=== PATIENT | female | born 1970 | race Caucasian/White ===

== ENCOUNTER 2024-08-31 06:45 | Outpatient (OUT) | payer BC, SELFPAY ==
--- OUTSIDE RECORDS SUMMARY | 2024-06-20 04:40 | XMS_ITS ---
Author Organization [facility] in [place] Address [address] [place] [address] Care Team Providers Care Mixer Runner Name Role Phone None, Unknown or Primary Care Provider Unavailab Ema Barksdale Unavailable [phone] Allergies Allergen (clinical drug ingredient) Drug/Non Drug [...] Once a day for 30 days Lot: [id number] Exp: 2026dec 18 boxes 05/08/2024 Not-Taking Probiotic [...] point) Points 1 Interpretation Negative Vital Signs Height 66 in 06/20/2024 Weight 197.4 lbs 06/20/2024 BMI 31.86 kg/m2 06/20/2024 Encounters Encounter Location Date Provider Diagnosis Urology [address] [place] [address] 06/20/2024 Ema Hanson Unspecified urinary incontinence R32 [...] * Tk HAGANAneudyOB:[birth year] (54 yo F)Acc No.[id number]:06/20/2024 Patient: Lauren CONTRERAS Provider: UDAY Faust :1970 A ge:54 Y S ex:Female Date:06/20/2024 Address:[address] [place], [place] [address] Pcp:Unknown or None Check In:08:38 AM ESTCheck [...] a day , Notes to Pharmacist: Lot: [id number]: 2026 boxesMedication List reviewed and reconciled with the patientNot-Taking/PRN Gemtesa(Vibegron) 75 MG Tablet 1 tablet Orally Once a day , Notes to Pharmacist: Lot: [id number]: 2026 boxesMedication List reviewed and reconciled with [...] Procedure Codes: 5 1728 COMPLEX CYSTO WVOID [id number] COMPLEX CYSTO WVOID [id number] COMPLEX UROFLOW.WCALIB.89048 COMPLEX UROFLOW.WCALIB.74510 EMG ANAL OTHER THAN [id number] EMG ANAL OTHER THAN [id number] INFORMATION COORDINATOR STUDIES; INTRA-ABDOM.22248 INFORMATION COORDINATOR STUDIES; INTRA-ABDOM. * Follow Up: Dr Lewis/cystoscopy * * Sign off status: Completed Visit Status: C HK (Check Out) true * Provider: Neil Hanson NP-Azalea Date: 0 06/20/2024 Generated for Kelsey sadler/Sangeeta/eTransmitting on: 0 08/31/2024 06:51 AM EDT
--- OUTSIDE RECORDS SUMMARY | 2024-06-26 05:20 | XMS_ITS ---
Author Organization The [facility] in [place] Address [address] [place] [address] Care Team Providers Care Photoresist Printer Name Role Phone None, Unknown or Primary Care Provider Reillyab Rajat Contreras Unavailable [phone] Allergies Allergen (clinical drug ingredient) Drug/Non Drug Allergy documented on EMR Reaction Allergy Type Onset Date Status amoxicillin / clavulanate Augmentin causes yeast infection Drug Allergy Active REASON FOR VISIT Cysto for Incontinence, had bladder sling in 2019, PT stopped oxybutynin last week per risa. Medications Medication SIG (Take, Route, Frequency, Duration) Notes Start Date End Date Status Mirabegron ER 50 MG 1 tablet Orally Once a day for 30 days 06/26/2024 Active Probiotic Active Wellbutrin 05/08/2024 Active Zepbound Active cloNIDine HCl 0.1 MG Oral for 30 Days Active Multivitamin Active Omeprazole 05/08/2024 Active oxyBUTYnin Chloride ER 10 MG TAKE 1 TABLET (10 MG) BY MOUTH DAILY DO NOT CRUSH, CHEW, OR SPLIT. Oral for 90 Days Not-Taking CeleBREX Active Boswellia Active busPIRone HCl 10 MG TAKE 2 TABLETS BY MO UTH IN THE MORNING AND 2 TABLETS BEFORE BEDTIME. Oral for 90 Days Active Lorraine 05/08/2024 Active Social History Tobacco Use: Social History Observation Description Date Details (start date - stop date) Former Smoker NA - NA Tobacco Control (Standard) Question Answer Notes Tobacco use: Former smoker Vital Signs Height 66 in 06/26/2024 Weight 195 lbs 06/26/2024 BMI 31.47 kg/m2 06/26/2024 Encounters Encounter Location Date Provider Diagnosis Urology [address] [place] [address] 06/26/2024 Rajat Lewis Unspecified urinary incontinence R32 Assessments Encounter Date Diagnosis (ICD Code) Assessment Notes Treatment Notes Treatment Clinical Notes Section Notes 06/26/2024 Unspecified urinary incontinence (ICD-10 - R32) try myrbetriq and timed void if not better do botox first may eventually need pubovag sling Plan Of Treatment Medication Medication Name Sig Start Date Stop Date Notes Mirabegron ER 50 MG 1 tablet Orally Once a day for 30 days 06/26/2024 Treatment Notes Assessment Notes Unspecified urinary incontinence try myrbetriq and timed void if not better do botox first may eventually need pubovag sling Next Appt Details Follow Up: 2 Months, Reason: joyce Procedure Notes * Category Sub-Category Detail Notes Flexible Cystoscopy Patient Consent: Risks, bene fits, and some of the potential complications of the procedure were discussed at length with the patient including infection, bleeding, voiding discomfort, urinary retention, fever, chills, sepsis, and others. All questions were answered. Informed consent was obtained. Sterile technique and intraurethral analgesia were used Procedure Note: The lower urinary tr act was carefully examined. The procedure was well-tolerated and without complications. Instructions were given to call the office immediately for bloody urine, difficulty urinating, urinary retention, painful or frequent urination, fever, chills, nausea, vomiting or other illness. The patient stated that he understood these instructions and would comply with them Meatus: Normal size, Normal location, normal condition Urethra: No hypermobility, no leakage Ureteral Orifices: Normal location, nor mal size, normal shape, effluxed clear urine Bladder: no stones, normal mu cosa, no stones Progress Notes * LINDA, AbenaOB:[birth year] (54 yo F)Acc No.[id number]:06/26/2024 0 Patient: Lauren CONTRERAS Provider: Ming Lewis MD :1970 A ge:54 Y S ex:Female Date:06/26/2024 Address:[address] [place], [place] [address] Pcp:Unknown or None Check In:09:13 AM ESTCheck O ut:10:06 AM EST Subjective: * Chief Complaints: * C ysto for Incontinence, had bladder sling in 2019, PT stopped oxybutynin last week per risa. * HPI: U rology General: 06/26/24 Cystoscopy 06/20/24 URO/Risa pt did feel small leak [...] Weakness d enies. G enitourinary: Incontinence a dmits. F requent urination d enies. P ainful urination d enies. B lood [...] T obacco use: F ormer smoker D rugs/Alcohol: C affeine I ntake: 1 -2 cups per day Do you drink alcohol?: 2 per week. * Medications: T akingAllegra Boswellia busPIRone HCl 10 MG Tablet TAKE 2 TABLETS BY MOUTH IN THE MORNING AND 2 TABLETS BEFORE BEDTIME. Oral CeleBREX cloNIDine HCl 0.1 MG Tablet Oral Multivitamin Omeprazole Probiotic Wellbutrin(buPROPion HCl ER (XL)) Zepbound Taking Lorraine Taking Boswellia Taking busPIRone HCl 10 MG Tablet TAKE 2 TABLETS BY MOUTH IN THE MORNING AND 2 TABLETS BEFORE BEDTIME. Oral Taking CeleBREX Taking cloNIDine HCl 0.1 MG Tablet Oral Taking Multivitamin Taking Omeprazole Taking Probiotic Taking Wellbutrin(buPROPion HCl ER (XL)) Taking Zepbound Not-Taking/PRNoxyBUTYnin Chloride ER 10 MG Tablet Extended Release 24 Hour TAKE 1 TABLET (10 MG) BY MOUTH DAILY DO NOT CRUSH, CHEW, OR SPLIT. Oral Not-Taking/PRN oxyBUTYnin Chloride ER 10 MG Tablet Extended Release 24 Hour TAKE 1 TABLET (10 MG) BY MOUTH DAILY DO NOT CRUSH, CHEW, OR SPLIT. Oral DiscontinuedGemtesa(Vibegron) 75 MG Tablet 1 tablet Orally Once a day , Notes to Pharmacist: Lot: [id number]: 2026 boxesMedication List reviewed and reconciled with the patientDiscontinued Gemtesa(Vibegron) 75 MG Tablet 1 tablet Orally Once a day , Notes to Pharmacist: Lot: [id number]: 2026 boxesMedication List reviewed and reconciled with the patient * Allergies: A ugmentin: causes yeast infection - Side Effects - Criticality Lowno[Allergies Verified] Objective: * Vitals: W t:195lbs, Ht: 66 in, BMI:31.47Index, Ht-cm: 167.64 cm, Wt-k.45 kg. Assessment: * Assessment: 1. U nspecified urinary incontinence - R32 (Primary) Plan: * Treatment: * Procedures: F lexible Cystoscopy: Patient Consent: R isks, benefits, and some of the potential complications of the procedure were discussed at length with the patient including infection, bleeding, voiding discomfort, urinary retention, fever, chills, sepsis, and others. All questions were answered. Informed consent was obtained. Sterile technique and intraurethral analgesia were used.? Procedure Note: T he lower urinary tract was carefully examined. The procedure was well-tolerated and without complications. Instructions were given to call the office immediately for bloody urine, difficulty urinating, urinary retention, painful or frequent urination, fever, chills, nausea, vomiting or other illness. The patient stated that he understood these instructions and would comply with them. Meatus: N ormal size, Normal location, normal condition.? Urethra: N o hypermobility, no leakage. Ureteral Orifices: N ormal location, normal size, normal shape, effluxed clear urine. Bladder: n o stones, normal mucosa, no stones. ? * Procedure Codes: 1999 CYSTOURETHROSCOPY * Follow Up: 2 Months (Reason: joyce) * * Sign off status: Completed Visit Status: C HK (Check Out) true * Provider: Ming Lewis MD Date: 0 06/26/2024 Generated for Pauli doroteo/Sangeeta/Steffanyitting on: 0 08/31/2024 06:51 AM EDT
--- OUTSIDE RECORDS SUMMARY | 2024-08-28 06:30 | XMS_ITS ---
Author Organization [facility] [place] Address [address] [place] [address] Care Team Providers Care Servicing Manager Name Role Phone None, Unknown or Primary Care Provider Unavailab Kelvin Elder Unavailable [phone] REASON FOR VISIT 2 mos Encounters Encounter Location Date Provider Diagnosis Urology [address] [place] [address] 08/28/2024 Kelvin Rogers Plan Of Treatment No Information Progress Notes * LINDA AbenaOB:[birth year] (54 yo F)Acc No.[id number]:08/28/2024 UNLOCKED PROGRESS NOTE Patient: Lauren CONTRERAS Provider: Neil Rogers NP :1970 A ge:54 Y S ex:Female Date:08/28/2024 Address:[address] [place], [place] [id number] Pcp:Unknown or None Subjective: * Chief Complaints: * 1 . 2 mos. * Medical History: Objective: * Vitals: Assessment: Plan: * Treatment: * * Electronic signature of Kelvin Rogers NP on 08/31/2024 at 06:51 AM EDT Sign off status: Pending Visit Status: C ANCSMS (CANCSMS) * Provider: Neil Rogers NP Date: 0 08/28/2024 Generated for Kelsey sadler/Sangeeta/eTransmitting on: 08/31/2024 06:51 AM EDT
--- OUTSIDE RECORDS SUMMARY | 2024-08-28 18:30 | XMS_ITS | Encounter Summary ---
Author Organization [facility] Address [address] [place] [address] Care Team Providers Care Project Inspector Name Role Phone Jolie Mohamud MD Primary Care Provider [phone] Rachele Mccallum PREPARATION SUPERVISOR FREEZING Unavailable [phone] Anna Pino DO Unavailable [phone] Rachele Mccallum PREPARATION SUPERVISOR FREEZING Unavailable Reason for Visit * Reason Comments Annual Exam Encounter Details Date Type Department Care Team (Late st Contact Info) Description 08/28/2024 6:30 PM EDT Office Visit [facility] [address] [place] [address] Rachele Mccallum PREPARATION SUPERVISOR FREEZING [address] [place] [address] Generalized anxiety disorder (Primary Dx); Obesity (BMI 30-39.9); Encounter for antibody response examination; Hair loss Social History Tobacco Use Types Packs/Day Years Used Date Smoking Tobacco: Former Cigarettes 0.5 26.5 0 09/13/1987 - 03/29/2014 Smokeless Tobacco: Never Comments:Last smoked: 5-10 y ears. Moderate cigarette smoker (10-19 cigs/day) Alcohol Use Standard Drinks/Week Comments Yes 4 (1 standard drink = 0.6 oz pur e alcohol) Caffeine intake: 140 mg daily Social Connection and Isolat ion Panel [NHANES] Answer Date Recorded In a typical week, how many times do you talk on the phone with family, friends, or neighbors? Once a week 05/23/2023 How often do you get togethe r with friends or relatives? Once a week 05/23/2023 How often do you attend chur ch or yarsanism services? More than 4 times per year 05/23/2023 Do you belong to any clubs o r organizations such as roman catholic groups, unions, fraternal or athletic groups, or school groups? Yes 05/23/2023 How often do you attend meet ings of the clubs or organizations you belong to? More than 4 times per year 05/23/2023 Are you , , di vorced, , never , or living with a partner? 05/23/2023 AUDIT-C Answer Date Recorded Q1: How often do you have a drink containing alc ohol? 2-3 times a week 05/23/2023 Q2: How many drinks containi ng alcohol do you have on a typical day when you are drinking? 1 or 2 05/23/2023 Q3: How often do you have si x or more drinks on one occasion? Never 05/23/2023 Overall Financial Resource Strain (CARDIA) Answe r Date Recorded How hard is it for you to pa y for the very basics like food, housing, medical care, and heating? Not hard at all 05/23/2023 PHQ-2 Answer Date Recorded Patient Health Questionnaire-2 Score 0 07/24/2024 [facility] - Occupational Stress Questionnaire Answer Date Recorded Do you feel stress - tense, restless, nervous, or anxious, or unable to sleep at night because your mind is troubled all the time - these days? To some extent 05/23/2023 Exercise Vital Sign Answer Date Recorde d On average, how many days pe r week do you engage in moderate to strenuous exercise (like a brisk walk)? 4 days 05/23/2023 On average, how many minutes do you engage in exercise at this level? 40 min 05/23/2023 Hunger Vital Sign Answer Date Recorded Within the past 12 months, y ou worried that your food would run out before you got the money to buy more. Never true 05/23/19 24 Within the past 12 months, t he food you bought just didn't last and you didn't have money to get more. Never true 05/23/2023 PRAPARE - Transportation Answer Date Re corded In the past 12 months, has l ack of transportation kept you from medical appointments or from getting medications? No 05/13 In the past 12 months, has l ack of transportation kept you from meetings, work, or from getting things needed for daily living? No 05/23/2023 Housing Stability Vital Sign Answer Abdirizak e Recorded In the last 12 months, was t here a time when you were not able to pay the mortgage or rent on time? No 05/23/2023 In the last 12 months, how many places have you lived? 1 05/23/2023 In the last 12 months, was t here a time when you did not have a steady place to sleep or slept in a retirement (including now)? No 05/23/2023 Comments Unknown Sex and Gender Information Value Date Recorded Sex Assigned at Not on file Legal Sex Female 6:47 PM EDT Gender Identity Not on file Sexual Orientation Not on file documented as of this encounter Last Filed Vital Signs Vital Sign Reading Time Taken Comments Blood Pressure 118/70 08/28/2024 4:39 PM EDT Pulse 76 08/28/2024 4:39 PM EDT Temperature - - Respiratory Rate 18 08/28/2024 4:39 PM EDT Oxygen Saturation 98% 08/28/2024 4:39 PM EDT Inhaled Oxygen Concentration - - Weight 84.4 kg (186 lb) 08/28/2024 4:39 PM EDT Height 165.1 cm (5' 5 ) 08/28/2024 4:39 PM EDT Body Mass Index 30.95 08/28/2024 4:39 PM EDT documented in this encounter Progress Notes * Rachele Mccallum NP - 08/28/2024 6:30 PM EDT Images from the original note were not included. Lauren Hagan is a 54 y.o. female presents with chief complaint of Annual Exam HPI: HPI History of Present Illness The patient presents for a physical examination, weight management, and hair loss. She has been accepted into a nursing program and requires a physical examination to be completed before 09/12/2024. Additionally, she needs titers for hepatitis B, chickenpox, measles, rubella, and mumps. Her last tetanus vaccine was administered in 2016. She received her COVID-19 vaccine in 12/2023. She is currently on Zepbound 15 mg for weight management, which has resulted in a significant weight loss of approximately 85 pounds. However, she has been informed that her insurance will no longer cover this medication. She has not previously tried Wegovy. She reports that Zepbound has been effective in managing her cravings. She is also taking Zoloft, which has helped reduce her emotional outbursts, although she still experiences occasional crying episodes. She attributes these mood swings to menopause. She has renewed her Ativan prescription. She is experiencing significant hair loss, which she suspects may be due to menopause or medicationside effects. She has started taking vitamins and Moerie Ultimate Hair Boost to address this issue. She has also incorporated protein shakes into her diet. SOCIAL HISTORY She does not smoke marijuana. SUBJECTIVE: MEDICATIONS: Current Outpatient Medications Medication Instructions Wvywabyml-Gufwwcbtsvu-Mou D (Glucosamine Complex -Boswellia) tablet Daily busPIRone (BUSPAR) 20 mg, Oral, 2 times daily busPIRone (BUSPAR) 20 mg, Oral, 2 times daily celecoxib (CELEBREX) 200 mg, Oral, Every morning levocetirizine (Xyzal) 5 MG tablet TAKE 1 TABLET BY MOUTH EVERY DAY IN THE EVENING FOR 90 DAYS LORazepam (ATIVAN) 0.5 mg, Oral, Daily PRN mirabegron ER (MYRBETRIQ) 50 mg, Daily Multiple Vitamin (MULTIVITAMIN ADULT PO) Multivitamin omeprazole (PRILOSEC) 40 mg, Oral, Every 12 hours saccharomyces boulardii (FLORASTOR) 250 mg, 2 times daily sertraline (ZOLOFT) 50 mg, Oral, Daily Vitamin E (E-400) 268 MG (400 UNIT) capsule 268 capsules, Daily Zepbound 15 mg, Subcutaneous, Weekly I have reviewed and reconciled the history and medication list with the patient today. REVIEW OF SYMPTOMS: Review of Systems Constitutional: Negative. HENT: Negative. Respiratory: Negative for cough, shortness of breath and wheezing. Cardiovascular: Negative for chest pain. Gastrointestinal: Negative for abdominal pain. Genitourinary: Negative. Musculoskeletal: Negative. Skin: Negative. Neurological: Negative. OBJECTIVE: Visit Vitals BP 118/70 Pulse 76 Resp 18 Ht 5' 5 Wt 186 lb SpO2 98% BMI 30.95 kg/m?? Smoking Status Former BSA 1.97 m?? Physical Exam Vitals and nursing note reviewed. Constitutional: Appearance: Normal appearance. HENT: Head: Normocephalic and atraumatic. Right Ear: Tympanic membrane normal. Left Ear: Tympanic membrane normal. Nose: Nose normal. Eyes: Extraocular Movements: Extraocular movements intact. Conjunctiva/sclera: Conjunctivae normal. Pupils: Pupils are equal, round, and reactive to light. Cardiovascular: Rate and Rhythm: Normal rate and regular rhythm. Heart sounds: Normal heart sounds. Pulmonary: Effort: Pulmonary effort is normal. Breath sounds: Normal breath sounds. Musculoskeletal: Cervical back: Normal range of motion and neck supple. Skin: General: Skin is warm and dry. Capillary Refill: Capillary refill takes less than 2 seconds. Neurological: Mental Status: She is alert and oriented to person, place, and time. ASSESSMENT AND PLAN: Assessment/Plan Diagnoses and all orders for this visit: Generalized anxiety disorder Obesity (BMI 30-39.9) - Tirzepatide-Weight Management (Zepbound) 15 MG/0.5ML solution auto-injector; Inject 15 mg under the skin 1 (one) time per week Encounter for antibody response examination - Hepatitis B surface antibody; Future - Varicella zoster antibody, IgG; Future - MEASLES, MUMPS AND REBELLA-(MMR)AB(IGG)PANEL,IMMUNE STATUS; Future Hair loss Assessment & Plan 1. Physical examination. - A comprehensive physical examination will be conducted today. - Titers for hepatitis B, chickenpox, measles, rubella, and mumps will be ordered. - The patient will bring the necessary paperwork for the nursing program to be filled out. - Last tetanus vaccination was in 2016, no titer required. 2. Weight management. - A 3-month renewal of Zepbound 15 mg will be provided. - If the insurance does not cover it, a transition to Wegovy will be considered. - Wegovy is a semaglutide, similar in effect to tirzepatide. - The patient has lost approximately 85 pounds with current medication. 3. Hair loss. - Hair loss could be attributed to stress, weight loss, or inadequate protein intake. - The patient is currently taking vitamins and Moerie Ultimate Hair Boost supplements. - Advised to continue these supplements and monitor for any changes. - Considering the possibility of menopause contributing to hair loss. 4. Medication management. - The patient reports improvement in symptoms with Zoloft. - Zoloft has reduced crying episodes and improved emotional stability. - The patient has renewed her Ativan prescription. - Continues to experience some crankiness, possibly related to menopause. documented in this encounter Plan of Treatment Scheduled Orders Name Type Priority Associated Diagnoses Orde r Schedule Hepatitis B surface antibody Lab Routine Encounter for antibody response examination Expected: 08/29/2024 (Approximate), Expires: 08/29/2025 Varicella zoster antibody, IgG Lab Routine Encounter for antibody response examination Expected: 08/29/2024 (Approximate), Expires: 08/29/2025 MEASLES, MUMPS AND REBELLA-(MMR)AB(IGG)PANE L,IMMUNE STATUS Lab Routine Encounter for antibody response examination Expected: 08/29/2024 (Approximate), Expires: 08/29/2025 documented as of this encounter Goals Goal Patient Goal Type Associated Problems Recent Progress Patient-Stated? Author Help patient manage antidepressant medication Care Plan Patient on antidepressant monitoring plan No Rachele Mccallum NP documented as of this encounter Visit Diagnoses Diagnosis Generalized anxiety disorder- Primary Generalized anxiety disorder Obesity (BMI 30-39.9) Encounter for antibody response examination Hair loss Unspecified alopecia documented in this encounter Additional Health Concerns Active Problems Noted Date Diagnosed Date Patient on antidepressant monitoring plan 2024 Assessment Noted Time PHQ-9 Depression Total Score: 0 07/25/19 6:00 PM EDT documented as of this encounter Care Teams Project Inspector Relationship Specialty Start Date End Date Jolie Mohamud MD [address] [place] [address] PCP - General Family Medicine 08/11/22 Rachele Mccallum NP [address] [place] [address] PCP - [employer] 06/13/24 Rachele Mccallum NP [address] [place] [address] Nurse Practitioner Family Medicine 08/11/22 Anna Pino DO [address] [place] [address] Referring Physician Neurology 05/31/23 documented as of this encounter
--- OUTSIDE RECORDS SUMMARY | 2024-08-31 06:51 | XMS_ITS | Encounter Summary ---
Author Organization [facility] Address [address] [place] [address] Care Team Providers Care Nuclear Powerplant Mechanic Name Role Phone Jolie Mohamud MD Primary Care Provider [phone] Rachele Mccallum PAPER CONE MACHINE OPERATOR Unavailable [phone] Anna Pino DO Unavailable [phone] Rachele Mccallum PAPER CONE MACHINE OPERATOR Unavailable [phone] Reason for Visit * Reason Onset Date Comments Med Refill 08/23/2023 Encounter Details Date Type Department Care Team (Late st Contact Info) Description 08/23/2023 Refill [facility] [address] [place] [address] [facility] PAPER CONE MACHINE OPERATOR [address] [place] [address] Recurrent major depressive disorder, in partial remission ; Chronic bilateral low back pain without sciatica Social History Tobacco Use Types Packs/Day Years Used Date Smoking Tobacco: Former Cigarettes 0.5 26.5 0 09/13/1987 - 03/29/2014 Smokeless Tobacco: Never Comments:Last smoked: 5-10 y ears. Moderate cigarette smoker (10-19 cigs/day) Alcohol Use Standard Drinks/Week Comments Yes 4 (1 standard drink = 0.6 oz pure alcohol) Caffeine intake: 3-4 cups per day coffee Social Connection and Isolat ion Panel [NHANES] Answer Date Recorded In a typical week, how many times do you talk on the phone with family, friends, or neighbors? Once a week 05/23/2023 How often do you get togethe r with friends or relatives? Once a week 05/23/2023 How often do you attend chur or restorationist services? More than 4 times per year 05/23/2023 Do you belong to any clubs o r organizations such as hinduism groups, unions, fraternal or athletic groups, or [...] Date Recorded Patient Health Questionnaire-2 Score 0 06/24/2023 [facility] Occupat ional Health - Occupational Stress [...] place to sleep or slept in a assisted (including now)? No 05/23/2023 Comments Unknown Sex and Gender Information Value Date Recorded Sex Assigned at Not on file Legal Sex Female 6:47 PM EDT Gender Identity Not on file Sexual Orientation Not on file documented as of this encounter Miscellaneous Notes * Telephone Encounter - Allison Garcia MA - 08/23/2023 8:22 AM EDT Approving, but needs appt for additional refills. documented in this encounter Plan of Treatment Not on file documented as of this encounter Visit Diagnoses Diagnosis Recurrent major depressive disorder, in partial remission Chronic bilateral low back pain without sciatica documented in this encounter Additional Health Concerns Assessment Noted Time PHQ-9 Depression Total Score: 6 06/24/19 24 9:13 AM EDT documented as of this encounter Care Teams Nuclear Powerplant Mechanic Relationship Specialty Start Date End Date Jolie Mohamud MD [address] [place] [address] PCP - General Family Medicine 08/11/22 Rachele Mccallum NP [address] [place] [address] [facility] Rachele Mccallum NP [address] [place] [address] Nurse Practitioner Family Medicine 08/11/22 Anna Pino DO [address] [place] [address] Referring Physician Neurology 05/31/23 documented as of this encounter
--- OUTSIDE RECORDS SUMMARY | 2024-08-31 06:52 | XMS_ITS | Encounter Summary ---
Author Organization [facility] Address [address] [place] [address] Care Team Providers Care Dye Winch Operator Name Role Phone Jolie Mohamud MD Primary Care Provider [phone] Rachele Mccallum LAUNDRY CLERK Unavailable Anna Pino DO Unavailable [phone] Rachele Mccallum LAUNDRY CLERK Unavailable [phone] Reason for Visit * Reason Comments Med Change Request Encounter Details Date Type Department Care Team (Late st Contact Info) Description 06/19/2024 Refill [facility] [address] [place] [address] Bambi Contreras NP [address] [place], [place] [id number] Hot flashes Social History Tobacco Use Types Packs/Day Years [...] often do you attend chur ch or alevism services? More than 4 times per year 05/23/2023 Do you belong to any clubs o r organizations such as cheondoism groups, unions, fraternal or athletic groups, or [...] Answer Date Recorded Patient Health Questionnaire-2 Score 1 03/27/2024 [facility] Occupat ional Health - Occupational Stress [...] place to sleep or slept in a fci (including now)? No 05/23/2023 Comments Unknown Sex and Gender Information Value Date Recorded Sex Assigned at Not on file Legal Sex Female 6:47 PM EDT Gender Identity Not on file Sexual Orientation Not on file documented as of this encounter Miscellaneous Notes * Telephone Encounter - Monica Sandhu MA - 06/19/2024 1:41 PM EDT duplicate documented in this encounter Plan of Treatment Not on file documented as of this encounter Visit Diagnoses Diagnosis Hot flashes documented in this encounter Additional Health Concerns Assessment Noted Time PHQ-9 Depression Total Score: 3 03/27/19 25 11:00 AM EST documented as of this encounter Care Teams Dye Winch Operator Relationship Specialty Start Date End Date Jolie Mohamud MD [address] [place] [address] PCP - General Family Medicine 08/11/22 Rachele Mccallum NP [address] [facility] [place] [address] [facility] 06/13/24 Rachele Mccallum NP [address] [facility] [place] [address] Nurse Practitioner Family Medicine 08/11/22 Anna Pino DO [address] [place] [address] Referring Physician Neurology 05/31/23 documented as of this encounter
--- OUTSIDE RECORDS SUMMARY | 2024-08-31 06:52 | XMS_ITS | Encounter Summary ---
Author Organization [employer] tem Address [id number] [address] [place] [address] Care Team Providers Care Hand Zipper Trimmer Name Role Phone Jolie Mohamud MD Primary Care Provider [phone] Encounter Details Date Type Department Care Team (Late st Contact Info) Description 10/23/2022 [facility] - Medical Oncology [address] [place] [phone] Mamie Banks Social History Tobacco Use Types Packs/Day Years Used Date Smoking Tobacco: Former Smokeless Tobacco: Never Comments:quit 3 years ago Alcohol Use Standard Drinks/Week Comments Yes 0 (1 standard drink = 0.6 oz pur e alcohol) social Childcare Answer Date Recorded Childcare Unknown 08/18/2018 Employment Answer Date Recorded Employment Unknown 08/18/2018 Purpose - Life Answer Date Recorded Purpose and direction in life Unknown Comments No Sex and Gender Information Value Date Recorded Sex Assigned at Not on file Legal Sex Female 11:43 AM EDT Gender Identity Not on file Sexual Orientation Not on file documented as of this encounter Plan of Treatment Not on file documented as of this encounter Visit Diagnoses Not on filedocumented in this encounter Care Teams Hand Zipper Trimmer Relationship Specialty Start Date End Date Jolie Mohamud MD [address] [place] [address] PCP - General Family Medicine 06/06/18 documented as of this encounter
--- OUTSIDE RECORDS SUMMARY | 2024-08-31 06:52 | XMS_ITS | Encounter Summary ---
Author Organization [facility] Address [address] [place] [address] Care Team Providers Care Chucking And Sawing Machine Operator Name Role Phone Jolie Mohamud MD Primary Care Provider [phone] Rachele Mccallum DENTAL INSTRUCTOR Unavailable [phone] Anna Pino DO Unavailable [phone] Rachele Mccallum DENTAL INSTRUCTOR Unavailable [phone] Reason for Visit * Reason Onset Date Comments Med Refill 08/16/2024 Encounter Details Date Type Department Care Team (Late st Contact Info) Description 08/16/2024 Refill [facility] [address] [place] [address] Sabina Krueger, DENTAL INSTRUCTOR [address] [place] [address] Generalized anxiety disorder ; Recurrent major depressive disorder, in partial remission Social History Tobacco Use Types Packs/Day Years [...] often do you attend chur ch or roman catholic services? More than 4 times per year 05/23/2023 Do you belong to any clubs o r organizations such as baptist groups, unions, fraternal or athletic groups, or [...] Recorded Patient Health Questionnaire-2 Score 0 07/24/2024 [facility] - Occupational [...] place to sleep or slept in a care home (including now)? No 05/23/2023 Comments Unknown Sex and Gender Information Value Date Recorded Sex Assigned at Not on file Legal Sex Female 6:47 PM EDT Gender Identity Not on file Sexual Orientation Not on file documented as of this encounter Plan of Treatment Not on file documented as of this encounter Goals Goal Patient Goal Type Associated Problems Recent Progress Patient-Stated? Author Help patient manage antidepressant medication Care Plan Patient on antidepressant monitoring plan No Rachele Mccallum NP documented as of this encounter Visit Diagnoses Diagnosis Generalized anxiety disorder Generalized anxiety disorder Recurrent major depressive disorder, in partial remission documented in this encounter Additional Health Concerns Active Problems Noted Date Diagnosed Date Patient on antidepressant monitoring plan 2024 Assessment Noted Time PHQ-9 Depression Total Score: 0 07/25/19 25 6:00 PM EDT documented as of this encounter Care Teams Chucking And Sawing Machine Operator Relationship Specialty Start Date End Date Jolie Mohamud MD [address] [place] [address] PCP - General Family Medicine 08/11/22 Rachele Mccallum NP [address] [place] [address] PCP - [place] [employer] 06/13/24 Rachele Mccallum NP [address] [place] [address] Nurse Practitioner Family Medicine 08/11/22 Anna Pino DO [address] [place] [address] Referring Physician Neurology 05/31/23 documented as of this encounter
--- OUTSIDE RECORDS SUMMARY | 2024-08-31 06:52 | XMS_ITS | Encounter Summary ---
Author Organization [facility] Address [address] [place] [address] Care Team Providers Care Retail Sales Manager Name Role Phone Jolie Mohamud MD Primary Care Provider [phone] Rachele Mccallum SANDER SETTER Unavailable [phone] Anna Pino DO Unavailable [phone] Rachele Mccallum SANDER SETTER Unavailable Encounter Details Date Type Department Care Team (Late st Contact Info) Description 11/26/2022 Abstract [facility] [address] [place] [address] Jolie Mohamud MD [address] [place] [address] Social History Tobacco Use Types Packs/Day Years Used Date Smoking Tobacco: Former Cigarettes 2013 Smokeless Tobacco: Never Comments:Last smoked: 5-10 y ears. Moderate cigarette smoker (10-19 cigs/day) Alcohol Use Standard Drinks/Week Comments Yes 4 (1 standard drink = 0.6 oz pure alcohol) Caffeine intake: 3-4 cups per day coffee PHQ-2 Answer Date Recorded Patient Health Questionnaire-2 Score 0 10/20/2022 Comments Unknown Sex and Gender Information Value Date Recorded Sex Assigned at Not on file Legal Sex Female 6:47 PM EDT Gender Identity Not on file Sexual Orientation Not on file documented as of this encounter Plan of Treatment Not on file documented as of this encounter Visit Diagnoses Not on filedocumented in this encounter Care Teams Retail Sales Manager Relationship Specialty Start Date End Date Jolie Mohamud MD [address] [place], [place] [phone] PCP - General Family Medicine 08/11/22 Rachele Mccallum NP [address] [facility] [place] [id number] P[facility] - [facility] 06/13/24 Rachele Mccallum NP [address] [place], [place] [phone] Nurse Practitioner Family Medicine 08/11/22 Anna Pino DO [address] [place] [address] Referring Physician Neurology 05/31/23 documented as of this encounter
--- OUTSIDE RECORDS SUMMARY | 2024-08-31 06:52 | XMS_ITS | Encounter Summary ---
Author Organization [facility] Address [address] [place] [address] Care Team Providers Care Leather Goods I Assembler Name Role Phone Jolie Mohamud MD Primary Care Provider [phone] Rachele Mccallum METAL TECHNICIAN Unavailable [phone] Anna Pino DO Unavailable [phone] Rachele Mccallum METAL TECHNICIAN Unavailable [phone] Encounter Details Date Type Department Care Team (Late st Contact Info) Description 01/01/2023 Orders Only [facility] [address] [place] [address] Rachele Mccallum METAL TECHNICIAN [address] [place], [place] [id number] Social History Tobacco Use Types Packs/Day Years [...] on filedocumented in this encounter Care Teams Leather Goods I Assembler Relationship Specialty Start Date End Date Jolie Mohamud MD [address] [place], [place] [phone] PCP - General Family Medicine 08/11/22 Rachele Mccallum NP [address] [facility] [place] [address] 06/13/24 Rachele [facility]ccallum NP [address] [facility] [place] [address] Nurse Practitioner Family Medicine 08/11/22 Anna Pino DO [address] [place] [address] Referring Physician Neurology 05/31/23 documented as of this encounter
--- OUTSIDE RECORDS SUMMARY | 2024-08-31 06:52 | XMS_ITS | Encounter Summary ---
Author Organization [facility] Address [address] [place] [address] Care Team Providers Care Tipple Engineer Name Role Phone Jolie Mohamud MD Primary Care Provider [phone] Rachele Mccallum TRACK WELDER Unavailable [phone] Anna Pino DO Unavailable [phone] Rachele Mccallum TRACK WELDER Unavailable Reason for Visit * Reason Comments Med Refill Encounter Details Date Type Department Care Team (Late st Contact Info) Description 04/19/2024 Refill [facility] [address] [place] [address] Bambi Contreras NP [address] [place], [place] [id number] Spondylosis without myelopathy or radiculopathy, lumbar region Social History Tobacco Use Types Packs/Day Years [...] often do you attend chur ch or anabaptism services? More than 4 times per year 05/23/2023 Do you belong to any clubs o r organizations such as spiritism groups, unions, fraternal or athletic groups, or [...] Recorded Patient Health Questionnaire-2 Score 1 03/27/2024 [facility] of Occupat ional [facility] - Occupational Stress Questionnaire Answer Date Recorded [...] place to sleep or slept in a halfway (including now)? No 05/23/2023 Comments Unknown Sex and Gender Information Value Date Recorded Sex Assigned at Not on file Legal Sex Female 6:47 PM EDT Gender Identity Not on file Sexual Orientation Not on file documented as of this encounter Miscellaneous Notes * Telephone Encounter - Allison Garcia MA - 04/19/2024 7:08 AM EST Approving, but needs appt for additional refills. documented in this encounter Plan of Treatment Not on file documented as of this encounter Visit Diagnoses Diagnosis Spondylosis without myelopathy or radiculopathy, lumbar region documented in this encounter Additional Health Concerns Assessment Noted Time PHQ-9 Depression Total Score: 3 03/27/19 25 11:00 AM EST documented as of this encounter Care Teams Tipple Engineer Relationship Specialty Start Date End Date Jolie Mohamud MD [address] [place] [address] PCP - General Family Medicine 08/11/22 Rachele Mccallum NP [address] [place] [address] PCP - [place] [employer] 06/13/24 Rachele Mccallum NP [address] [facility] [place] [address] Nurse Practitioner Family Medicine 08/11/22 Anna Pino DO [address] [place] [address] Referring Physician Neurology 05/31/23 documented as of this encounter
--- OUTSIDE RECORDS SUMMARY | 2024-08-31 06:52 | XMS_ITS | Encounter Summary ---
Author Organization [facility] Address [id number] [address] [place] [address] Care Team Providers Care Cob Sawyer Name Role Phone Jolie Mohamud MD Primary Care Provider [phone] Reason for Visit * Reason Onset Date Comments GENETICS 11/09/2022 CLERICAL Encounter Details Date Type Department Care Team (Late st Contact Info) Description 11/09/2022 Telephone [facility] - Medical Oncology [address] [place] [address] [facility] [address] [id number] GENETICS (CLERICAL) Social History Tobacco Use Types Packs/Day Years Used Date Smoking Tobacco: Former Smokeless Tobacco: Never Comments:quit 3 years ago Alcohol Use Standard Drinks/Week Comments Yes 0 (1 standard drink = 0.6 oz pur e alcohol) social Overall Financial Resource Strain (CARDIA) Answe r Date Recorded How hard is it for you to pa y for the very basics like food, housing, medical care, and heating? Not hard at all 11/04/2022 PRAPARE - Transportation Answer Date Re corded In the past 12 months, has l ack of transportation kept you from medical appointments or from getting medications? No 10/14 In the past 12 months, has l ack of transportation kept you from meetings, work, or from getting things needed for daily living? No 11/04/2022 Housing Instability Answer Date Recorde d Are you worried or concerned that in the next two months you may not have stable housing that you own, rent or stay in as a part of a household? No 11/04/2022 Childcare Answer Date Recorded Childcare Unknown 08/18/2018 Employment Answer Date Recorded Employment Unknown 08/18/2018 Hunger Screening Answer Date Recorded Within the past 12 months we worried whether our food would run out before we got money to buy more. Never True 11/04/2022 Within the past 12 months th e food we bought just didn't last and we didn't have money to get more. Never True 11/04/2022 Purpose - Life Answer Date Recorded Purpose and direction in life Unknown Comments No Sex and Gender Information Value Date Recorded Sex Assigned at Not on file Legal Sex Female 11:43 AM EDT Gender Identity Not on file Sexual Orientation Not on file documented as of this encounter Miscellaneous Notes * Telephone Encounter - María Jamil - 11/09/2022 2:14 PM EDT Mailed 11/05/22 Genetics Consult to patient and faxed/routed to all providers ON 11/09/22 CM * Telephone Encounter - María Jamil - 11/09/2022 2:14 PM EDT Mailed 11/25/22 Genetics Follow-up to patient and faxed/routed to all providers - 11/26/2022 at 9:52 AM CM * Telephone Encounter - María Jamil - 11/09/2022 2:14 PM EDT Mailed 03/24/23 Genetics Follow-up WITH UPDATED RESULTS to patient and faxed/routed to all providers- 03/24/2023 at 1:46 PM CM documented in this encounter Plan of Treatment Not on file documented as of this encounter Visit Diagnoses Not on filedocumented in this encounter Care Teams Cob Sawyer Relationship Specialty Start Date End Date Jolie Mohamud MD [address] [place] [address] PCP - General Family Medicine 06/06/18 documented as of this encounter
--- OUTSIDE RECORDS SUMMARY | 2024-08-31 06:52 | XMS_ITS | Encounter Summary ---
Author Organization [facility] Address [address] [place] [address] Care Team Providers Care Council On Aging Director Name Role Phone Jolie Mohamud MD Primary Care Provider [phone] Rachele Mccallum AIRCRAFT TIME CLERK Unavailable [phone] Anna Pino DO Unavailable [phone] Rachele Mccallum AIRCRAFT TIME CLERK Unavailable [phone] Reason for Visit * Reason Comments Med Change Request Encounter Details Date Type Department Care Team (Late st Contact Info) Description 09/30/2022 Refill [facility] [address] [place] [address] Bambi Contreras NP [address] [place], [place] [phone] Seasonal allergies Social History Tobacco Use Types Packs/Day Years Used Date Smoking Tobacco: Former Cigarettes 2013 Smokeless Tobacco: Never Comments:Last smoked: 5-10 y ears. Moderate cigarette smoker (10-19 cigs/day) Alcohol Use Standard Drinks/Week Comments Yes 4 (1 standard drink = 0.6 oz pure alcohol) Caffeine intake: 3-4 cups per day coffee PHQ-2 Answer Date Recorded Patient Health Questionnaire-2 Score 0 08/25/2022 Comments Unknown Sex and Gender Information Value Date Recorded Sex Assigned at Not on file Legal Sex Female 6:47 PM EDT Gender Identity Not on file Sexual Orientation Not on file documented as of this encounter Plan of Treatment Not on file documented as of this encounter Visit Diagnoses Diagnosis Seasonal allergies Allergic rhinitis, cause unspecified documented in this encounter Care Teams Council On Aging Director Relationship Specialty Start Date End Date Jolie Mohamud MD [address] [place], [place] [phone] PCP - General Family Medicine 08/11/22 Rachele Mccallum NP [address] [place], [place] [address] PCP - [facility] 06/13/24 Rachele Mccallum NP [address] [place] [address] Nurse Practitioner Family Medicine 08/11/22 Anna Pino DO [address] [place] [address] Referring Physician Neurology 05/31/23 documented as of this encounter
--- OUTSIDE RECORDS SUMMARY | 2024-08-31 06:52 | XMS_ITS | Encounter Summary ---
Author Organization [facility] Address [address] [place] [address] Care Team Providers Care Cafeteria Server Name Role Phone Jolie Mohamud MD Primary Care Provider [phone] Rachele Mccallum CERTIFIED MASTER SAFE TECHNICIAN Unavailable [phone] Anna Pino DO Unavailable [phone] Rachele Mccallum CERTIFIED MASTER SAFE TECHNICIAN Unavailable Encounter Details Date Type Department Care Team (Late st Contact Info) Description 01/21/2023 Abstract [facility] [address] [place] [address] Bambi Contreras NP [address] [place] [address] Social History Tobacco Use Types [...] on filedocumented in this encounter Care Teams Cafeteria Server Relationship Specialty Start Date End Date Jolie Mohamud MD [address] [place], [place] [phone] PCP - General Family Medicine 08/11/22 Rachele Mccallum NP [address] [place], [place] [address] PCP - [facility] 06/13/24 Rachele Mccallum NP [address] [place], [place] [address] Nurse Practitioner Family Medicine 08/11/22 Anna Pino DO [address] [place] [address] Referring Physician Neurology 05/31/23 documented as of this encounter
--- OUTSIDE RECORDS SUMMARY | 2024-08-31 06:52 | XMS_ITS | Encounter Summary ---
Author Organization [facility] Address [address] [place] [address] Care Team Providers Care Coffee Roaster Helper Name Role Phone Jolie Mohamud MD Primary Care Provider [phone] Rachele Mccallum FORECLOSURE FIELD INSPECTOR Unavailable [phone] Anna Pino DO Unavailable [phone] Rachele Mccallum FORECLOSURE FIELD INSPECTOR Unavailable [phone] Reason for Visit * Reason Onset Date Comments Med Refill 08/16/2024 Encounter Details Date Type Department Care Team (Late st Contact Info) Description 08/16/2024 Refill [facility] [address] [place] [address] Jolie Mohamud MD [address] [place] [address] Generalized anxiety disorder Social History Tobacco Use Types Packs/Day Years [...] often do you attend chur ch or rastafari services? More than 4 times per year 05/23/2023 Do you belong to any clubs o r organizations such as temple groups, unions, fraternal or athletic groups, or [...] Recorded Patient Health Questionnaire-2 Score 0 07/24/2024 [facility] Occupat ional Health - Occupational Stress [...] Diagnosis Generalized anxiety disorder Generalized anxiety disorder documented in this encounter Additional Health Concerns Active Problems Noted Date Diagnosed Date Patient on antidepressant monitoring plan 2024 Assessment Noted Time PHQ-9 Depression Total Score: 0 07/25/19 25 6:00 PM EDT documented as of this encounter Care Teams Coffee Roaster Helper Relationship Specialty Start Date End Date Jolie Mohamud MD [address] [place] [address] PCP - General Family Medicine 08/11/22 Rachele Mccallum NP [address] [place] [address] PCP - [place] [employer] 06/13/24 Rachele Mccallum NP [address] [facility] [place] [address] Nurse Practitioner Family Medicine 08/11/22 Anna Pino DO [address] [place] [address] Referring Physician Neurology 05/31/23 documented as of this encounter
--- OUTSIDE RECORDS SUMMARY | 2024-08-31 06:52 | XMS_ITS | Encounter Summary ---
Author Organization [employer] [facility] Address [id number] [address] [place] [address] Care Team Providers Care Webmethods Architect Name Role Phone Jolie Mohamud MD Primary Care Provider [phone] Reason for Visit * Reason Comments Med Refill Encounter Details Date Type Department Care Team (Late st Contact Info) Description 10/03/2018 Refill [facility] [address] [place] [phone] Jose E Baldwin DO [address] [place], [place] [address] Social History Tobacco Use Types Packs/Day Years Used Date Smoking Tobacco: Former Smokeless Tobacco: Never Comments:quit 3 years ago Alcohol Use Standard Drinks/Week Comments Yes 0 (1 standard drink = 0.6 oz pur e alcohol) social Childcare Answer Date Recorded Childcare Unknown 08/18/2018 Employment Answer Date Recorded Employment Unknown 08/18/2018 Comments No Sex and Gender Information Value Date Recorded Sex Assigned at Not on file Legal Sex Female 11:43 AM EDT Gender Identity Not on file Sexual Orientation Not on file documented as of this encounter Plan of Treatment Not on file documented as of this encounter Visit Diagnoses Not on filedocumented in this encounter Care Teams Webmethods Architect Relationship Specialty Start Date End Date Jolie Mohamud MD [address] [facility] [place] [address] PCP - General Family Medicine 06/06/18 documented as of this encounter
--- OUTSIDE RECORDS SUMMARY | 2024-08-31 06:52 | XMS_ITS | Encounter Summary ---
Author Organization [facility] Address [address] [place] [address] Care Team Providers Care Society Reporter Name Role Phone Jolie Mohamud MD Primary Care Provider [phone] Rachele Mccallum HOT PLATE PLYWOOD PRESS OPERATOR Unavailable [phone] Anna Pino DO Unavailable [phone] Rachele Mccallum HOT PLATE PLYWOOD PRESS OPERATOR Unavailable [phone] Reason for Visit * Reason Comments Med Change Request Encounter Details Date Type Department Care Team (Late st Contact Info) Description 10/12/2023 Refill [facility] [address] [place] [address] Rachele Mccallum HOT PLATE PLYWOOD PRESS OPERATOR [address] [place] [address] Recurrent major depressive disorder, in partial remission Social History Tobacco Use Types Packs/Day Years Used Date Smoking Tobacco: Former Cigarettes 0.5 26.5 0 09/13/1987 - 03/29/2014 Smokeless Tobacco: Never Comments:Last smoked: 5-10 y ears. Moderate cigarette smoker (10-19 cigs/day) Alcohol Use Standard Drinks/Week Comments Not Currently 4 (1 standard drink = 0.6 oz [...] often do you attend chur ch or mosque services? More than 4 times per year 05/23/2023 Do you belong to any clubs o r organizations such as congregation groups, unions, fraternal or athletic groups, or [...] Answer Date Recorded Patient Health Questionnaire-2 Score 2 10/04/2023 [facility] of Occupat ional [facility] - Occupational Stress Questionnaire Answer Date Recorded [...] place to sleep or slept in a fpc (including now)? No 05/23/2023 Comments Unknown Sex and Gender Information Value Date Recorded Sex Assigned at Not on file Legal Sex Female 6:47 PM EDT Gender Identity Not on file Sexual Orientation Not on file documented as of this encounter Miscellaneous Notes * Telephone Encounter - Mary Huertas MA - 10/27/2023 9:43 AM EDT Pharmacy said everything looked good on there side. documented in this encounter Plan of Treatment Not on file documented as of this encounter Visit Diagnoses Diagnosis Recurrent major depressive disorder, in partial remission documented in this encounter Additional Health Concerns Assessment Noted Time PHQ-9 Depression Total Score: 11 10/03/ 024 1:17 PM EDT documented as of this encounter Care Teams Society Reporter Relationship Specialty Start Date End Date Jolie Mohamud MD [address] [place] [address] PCP - General Family Medicine 08/11/22 Rachele Mccallum NP [address] [place] [address] PCP - [place] [employer] 06/13/24 Rachele Mccallum NP [address] [facility] [place] [address] Nurse Practitioner Family Medicine 08/11/22 Anna Pino DO [address] [place] [address] Referring Physician Neurology 05/31/23 documented as of this encounter
--- OUTSIDE RECORDS SUMMARY | 2024-08-31 06:52 | XMS_ITS | Encounter Summary ---
Author Organization [facility] Address [address] [place] [address] Care Team Providers Care Measurer Machine Name Role Phone Jolie Mohamud MD Primary Care Provider Rachele Mccallum SPORTS COMMENTATOR Unavailable [phone] Anna Pino DO Unavailable [phone] Rachele Mccallum SPORTS COMMENTATOR Unavailable [phone] Encounter Details Date Type Department Care Team (Late st Contact Info) Description 08/28/2024 Bamboo flowsheet [facility] [address] [place] [address] Rachele Mccallum SPORTS COMMENTATOR [address] [place] [address] Social History Tobacco Use Types [...] How often do you attend chur or yarsanism services? More than 4 times per year 05/23/2023 Do you belong to any clubs o r organizations such as lutheran groups, unions, fraternal or athletic groups, or [...] Recorded Patient Health Questionnaire-2 Score 0 07/24/2024 [facility] of Occupat ional [facility] - Occupational Stress Questionnaire Answer Date Recorded [...] place to sleep or slept in a penitentiary (including now)? No 05/23/2023 Comments Unknown Sex [...] Diagnoses Not on filedocumented in this encounter Additional Health Concerns Active Problems Noted Date Diagnosed Date Patient on antidepressant monitoring plan 2024 Assessment Noted Time PHQ-9 Depression Total Score: 0 07/25/19 25 6:00 PM EDT documented as of this encounter Care Teams Measurer Machine Relationship Specialty Start Date End Date Jolie Mohamud MD [address] [place] [address] PCP - General Family Medicine 08/11/22 Rachele Mccallum NP [address] [place] [address] PCP - [place] [employer] 06/13/24 Rachele Mccallum NP [address] [place] [address] Nurse Practitioner Family Medicine 08/11/22 Anna Pino DO [address] [place] [address] Referring Physician Neurology 05/31/23 documented as of this encounter
--- OUTSIDE RECORDS SUMMARY | 2024-08-31 06:52 | XMS_ITS | Encounter Summary ---
Author Organization [facility] Address [address] [place] [address] Care Team Providers Care Boarder Hand Name Role Phone Jolie Mohamud MD Primary Care Provider [phone] Rachele Mccallum EXECUTIVE ASSISTANT TO PRESIDENT Unavailable [phone] Anna Pino DO Unavailable [phone] Rachele Mccallum EXECUTIVE ASSISTANT TO PRESIDENT Unavailable [phone] Encounter Details Date Type Department Care Team (Latest Contact Info) Description 08/28/2024 Travel Social History Tobacco Use Types Packs/Day Years [...] often do you attend chur ch or congregation services? More than 4 times per year 05/23/2023 Do you belong to any clubs o r organizations such as presybeterian groups, unions, fraternal or athletic groups, or [...] Recorded Patient Health Questionnaire-2 Score 0 07/24/2024 [facility] - Occupational [...] place to sleep or slept in a longterm (including now)? No 05/23/2023 Comments Unknown Sex [...] documented as of this encounter Care Teams Boarder Hand Relationship Specialty Start Date End Date Jolie Mohamud MD [address] [place] [address] PCP - General Family Medicine 08/11/22 Rachele Mccallum NP [address] [place] [address] PCP - [facility] 06/13/24 Rachele Mccallum NP [address] [place] [address] Nurse Practitioner Family Medicine 08/11/22 Anna Pino DO [address] [place] [address] Referring Physician Neurology 05/31/23 documented as of this encounter
--- OUTSIDE RECORDS SUMMARY | 2024-08-31 06:52 | XMS_ITS | Encounter Summary ---
Author Organization [facility] Address [address] [place] [address] Care Team Providers Care Systems Administrator Name Role Phone Jolie Mohamud MD Primary Care Provider [phone] Rachele Mccallum MINT MACHINE OPERATOR Unavailable [phone] Anna Pino DO Unavailable [phone] Rachele Mccallum MINT MACHINE OPERATOR Unavailable Encounter Details Date Type Department Care Team (Late st Contact Info) Description 05/12/2023 Abstract [facility] [address] [place] [address] Bambi Contreras NP [address] [place] [address] Social History Tobacco Use Types [...] on filedocumented in this encounter Care Teams Systems Administrator Relationship Specialty Start Date End Date Jolie Mohamud MD [address] [place], [place] [phone] PCP - General Family Medicine 08/11/22 Rachele Mccallum NP [address] [place], [place] [id number] PCP - [facility] 06/13/24 Rachele Mccallum NP [address] [place], [place] [id number] Nurse Practitioner Family Medicine 08/11/22 Anna Pino DO [address] [place] [address] Referring Physician Neurology 05/31/23 documented as of this encounter
--- OUTSIDE RECORDS SUMMARY | 2024-08-31 06:52 | XMS_ITS | Clinical Summary ---
Author Organization [facility] Address [address] [place] [address] Care Team Providers Care Chief Sales Officer Name Role Phone Jolie Mohamud MD Primary Care Provider [phone] Rachele Mccallum MUSIC HISTORIAN Unavailable [phone] Anna Pino DO Unavailable [phone] Rachele Mccallum MUSIC HISTORIAN Unavailable [phone] Allergies Active Allergy Reactions Criticality Noted Date Comments Amoxicillin-Pot Clavulanate Unknown 10/29/19 22 Other Reaction(s): yeast infection Latex Rash Low 10/28/2021 Medications Multiple Vitamin (MULTIVITAMIN ADULT PO) Multivitamin Active levocetirizin e (Xyzal) 5 MG tabletIndicat ions:Postnasa l drip TAKE 1 TABLET BY MOUTH EVERY DAY IN THE EVENING FOR 90 DAYS 90 tablet 1 04/09/19 24 Active Boswellia-Glu cosamine-Vit D (Glucosamine Complex -Boswellia) tablet Take by mouth Daily 2 pills Active saccharomyces boulardii (Florastor) 250 MG capsule Take 250 mg by mouth in the morning and 250 mg before bedtime. Active omeprazole (PriLOSEC) [address] capsuleIndica tions:Rod 's esophagus without dysplasia TAKE 1 CAPSULE (40 MG) BY MOUTH EVERY 12 (TWELVE) HOURS 180 capsule 1 03/03/20 24 Active celecoxib (CeleBREX) 200 MG capsuleIndica tions:Spondyl osis without myelopathy or radiculopathy , lumbar region TAKE 1 CAPSULE BY MOUTH EVERY MORNING 30 capsule 1 07/25/19 25 Active mirabegron ER (Myrbetriq) 50 MG 24 hr tablet Take 50 mg by mouth Daily 06/27/19 25 Active Vitamin E (E-400) 268 MG (400 UNIT) capsule Take 268 capsules by mouth Daily Active sertraline (Zoloft) 50 MG tabletIndicat ions:Generali zed anxiety disorder Take 1 tablet (50 mg) by mouth Daily 30 tablet 07/25/19 25 Active busPIRone (Buspar) 10 MG tabletIndicat ions:Generali zed anxiety disorder,Recu rrent major depressive disorder, in partial remission Take 2 tablets (20 mg) by mouth in the morning and 2 tablets (20 mg) before bedtime. 360 tablet 3 08/18/19 25 Active LORazepam (Ativan) 0.5 MG tabletIndicat ions:Generali zed anxiety disorder Take 1 tablet (0.5 mg) by mouth Daily as needed for anxiety for up to 6 days 6 tablet 08/22/19 25 Active Tirzepatide-W eight Management (Zepbound) 15 MG/0.5ML solution auto-injector Indications:O besity (BMI 30-39.9) Inject 15 mg under the skin 1 (one) time per week 6 mL 08/30/19 25 Active busPIRone (Buspar) 10 MG tabletIndicat ions:Generali zed anxiety disorder,Recu rrent major depressive disorder, in partial remission Take 2 tablets (20 mg) by mouth in the morning and 2 tablets (20 mg) before bedtime. 360 tablet 3 11/12/19 24 025 Discontinued(R eorder) LORazepam (Ativan) 0.5 MG tabletIndicat ions:Generali zed anxiety disorder Take 1 tablet (0.5 mg) by mouth Daily as needed for anxiety for up to 6 days 6 tablet 12/09/19 24 025 Discontinued(R eorder) Tirzepatide-W eight Management (Zepbound) 15 MG/0.5ML solution auto-injector Indications:O besity (BMI 30-39.9) Inject 15 mg under the skin 1 (one) time per week 6 mL 06/06/19 25 025 Discontinued(R eorder) busPIRone (Buspar) 10 MG tabletIndicat ions:Generali zed anxiety disorder,Recu rrent major depressive disorder, in partial remission TAKE 2 TABLETS BY MOUTH IN THE MORNING AND 2 TABLETS BEFORE BEDTIME. 360 tablet 3 08/18/19 25 025 Discontinued Active Problems Problem Noted Date Diagnosed Date Arthritis of both knees 07/31/2022 Arthritis of lumbar spine 07/31/2022 Rod's esophagus 07/31/2022 Fatigue 07/31/2022 Gastroesophageal reflux disease without esophagi tis 07/31/2022 Generalized anxiety disorder 07/31/2022 Morbid (severe) obesity due to excess calories 0 07/31/2022 Obstructive sleep apnea 07/31/2022 Recurrent major depressive disorder, in partial remission 07/31/2022 Urge incontinence of urine 07/31/2022 Body mass index (BMI) 37.0-37.9, adult Mixed anxiety depressive disorder 02/14/2021 Simple obesity 02/14/2021 Recurrent major depressive disorder, in remissio n 05/16/2020 S/P laparoscopic cholecystectomy 04/06/2019 Ex-smoker 04/05/2019 Hyperbilirubinemia 04/05/2019 Adjustment disorder 10/31/2018 Stress incontinence (female) (male) 09/12/2018 Chronic pain 06/14/2018 Anxiety 05/05/2018 Stress incontinence of urine 01/28/2017 H/O: hysterectomy 03/09/2016 Resolved Problems Problem Noted Date Diagnosed Date Resolved Date Atopic dermatitis 07/31/2022 12/27/2023 Discharge from nipple 07/31/20222023 History of hysterectomy 07/31/202212/13 Increased prolactin level 07/31/2022 Other chronic pain 07/31/2022 4 Rectal bleeding 07/31/2022 12/27/2023 Situational stress 07/31/2022 4 Pain in limb 02/22/2020 12/27/2023 Transaminitis 04/05/2019 12/27/2023 Cholelithiasis, common bile duct 04/03/2019 12/27/2023 Class 2 obesity 09/12/2018 12/27/2023 Maxillary sinusitis 03/17/2018 10/14/20 24 Gastroesophageal reflux dise ase with esophagitis 08/16/2017 12/27/2023 Encounters Date Type Department Care Team Description 08/28/2024 6:30 PM EDT Office Visit [facility] [address] [facility] [place] [address] Rachele Mccallum NP Generalized anxiety disorder (Primary Dx); Obesity (BMI 30-39.9); Encounter for antibody response examination; Hair loss 08/28/2024 Bamboo flowsheet [facility] [address] [facility] [place] [address] Rachele Mccallum NP 08/28/2024 Travel 08/16/2024 Refill [facility] [address] [facility] [place] [address] Jolie Mohamud MD Generalized anxiety disorder 08/16/2024 Refill [facility] [address] [facility] [place] [address] Sabina Krueger NP Generalized anxiety disorder ; Recurrent major depressive disorder, in partial remission 08/16/2024 Refill [facility] [address] [facility] [place] [address] Sabina Krueger NP Generalized anxiety disorder ; Recurrent major depressive disorder, in partial remission 07/25/2024 Telephone [facility] [address] [facility] [place] [address] Rachele Mccallum NP 07/24/2024 5:30 PM EDT Office Visit [facility] [address] [facility] [place] [address] Rachele Mccallum NP Generalized anxiety disorder (Primary Dx); Obstructive sleep apnea; Obesity (BMI 30-39.9); Ear popping, left 07/24/2024 Travel 07/24/2024 Refill [facility] [address] [facility] [place] [address] Jolie Mohamud MD Spondylosis without myelopathy or radiculopathy, lumbar region 07/14/2024 Refill [facility] [address] [place] [address] DianeBambi, MUSIC HISTORIAN Hot flashes 06/19/2024 Refill [facility] [address] [place] [address] DeejayjeniferBambi burch, MUSIC HISTORIAN Hot flashes 06/19/2024 Refill [facility] [address] [place] [address] DianeBambi, MUSIC HISTORIAN Hot flashes 06/19/2024 Refill [facility] [address] [place] [address] Diane, Bambi, MUSIC HISTORIAN Hot flashes 06/15/2024 Refill [facility] [address] [place] [address] DianeBambi, MUSIC HISTORIAN Hot flashes from Last 3 Months Immunizations Immunization Administration Dates Next Due Influenza, High Dose Seasona l, Preservative Free 04/05/2019,04/04/2019 Influenza, injectable, MDCK, preservative free, quadrivalent 12/18/2020 Influenza, injectable, quadrivalent 01/27/2018 Influenza, injectable, quadr ivalent, preservative free 12/10/2022,12/29/2021,12/18/2020,2019,04/05/2019,01/27/2018 Influenza, seasonal, injecta ble, preservative free 12/23/2023 Influenza, seasonal, intrade rmal, preservative free 12/21/2014 Tdap 03/03/2016 Zoster, Recombinant 12/23/2023 Family History Medical History Relation Name Comments Arthritis Father Bo COPD Father Bo Diabetes Father Bo Early natural Father Bo Heart failure Father Bo Hypertension Father Bo Pulmonary embolism Father Bo Parkinsonism Maternal Grandfather Anxiety disorder Mother Nena Arthritis Mother Nena COPD Mother Nena Cancer Mother Nena Depression Mother Nena Diabetes Mother Nena Parkinsonism Mother Nena Stroke Mother Nena triple negative breast cancer Mother Nena Early natural Paternal Grandfather Ray Relation Name Status Comments Daughter Alive 2 daughters Father Bo Maternal Grandfather Mother Nena Paternal Grandfather Ray Son Social History Tobacco Use Types Packs/Day Years Used Date Smoking Tobacco: Former Cigarettes 0.5 26.5 0 09/13/1987 - 03/29/2014 Smokeless Tobacco: Never Tobacco Cessation:Counseling Given: Not Answered Comments:Last smoked: 5-10 years. Moderate cigarette smoker (10-19 cigs/day) Alcohol Use [...] How often do you attend chur or yarsani services? More than 4 times per year 05/23/2023 Do you belong to any clubs o r organizations such as yarsani groups, unions, fraternal or athletic groups, or [...] Patient Health Questionnaire-2 Score 0 07/24/2024 [facility] - Occupational [...] place to sleep or slept in a intermediate (including now)? No 05/23/2023 Comments Unknown Sex and Gender Information Value Date Recorded Sex Assigned at Not on file Legal Sex Female 6:47 PM EDT Gender Identity Not on file Sexual Orientation Not on file Last Filed Vital Signs Vital Sign Reading Time Taken Comments Blood Pressure 118/70 08/28/2024 4:39 PM EDT Pulse 76 08/28/2024 4:39 PM EDT Temperature 37.5 C (99.5 F) 05/24/2024 9:30 AM EDT Respiratory Rate 18 08/28/2024 4:39 PM EDT Oxygen Saturation 98% 08/28/2024 4:39 PM EDT Inhaled Oxygen Concentration - - Weight 84.4 kg (186 lb) 08/28/2024 4:39 PM EDT Height 165.1 cm (5' 5 ) 08/28/2024 4:39 PM EDT Body Mass Index 30.95 08/28/2024 4:39 PM EDT Plan of Treatment Health Maintenance Due Date Last Done Comments CT Colonography 1972 Colonoscopy 1972 FIT 1972 FOBT 1972 Sigmoidoscopy 1972 Mammogram 12/28/2024 12/29/2023, 12/13, 10/23/2022, Additional history exists Colorectal Cancer Screening 10/24/2025 FIT-DNA 10/24/2025 10/24/2022 Influenza Vaccine Completed 12/23/2023, , 12/29/2021, Additional history exists Goals Goal Patient Goal Type Associated Problems Recent Progress Patient-Stated? Author Help patient manage antidepressant medication Care Plan Patient on antidepressant monitoring plan Rachele Lovelace NP Procedures Procedure Name Priority Date/Time Associated Diagnosis Comments BI MAMMOGRAM DIAGNOSTIC TOMOSYNTHESIS RIGHT Routine 12/29/2023 2:22 PM EDT Abnormal mammogram of right breast LAB COLOGUARD COLON CANCER SCREEN Routine 10/24/2022 1:23 PM EDT Screening for colon cancer from Last 3 Months or Most Recently Relevant to Health Maintenance Results * Right diagnostic mammogram with tomosynthesis (12/29/2023 2:22 PM EDT) Anatomical Region Laterality Modality Breast Right Mammography 12/29/2023 5:06 PM EDT Impressions 12/29/2023 5:16 PM EDT Impression: No convincing evidence of neoplasm. Previously noted fairly round 7 mm density in the right breast is again identified, likely representing a cyst when correlated with the ultrasound exam. BI-RADS 2 ELECTRONICALLY SIGNED BY: Jarek Treadwell M.D. Narrative 12/29/2023 5:16 PM EDT Examination: BI MAMMOGRAM DIAGNOSTIC TOMOSYNTHESIS RIGHT Clinical History: abnormal mammogram of right breast Comparison: Screening mammogram study of the breasts dated 12/27/2023, ultrasound study of the right breast dated 12/29/2023. TECHNIQUE: Diagnostic digital mammogram study of the right breast was performed. Coned-down compression views at the mid/upper/outer level of the right breast were obtained to include area of interest, true lateral view of the right breast was also obtained. Findings: Previously noted approximately 7 mm fairly round density in the mid/upper/outer portion of the right breast is again identified though not as discretely seen as the previous study. Ultrasound study performed today does demonstrate what appears to be a cyst at the 10 o'clock position, felt to correlate the mammographic density. No convincing evidence of neoplasm when correlating the studies. Axillary lymph nodes are noted. Breast tissue is heterogeneously dense bilaterally. Procedure Note Jarek Treadwell MD - 12/29/2023 Examination: BI MAMMOGRAM DIAGNOSTIC TOMOSYNTHESIS RIGHT Clinical History: abnormal mammogram of right breast Comparison: Screening mammogram study of the breasts dated 12/27/2023,ultrasound study of the right breast dated 12/29/2023. TECHNIQUE: Diagnostic digital mammogram study of the right breast wasperformed. Coned-down compression views at the mid/upper/outer level ofthe right breast were obtained to include area of interest, true lateralview of the right breast was also obtained. Findings: Previously noted approximately 7 mm fairly round density in themid/upper/outer portion of the right breast is again identified though notas discretely seen as the previous study. Ultrasound study performed todaydoes demonstrate what appears to be a cyst at the 10 o'clock position,felt to correlate the mammographic density. No convincing evidence ofneoplasm when correlating the studies. Axillary lymph nodes are noted. Breast tissue is heterogeneously dense bilaterally. IMPRESSION: Impression: No convincing evidence of neoplasm. Previously noted fairly round 7 mm density in the right breast is againidentified, likely representing a cyst when correlated with the ultrasoundexam. BI-RADS 2 ELECTRONICALLY SIGNED BY: Jarek Treadwell M.D. us Sabina Krueger NP IMG BI PROCEDURES Final Result * Cologuard?? colon cancer screening (10/24/2022 1:23 PM EDT) NONINV COLON CA DNA+OCC BLD SCRN STL-IMP Negative Negative 11/04/2022 1:34 PM EDT [employer] (CLIA #:[id number]) Comment: NEGATIVE TEST RESULT. A negative Cologuard result indicates a low likelihood that a colorectal cancer (CRC) or advanced adenoma (adenomatous polyps with more advanced pre-malignant features) is present. The chance that a person with a negative Cologuard test has a colorectal cancer is less than 1 in 1500 (negative predictive value >99.9%) or has an advanced adenoma is less than 5.3% (negative predictive value 94.7%). These data are based on a prospective cross-sectional study of 10,000 individuals at average risk for colorectal cancer who were screened with both Cologuard and colonoscopy. (Boyd Garcia et al, N Engl J Med 2014;370(14):7160-9032) The normal value (reference range) for this assay is negative. COLOGUARD RE-SCREENING RECOMMENDATION: Periodic colorectal cancer screening is an important part of preventive healthcare for asymptomatic individuals at average risk for colorectal cancer. Following a negative Cologuard result, the [place] [employer] Society and U.S. Multi-Society Task Force screening guidelines recommend a Cologuard re-screening interval of 3 years. References: [place] [employer] Guideline for Colorectal Cancer Screening: https://www.cancer.org/cancer/qwrsp-vgthaz-wesmtu/ukeksmixt-lumlwewjg-uqsttba/ac s-rec ommendations.html.; Jamari ANDERSON, Felicita MCINTOSH, Arun BoschK, Colorectal Cancer Screening: Recommendations for Physicians and Patients from the U.S. Multi-Society Task Force on Colorectal Cancer Screening , Am J Gastroenterology 2017; 112:4080-0122. TEST DESCRIPTION: Composite algorithmic analysis of stool DNA-biomarkers with hemoglobin immunoassay. Quantitative values of individual biomarkers are not reportable and are not associated with individual biomarker result reference ranges. Cologuard is intended for colorectal cancer screening of adults of either sex, 45 years or older, who are at average-risk for colorectal cancer (CRC). Cologuard has been approved for use by the U.S. FDA. The performance of Cologuard was established in a cross sectional study of average-risk adults aged 50-84. Cologuard performance in patients ages 45 to 49 years was estimated by sub-group analysis of near-age groups. Colonoscopies performed for a positive result may find as the most clinically significant lesion: colorectal cancer [4.0%], advanced adenoma (including sessile serrated polyps greater than or equal to 1cm diameter) [20%] or non- advanced adenoma [31%]; or no colorectal neoplasia [45%]. These estimates are derived from a prospective cross-sectional screening study of 10,000 individuals at average risk for colorectal cancer who were screened with both Cologuard and colonoscopy. (Boyd Garcia et al, N Engl J Med 2014;370(14):6778-1696.) Cologuard may produce a false negative or false positive result (no colorectal cancer or precancerous polyp present at colonoscopy follow up). A negative Cologuard test result does not guarantee the absence of CRC or advanced adenoma (pre-cancer). The current Cologuard screening interval is every 3 years. ([place] [employer] and U.S. Multi-Society Task Force). Cologuard performance data in a 10,000 patient pivotal study using colonoscopy as the reference method can be accessed at the following location: www.[employer]in[employer]ives.com/results. Additional description of the Cologuard test process, warnings and precautions can be found at www.[employer].com. Stool specimen (specimen) 10/24/2022 1:23 PM EDT 10/27/2022 10:39 PM EDT Rachele Mccallum MUSIC HISTORIAN LAB MOLECULAR DIAGNOSTI CS ORDERABLES Final Result .[employer] (CLIA #:[id number]) [address] [address], [employer] (CLIA #:[id number]) [address] [id number] from Last 3 Months or Most Recently Relevant to Health Maintenance Additional Health Concerns Active Problems Noted Date Diagnosed Date Patient on antidepressant monitoring plan 2024 Insurance [employer] Care Teams Chief Sales Officer Relationship Specialty Start Date End Date Jolie Mohamud MD [address] [place], [place] [id number] PCP - General Family Medicine 08/11/22 Rachele Mccallum NP [address] [place], [place] [id number] [facility] Rachele Mccallum NP [address] [place], [place] [phone] Nurse Practitioner Family Medicine 08/11/22 Anna Pino DO [address] [place] [address] Referring Physician Neurology 05/31/23
--- OUTSIDE RECORDS SUMMARY | 2024-08-31 06:52 | XMS_ITS | Clinical Summary ---
Author Organization [employer] Address [id number] [address] [place] [address] Care Team Providers Care [address] Vendor Name Role Phone Jolie Mohamud MD Primary Care Provider Allergies Active Allergy Reactions Criticality Noted Date Comments Amoxicillin-Pot Clavulanate Other (See Comments) 07/27/2023 Causes yeast infection Latex Rash Low 04/06/2019 Medications oxybutynin XL (DITROPAN-XL) 10 mg 24 hr tablet Take 1 tablet (10 mg total) by mouth in the morning. 1 06/02/2018 Active GREEN TEA EXTRACT ORAL Take by mouth. Active omeprazole (PriLOSEC) 40 mg capsule Take 1 capsule (40 mg total) by mouth 2 (two) times a day. 40 capsule 2 07/04/2018 Active DULoxetine (CYMBALTA) 60 mg capsule Take 1 capsule (60 mg total) by mouth in the morning. Active busPIRone (BUSPAR) 10 mg tablet Take 1 tablet (10 mg total) by mouth in the morning and 1 tablet (10 mg total) before bedtime. Active levocetirizine (XYZAL) 5 mg tablet Take 1 tablet (5 mg total) by mouth every evening. Active celecoxib (CeleBREX) 100 mg capsule Take 1 capsule (100 mg total) by mouth in the morning and 1 capsule (100 mg total) before bedtime. Active Active Problems Problem Noted Date Diagnosed Date GERD (gastroesophageal reflux disease) 9 Family History Medical History Relation Name Comments Esophageal cancer Maternal Uncle Breast cancer Mother triple negativ e Parkinsonism Mother Cervical cancer Paternal Grandmother Pancreatic cancer Paternal Uncle 1 Stomach cancer Paternal Uncle 2 Breast cancer Paternal great-grandmother Relation Name Status Comments Father Maternal Uncle Mother Alive Paternal Grandmother Paternal Uncle 1 Paternal Uncle 2 Alive Paternal great-grandmother Social History Tobacco Use Types Packs/Day Years Used Date Smoking Tobacco: Former Smokeless Tobacco: Never Tobacco Cessation:Counseling Given: Not Answered Comments:quit 9 years ago Alcohol Use Standard Drinks/Week Comments [...] Sign Reading Time Taken Comments Blood Pressure 125/77 01/06/2020 4:28 AM EDT Pulse 75 01/06/2020 4:28 AM EDT Temperature 36.6 C (97.8 F) 01/06/2020 4:28 AM EDT Respiratory Rate 18 01/06/2020 4:28 AM EDT Oxygen Saturation 98% 01/06/2020 4:28 AM EDT Inhaled Oxygen Concentration - - Weight 113.4 kg (250 lb) 07/27/2023 9:36 AM EDT Height 167.6 cm (5' 6 ) 07/27/2023 9:36 AM EDT Body Mass Index 40.35 07/27/2023 9:36 AM EDT Plan of Treatment Health Maintenance Due Date Last Done Comments Depression Screening 1984 COVID-19 Vaccine ( - 2023-2 5 season) 2023 10/09/2020, 09/11/2020 Zoster (Shingles) Vaccine (2 of 2) 02/17/2024 12/23/2023 Adult BMI Screening 07/26/2024 07/27/2023 Tobacco Screening 08/10/2024 08/11/2023 Influenza Vaccine 11/13/2024 12/23/2023, , 12/29/2021, Additional history exists DTaP,Tdap and Td Vaccines (2 - Td or Tdap) 03/03/2026 03/03/2016 Medical Devices Not on file Insurance [facility] Care Teams [address] Vendor Relationship Specialty Start Date End Date Jolie Mohamud MD [address] [place] [address] PCP - General Family Medicine 06/06/18
--- OUTSIDE RECORDS SUMMARY | 2024-08-31 06:52 | XMS_ITS | Encounter Summary ---
Author Organization [facility] Address [address] [place] [address] Care Team Providers Care Public Health Officer Name Role Phone Jolie Mohamud MD Primary Care Provider [phone] Rachele Mccallum MACHINE OPERATOR REPLANTER Unavailable [phone] Anna Pino DO Unavailable [phone] Rachele Mccallum MACHINE OPERATOR REPLANTER Unavailable Encounter Details Date Type Department Care Team (Late st Contact Info) Description 04/30/2023 Abstract [facility] [address] [place] [address] Jolie Mohamud MD [address] [place] [address] Social History Tobacco Use Types [...] on filedocumented in this encounter Care Teams Public Health Officer Relationship Specialty Start Date End Date Jolie Mohamud MD [address] [place], [place] [id number] PCP - General Family Medicine 08/11/22 Rachele Mccallum NP [address] [facility] [place] [id number] PCP - [facility] 06/13/24 Rachele Mccallum NP [address] [place], [place] [id number] Nurse Practitioner Family Medicine 08/11/22 Anna Pino DO [address] [place] [address] Referring Physician Neurology 05/31/23 documented as of this encounter
--- OUTSIDE RECORDS SUMMARY | 2024-08-31 06:52 | XMS_ITS | Encounter Summary ---
Author Organization [facility] Address [address] [place] [address] Care Team Providers Care Ortho/Prosthetic Aide Name Role Phone Jolie Mohamud MD Primary Care Provider Rachele Mccallum COMPLIANCE MONITOR Unavailable [phone] Anna Pino DO Unavailable [phone] Rachele Mccallum COMPLIANCE MONITOR Unavailable Encounter Details Date Type Department Care Team (Late st Contact Info) Description 11/30/2022 Abstract [facility] [address] [place] [address] Jolie Mohamud MD [address] [place] [address] Social History Tobacco Use Types [...] on filedocumented in this encounter Care Teams Ortho/Prosthetic Aide Relationship Specialty Start Date End Date Jolie Mohamud MD [address] [place], [place] [id number] PCP - General Family Medicine 08/11/22 Rachele Mccallum NP [address] [facility] [place], [place] [id number] PCP - [facility] 06/13/24 Rachele Mccallum NP [address] [place], [place] [address] Nurse Practitioner Family Medicine 08/11/22 Anna Pino DO [address] [place] [address] Referring Physician Neurology 05/31/23 documented as of this encounter
--- OUTSIDE RECORDS SUMMARY | 2024-08-31 06:52 | XMS_ITS | Encounter Summary ---
Author Organization [facility] Address [address] [place] [address] Care Team Providers Care Property Clerk Name Role Phone Jolie Mohamud MD Primary Care Provider [phone] Rachele Mccallum OFFICE ASSOCIATE Unavailable [phone] Anna Pino DO Unavailable [phone] Rachele garcia OFFICE ASSOCIATE Unavailable Reason for Visit * Reason Comments Med Refill Encounter Details Date Type Department Care Team (Late st Contact Info) Description 08/16/2024 Refill [facility] [address] [place] [address] Sabina Krueger OFFICE ASSOCIATE [address] [place], [place] [id number] Generalized anxiety disorder ; Recurrent major depressive [...] any clubs o r organizations such as voodoo groups, unions, fraternal or athletic groups, or [...] Patient Health Questionnaire-2 Score 0 07/24/2024 [facility] - Occupational Stress Questionnaire Answer [...] place to sleep or slept in a custodial (including now)? No 05/23/2023 Comments Unknown Sex [...] documented as of this encounter Care Teams Property Clerk Relationship Specialty Start Date End Date Jolie Mohamud MD [address] [place] [address] PCP - General Family Medicine 08/11/22 Rachele Mccallum NP [address] [facility] [place] [address] PCP - [place] [employer] 06/13/24 Rachele Mccallum NP [address] [facility] [place] [address] Nurse Practitioner Family Medicine 08/11/22 Anna Pino DO [address] [place] [id number] Referring Physician Neurology 05/31/23 documented as of this encounter
--- OUTSIDE RECORDS SUMMARY | 2024-08-31 06:52 | XMS_ITS | Encounter Summary ---
Author Organization [facility] Address [address] [place] [address] Care Team Providers Care Carbon Coater Machine Operator Name Role Phone Jolie Mohamud MD Primary Care Provider [phone] Rachele Mccallum PLANNING LEAD Unavailable [phone] Anna Pino DO Unavailable [phone] Rachele cMcallum PLANNING LEAD Unavailable [phone] Encounter Details Date Type Department Care Team (Late st Contact Info) Description 12/05/2023 Abstract [facility] [address] [place] [address] Bambi Contreras NP [address] [place] [address] Social History Tobacco Use Types [...] often do you attend chur ch or yazdanism services? More than 4 times per year 05/23/2023 Do you belong to any clubs o r organizations such as evangelical groups, unions, fraternal or athletic groups, or [...] Date Recorded Patient Health Questionnaire-2 Score 0 12/09/2023 [facility] - Occupational Stress Questionnaire Answer Date [...] filedocumented in this encounter Additional Health Concerns Assessment Noted Time PHQ-9 Depression Total Score: 6 11/16/19 24 8:00 AM EDT documented as of this encounter Care Teams Carbon Coater Machine Operator Relationship Specialty Start Date End Date Jolie Mohamud MD [address] [place], [place] [id number] PCP - General Family Medicine 08/11/22 Rachele Mccallum NP [address] [place] [address] PCP - [place] [facility] 06/13/24 Rachele Mccallum NP [address] [place] [address] Nurse Practitioner Family Medicine 08/11/22 Anna Pino DO [address] [place] [address] Referring Physician Neurology 05/31/23 documented as of this encounter
--- OUTSIDE RECORDS SUMMARY | 2024-08-31 06:52 | XMS_ITS | Encounter Summary ---
Author Organization [facility] Address [address] [place] [address] Care Team Providers Care Research Environmental Engineer Name Role Phone Jolie Mohamud MD Primary Care Provider [phone] Rachele Mccallum CADMIUM BURNER Unavailable [phone] Anna Pino DO Unavailable [phone] Rachele Mccallum CADMIUM BURNER Unavailable [phone] Encounter Details Date Type Department Care Team (Late st Contact Info) Description 05/13/2023 Orders Only [facility] [address] [place] [address] Rachele Mccallum CADMIUM BURNER [address] [place], [place] [address] Social History Tobacco Use Types Packs/Day Years [...] on filedocumented in this encounter Care Teams Research Environmental Engineer Relationship Specialty Start Date End Date Jolie Mohamud MD [address] [place], [place] [id number] PCP - General Family Medicine 08/11/22 Rachele Mccallum NP [address] [facility], [place] [address] PCP - [facility] 06/13/24 Rachele Mccallum NP [address] [facility], [place] [address] Nurse Practitioner Family Medicine 08/11/22 Anna Pino DO [address] [place] [address] Referring Physician Neurology 05/31/23 documented as of this encounter
--- OUTSIDE RECORDS SUMMARY | 2024-08-31 06:52 | XMS_ITS | Encounter Summary ---
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) Social History Tobacco Use Types Packs/Day Years Used Date Smoking Tobacco: Former Cigarettes 1 2013 Smokeless Tobacco: Never Comments:Last smoked: 5-10 [...] as of this encounter Visit Diagnoses Diagnosis 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
--- OUTSIDE RECORDS SUMMARY | 2024-08-31 06:52 | XMS_ITS | Patient Health Record ---
Author Organization [facility] Address [address] [place] [address] Care Team Providers Care Product Lead Name Role Phone None, Unknown or Primary Care Provider Unavailab leora BrasherRajat dougherty Unavailable [phone] Ema Hanson Unavailable [phone] [place] CityKelvin varner Unavailable [phone] Allergies Allergen (clinical drug ingredient) Drug/Non Drug Allergy documented on EMR Reaction Allergy Type Onset Date Status amoxicillin / clavulanate Augmentin causes yeast infection Drug Allergy Active Reason For Referral No Information Medications Medication SIG (Take, Route, Frequency, Duration) Notes Start Date End Date Status Mirabegron ER 50 MG 1 tablet Orally Once a day for 30 days 06/26/2024 Active cloNIDine HCl 0.1 MG Oral for 30 Days Active Multivitamin Active Omeprazole 05/08/2024 Active oxyBUTYnin Chloride ER 10 MG TAKE 1 TABLET (10 MG) BY MOUTH DAILY DO NOT CRUSH, CHEW, OR SPLIT. Oral for 90 Days Not-Taking Boswellia Active busPIRone HCl 10 MG TAKE 2 TABLETS BY MO UTH IN THE MORNING AND 2 TABLETS BEFORE BEDTIME. Oral for 90 Days Active CeleBREX Active Probiotic Active Wellbutrin 05/08/2024 Active Zepbound Active Lorraine 05/08/2024 Active Social History Tobacco [...] monthly (1 point) Points 1 Interpretation Negative Problems Problem Type SNOMED Code ICD Code Onset Dates Problem Status W/U Status Risk Notes Problem Unspecified urinary incontinence (R32) Active confirmed Vital Signs Height 66 in 06/26/2024 Weight 195 lbs 06/26/2024 BMI 31.47 kg/m2 06/26/2024 Procedures Procedure Date Ordered Date Performed Result Body Sit e Urodynamics 05/08/2024 05/08/2024 N/A Cystoscopy in Office 05/08/2024 05/08/2024 N/A Encounters Encounter Location Date Provider Diagnosis [facility]rology [facility] [address] [place] [address] 06/26/2024 Rajat Lewis Unspecified urinary incontinence R32 [address] [place] [address] 05/08/2024 Rajat Lewis Unspecified urinary incontinence R32 [address] [place] [address] 06/20/2024 Ema Hanson Unspecified urinary incontinence R32 Assessments Encounter Date Diagnosis (ICD Code) Assessment Notes Treatment Notes Treatment Clinical Notes Section Notes 05/08/2024 Unspecified urinary incontinence (ICD-10 - R32) timed and double void pelvic floor therapy urodynamics cysto gemtesa trial if not better, refer to [facility] for pubovag sling vs urethral bulking agent 06/20/2024 Unspecified urinary incontinence (ICD-10 - R32) [...] be botox to increase her bladder capacity. 06/26/2024 Unspecified urinary incontinence (ICD-10 - R32) try myrbetriq and timed void if not better do botox first may eventually need pubovag sling Plan Of Treatment No Information Insurance Providers Payer Name Payer Address Payer Phone Subscriber Number Group Number Insured Name Patient Relationship to Insured Coverage Start Date Coverage End Date [address] [place] [address] [id number] Lauren Hagan Self - patient is the insured Medical (General) History Medical History History ICD Code arthritis depression Unspecified urinary incontinence R32 Surgical History Surgery Date(Month/Year) hysterectomy cholecystectomy ERCP bladder sling 2019 appendectomy tubal ligation
--- OUTSIDE RECORDS SUMMARY | 2024-08-31 06:52 | XMS_ITS | Encounter Summary ---
Author Organization [facility] Address [address] [place] [address] Care Team Providers Care Protective Clothing Issuer Name Role Phone Jolie Mohamud MD Primary Care Provider [phone] Rachele Mccallum CUSTODIAL LABORER Unavailable [phone] Anna Pino DO Unavailable [phone] Rachele Mccallum CUSTODIAL LABORER Unavailable [phone] Reason for Visit * Reason Onset Date Comments Med Refill 05/06/2023 Encounter Details Date Type Department Care Team (Late st Contact Info) Description 05/06/2023 Telephone [facility] [address] [place] [address] Jolie Mohamud MD [address] [place] [address] Med Refill Social History Tobacco Use Types Packs/Day Years [...] encounter Miscellaneous Notes * Telephone Encounter - Rachele Mccallum NP - 05/13/2023 10:10 AM EST sent * Telephone Encounter - Rachele Mccallum NP - 05/10/2023 7:10 PM EST I don't have oxybutynin in her med list. * Telephone Encounter - Rachele Mccallum NP - 05/10/2023 7:09 PM ESTFrom: Lauren Hagan To: Office of Dr. Jolie Mohamud Sent: 05/06/2023 2:00 PM EST Subject: Medication Renewal Request Refills have been requested for the following medications: Other - Oxybutnin Preferred pharmacy: [id number] - [place], [place] - [address] Delivery method: Pickup documented in this encounter Plan of Treatment Not on file documented as of this encounter Visit Diagnoses Diagnosis Stress incontinence of urine- Primary documented in this encounter Care Teams Protective Clothing Issuer Relationship Specialty Start Date End Date Jolie Mohamud MD [address] [place] [address] PCP - General Family Medicine 08/11/22 Rachele Mccallum NP [address] [place] [address] PCP - [place] [facility] 06/13/24 Rachele Mccallum NP [address] [facility] [place] [address] Nurse Practitioner Family Medicine 08/11/22 Anna Pino DO [address] [place] [address] Referring Physician Neurology 05/31/23 documented as of this encounter
[2024-09-01 05:07] LABS: Hep B Surface Ab Non Reactive (.); Measles Antibodies, IgG 48.5 AU/mL (Immune >16.4); Mumps Abs, IgG <9.0 AU/mL (Immune >10.9); Rubella Antibodies, IgG 1.55 index (Immune >0.99); Varicella-Zoster V Ab, IgG Reactive (Non Reactive)
== END 2024-08-31 06:46 | disposition home or self-care (01) ==
LOC: LAB 06:50
PROVIDERS: PCP Nurse Practitioner Family; Visit Provider Nurse Practitioner Family
DX: Z01.84 Encounter for antibody response examination (principal)
CPT/HCPCS: 36415; 86706; 86735; 86762; 86765; 86787

== ENCOUNTER 2024-10-16 06:32 | Outpatient (OUT) | payer BC, SELFPAY ==
[2024-10-17 08:08] LABS: Measles Antibodies, IgG 186.0 AU/mL (Immune >16.4); Mumps Abs, IgG 111.0 AU/mL (Immune >10.9); Rubella Antibodies, IgG 4.22 index (Immune >0.99)
== END 2024-10-16 06:33 | disposition home or self-care (01) ==
LOC: LAB 06:34
PROVIDERS: PCP Family Medicine; Visit Provider Nurse Practitioner Family
DX: Z01.84 Encounter for antibody response examination (principal)
CPT/HCPCS: 36415; 86317; 86706; 86735; 86762; 86765

== ENCOUNTER 2024-11-18 06:55 | Outpatient (OUT) | payer BC, SELFPAY ==
--- OUTSIDE RECORDS SUMMARY | 2024-05-29 06:00 | XMS_ITS ---
Author Organization The [facility] in [place] Address [address] [place] [address] Care Team Providers Care Belt Glass Sander Name Role Phone None, Unknown or Primary Care Provider Unavailab Rajat Contreras [phone] Encounters Encounter Location Date Provider Diagnosis Urology [address] [place] [address] 05/29/2024 Rajat Lewis Plan Of Treatment No Information Progress Notes * BENTLEYTkAneudyOB:[birth year] (54 yo F)Acc No.[id number]:05/29/2024 UNLOCKED PROGRESS NOTE 0 Patient: Lauren CONTRERAS Provider: Ming Lewis MD :1970 A ge:54 Y S ex:Female Date:05/29/2024 Address:[address] [place], [place] [address] Pcp:Unknown or None Subjective: * Chief Complaints: * * Medical History: Objective: * Vitals: Assessment: Plan: * Treatment: * * Electronic signature of Wojciech Lewis MD, [id number] on 11/18/2024 at 07:00 AM EDT Sign off status: Pending Visit Status: R /S (Rescheduled) * Provider: Ming Lewis MD Date: 0 05/29/2024 Generated for Printi ng/Faxing/eTransmitting on: 0 11/18/2024 07:00 AM EDT
--- OUTSIDE RECORDS SUMMARY | 2024-06-20 04:40 | XMS_ITS ---
Author Organization The [facility] in [place] Address [address] [place] [address] Care Team Providers Care Safety Equipment Tester Name Role Phone None, Unknown or Primary Care Provider Unavailab Ema Barksdale Unavailable [phone] Allergies Allergen (clinical drug ingredient) Drug/Non Drug Allergy documented on EMR Reaction Allergy Type Onset Date Status amoxicillin / clavulanate Augmentin causes yeast infection Drug Allergy Active REASON FOR VISIT gave patient urod packet kp Medications Medication SIG (Take, Route, Frequency, Duration) Notes Start Date End Date Status cloNIDine HCl 0.1 MG Oral for 30 Days Active Boswellia Active Lorraine 05/08/2024 Active CeleBREX Active busPIRone HCl 10 MG TAKE 2 TABLETS BY MOUTH IN THE MORNING AND 2 TABLETS BEFORE BEDTIME. Oral for 90 Days Active Gemtesa 75 MG 1 tablet Orally Once a day for 30 days Lot: [id number] Exp: 2026dec 18 boxes 05/08/2024 Not-Taking Probiotic Active oxyBUTYnin Chloride ER 10 MG TAKE 1 TABLET (10 MG) BY MOUTH DAILY DO NOT CRUSH, CHEW, OR SPLIT. Oral for 90 Days Active Zepbound Active Wellbutrin 05/08/2024 Active Omeprazole 05/08/2024 Active Multivitamin Active Social History Tobacco Use: Social History Observation Description Date Details (start date - stop date) Former Smoker NA - NA Tobacco Control (Standard) Question Answer Notes Tobacco use: Former smoker AUDIT-C (Standard) Question Answer Notes Did you have a drink contain ing alcohol in the past year? Yes How often did you have a dri nk containing alcohol in the past year? Never (0 point) How many drinks did you have on a typical day when you were drinking in the past year? 1 or 2 drinks (0 point) How often did you have six o r more drinks on one occasion in the past year? Less than monthly (1 point) Points 1 Interpretation Negative Vital Signs Weight 197.4 lbs 06/20/2024 Height 66 in 06/20/2024 BMI 31.86 kg/m2 06/20/2024 Encounters Encounter Location Date Provider Diagnosis Urology [address] [place] [address] 06/20/2024 Ema Hanson Unspecified urinary incontinence R32 Assessments Encounter Date Diagnosis (ICD Code) Assessment Notes Treatment Notes Treatment Clinical Notes Section Notes 06/20/2024 Unspecified urinary incontinence (ICD-10 - R32) Urodynamics Study: Uroflow: Pt voided: ~ 90 ml Max flow: Not caught on sensor due to low volume PVR: 15 ml Cystometerogram: First sensation: 31 ml First desire: 72 ml Strong desire: 255 ml Capacity: 288 ml Leaks?: Stress or Urge? no, pt did feel small drip, but not detected on sensor Uninhibited contractions? No Pt voided: 276 ml Max flow: 30 ml/sec Max Pdet: 107 cm H2O PVR: 13 ml Obstruction?: unobstructed to equivocal Interpretation: small bladder capacity, pt indicated drip with cough she took 6 wks gemtesa samples without improvement. Now back on oxybutynin. she did not notice any worsening when she stopped oxybutyin and started Gemtesa. She will stop Oxybutynin now and report to Dr Lewis next week if her frequency or urgency got worse. discussed that another option may be botox to increase her bladder capacity. Plan Of Treatment Treatment Notes Assessment Notes Unspecified urinary incontinence Urodynamics Study: Uroflow: Pt voided: ~ 90 ml Max flow: Not caught on sensor due to low volume PVR: 15 ml Cystometerogram: First sensation: 31 ml First desire: 72 ml Strong desire: 255 ml Capacity: 288 ml Leaks?: Stress or Urge? no, pt did feel small drip, but not detected on sensor Uninhibited contractions? No Pt voided: 276 ml Max flow: 30 ml/sec Max Pdet: 107 cm H2O PVR: 13 ml Obstruction?: unobstructed to equivocal Interpretation: small bladder capacity, pt indicated drip with cough she took 6 wks gemtesa samples without improvement. Now back on oxybutynin. she did not notice any worsening when she stopped oxybutyin and started Gemtesa. She will stop Oxybutynin now and report to Dr Lweis next week if her frequency or urgency got worse. discussed that another option may be botox to increase her bladder capacity. Next Appt Details Follow Up: 06/26/24 Dr Lewis/azalea ystoscopy, Reason: Progress Notes * Tk HAGANAneudyOB:[birth year] (54 yo F)Acc No.[id number]:06/20/2024 Patient: Lauren CONTRERAS Provider: UDAY Faust :1970 A ge:54 Y S ex:Female Date:06/20/2024 Address:[address] [place], [place] [address] Pcp:Unknown or None Check In:08:38 AM ESTCheck O ut:09:58 AM EST Subjective: * Chief Complaints: * G ave patient urod packet kp * HPI: U rology General: 06/20/24 URO/Risa pt did feel small leak with cough and valsalva, but it was so small not detected by sensor. she has low bladder capacity she has been on Oxybutynin since before sling placement in 2019 failed on gemtesa for 6 wks will stop oxybutynin now and see Dr. Lewis next week to report how she did. discussed possible 3 line options: botox/interstim f/u with cystoscopy 05/08/24 Dr. Lewis New patient OV Note: here for urinary incontinence. had sling in 2019 by another urologist. now has intermittent leaking. no dysuria, no hematuria. no pain good stream, feels that she empties has been on oxybutinin and that helped with some of the urgency. * ROS: G eneral/Constitutional: Fever d enies. W eight loss d enies. F atigue or Weakness d enies. G enitourinary: Incontinence a dmits, must wear protective pads. F requent urination a dmits. P ainful urination d enies. B lood in Urine d enies. * Active Problem List R32 Unspecified urinary incontinence Modified On:05/08/2024W/U Status:confirmed * Medical History: * Surgical History: a ppendectomy tubal ligation hysterectomy cholecystectomy ERCP bladder sling 2018 * Hospitalization/Major Diagno stic Procedure: * Family History: M other: breast cancer- triple negative breast. * Social History: T obacco Use: T obacco Control (Standard) T obacco use: F ormer smoker D rug/Alcohol: A ISI-C (Standard) D id you have a drink containing alcohol in the past year? Y es H ow often did you have a drink containing alcohol in the past year? N ever (0 point) H ow many drinks did you have on a typical day when you were drinking in the past year? 1 or 2 drinks (0 point) H ow often did you have six or more drinks on one occasion in the past year? L ess than monthly (1 point) P oints 1 I nterpretation N egative D rugs/Alcohol: C affeine I ntake: 1 -2 cups per day Do you drink alcohol?: 2 per week. * Medications: T akingAllegra Boswellia busPIRone HCl 10 MG Tablet TAKE 2 TABLETS BY MOUTH IN THE MORNING AND 2 TABLETS BEFORE BEDTIME. Oral CeleBREX cloNIDine HCl 0.1 MG Tablet Oral Multivitamin Omeprazole oxyBUTYnin Chloride ER 10 MG Tablet Extended Release 24 Hour TAKE 1 TABLET (10 MG) BY MOUTH DAILY DO NOT CRUSH, CHEW, OR SPLIT. Oral Probiotic Wellbutrin(buPROPion HCl ER (XL)) Zepbound Taking Lorraine Taking Boswellia Taking busPIRone HCl 10 MG Tablet TAKE 2 TABLETS BY MOUTH IN THE MORNING AND 2 TABLETS BEFORE BEDTIME. Oral Taking CeleBREX Taking cloNIDine HCl 0.1 MG Tablet Oral Taking Multivitamin Taking Omeprazole Taking oxyBUTYnin Chloride ER 10 MG Tablet Extended Release 24 Hour TAKE 1 TABLET (10 MG) BY MOUTH DAILY DO NOT CRUSH, CHEW, OR SPLIT. Oral Taking Probiotic Taking Wellbutrin(buPROPion HCl ER (XL)) Taking Zepbound Not-Taking/PRNGemtesa(Vibegron) 75 MG Tablet 1 tablet Orally Once a day , Notes to Pharmacist: Lot: [id number]: 2026 boxesMedication List reviewed and reconciled with the patientNot-Taking/PRN Gemtesa(Vibegron) 75 MG Tablet 1 tablet Orally Once a day , Notes to Pharmacist: Lot: [id number]: 2026 boxesMedication List reviewed and reconciled with the patient * Allergies: A ugmentin: causes yeast infection - Side Effects - Criticality Lowno[Allergies Verified] Objective: * Vitals: W t:197.4lbs, Ht: 66 in, BMI:31.86Index, Ht-cm: 167.64 cm, Wt-k.54 kg. Assessment: * Assessment: 1. U nspecified urinary incontinence - R32 (Primary) Plan: * Treatment: * Procedures: U rodynamics reviewed and completed. See Scanned document. Urodynamics reviewed. See scanned document. * Procedure Codes: 5 1728 COMPLEX CYSTO WVOID [id number] COMPLEX CYSTO WVOID [id number] COMPLEX UROFLOW.WCALIB.49380 COMPLEX UROFLOW.WCALIB.25605 EMG ANAL OTHER THAN [id number] EMG ANAL OTHER THAN [id number] SLUBBER RUNNER STUDIES; INTRA-ABDOM.64860 SLUBBER RUNNER STUDIES; INTRA-ABDOM. * Follow Up: Dr Lewis/cystoscopy * * Sign off status: Completed Visit Status: C HK (Check Out) true * Provider: Neil Hanson NP-Azalea Date: 0 06/20/2024 Generated for Kelsey sadler/Sangeeta/eTransmitting on: 0 11/18/2024 07:00 AM EDT
--- OUTSIDE RECORDS SUMMARY | 2024-06-26 05:20 | XMS_ITS ---
Author Organization The [facility] in [place] Address [address] [place] [address] Care Team Providers Care Equipment Operator/Laborer Name Role Phone None, Unknown or Primary Care Provider Reillyab Rajat Contreras Unavailable [phone] Allergies Allergen (clinical drug ingredient) Drug/Non Drug [...] Notes Tobacco use: Former smoker Vital Signs Weight 195 lbs 06/26/2024 Height 66 in 06/26/2024 BMI 31.47 kg/m2 06/26/2024 Encounters Encounter Location Date Provider Diagnosis Urology [address] [place] [address] 06/26/2024 Rajat Lewis Unspecified urinary incontinence R32 [...] * LINDA, AbenaOB:[birth year] (54 yo F)Acc No.[id number]:06/26/2024 0 Patient: Lauren CONTRERAS Provider: Ming Lewis MD :1970 A ge:54 Y S ex:Female Date:06/26/2024 Address:[address] [place], [place] [id number] Pcp:Unknown or None Check In:09:13 AM ESTCheck [...] a day , Notes to Pharmacist: Lot: [id number]: 2026 boxesMedication List reviewed and reconciled with the patientDiscontinued Gemtesa(Vibegron) 75 MG Tablet 1 tablet Orally Once a day , Notes to Pharmacist: Lot: [id number]: 2026 boxesMedication List reviewed and reconciled with [...] Lewis MD Date: 0 06/26/2024 Generated for Kelsey sadler/Sangeeta/Steffanyitting on: 0 11/18/2024 07:00 AM EDT
--- OUTSIDE RECORDS SUMMARY | 2024-08-28 06:30 | XMS_ITS ---
Author Organization [facility] [place] Address [address] [place] [address] Care Team Providers Care Video Game Programmer Name Role Phone None, Unknown or Primary Care Provider Unavailab Kelvin Elder Unavailable [phone] REASON FOR VISIT 2 mos Encounters Encounter Location Date Provider Diagnosis Urology [address] [place] [address] 08/28/2024 Kelvin Rogers Plan Of Treatment No Information Progress Notes * LINDATkAneudyOB:[birth year] (54 yo F)Acc No.[id number]:08/28/2024 UNLOCKED PROGRESS NOTE Patient: Lauren CONTRERAS Provider: Neil Rogers NP :1970 A ge:54 Y S ex:Female Date:08/28/2024 Address:[address] [place], [place] [id number] Pcp:Unknown or None Subjective: * Chief Complaints: * 1 . 2 mos. * Medical History: Objective: * Vitals: Assessment: Plan: * Treatment: * * Electronic signature of Kelvin Rogers NP on 11/18/2024 at 06:59 AM EDT Sign off status: Pending Visit Status: C ANCSMS (CANCSMS) * Provider: Neil Rogers NP Date: 0 08/28/2024 Generated for Kelsey sadler/Sangeeta/eTransmitting on: 0 11/18/2024 06:59 AM EDT
--- OUTSIDE RECORDS SUMMARY | 2024-11-18 07:00 | XMS_ITS | Clinical Summary ---
Author Organization [facility] Healthcare Address [address] [place] [address] Care Team Providers Care Landscape Specialist Name Role Phone Jolie Mohamud MD Primary Care Provider [phone] Rachele Mccallum CLERICAL INVESTIGATOR Unavailable [phone] Anna Pino DO Unavailable Rachele Mccallum CLERICAL INVESTIGATOR Unavailable Allergies Active Allergy Reactions Criticality Noted Date [...] morning and 250 mg before bedtime. 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 TAKE 1 CAPSULE (40 MG) BY MOUTH EVERY 12 (TWELVE) HOURS 180 capsule 1 09/13/19 25 Active celecoxib (CeleBREX) 200 MG capsuleIndica tions:Spondyl osis without myelopathy or radiculopathy , lumbar region TAKE 1 CAPSULE BY MOUTH EVERY MORNING 30 capsule 1 09/14/19 25 Active Vit-DSS-Fe Cbn-FA ( AD PO) Take by mouth Active Multiple Vitamins-Mine rals (HAIR VITAMINS PO) Take by mouth Act pantera sertraline (Zoloft) 50 MG tabletIndicat ions:Generali zed anxiety disorder TAKE 1 TABLET BY MOUTH EVERY DAY 90 tablet 1 11/07/19 25 Active busPIRone (Buspar) 10 MG tabletIndicat ions:Generali zed anxiety disorder,Recu rrent major depressive disorder, in partial remission Take 2 tablets (20 mg) by mouth in the morning and 2 tablets (20 mg) before bedtime. 360 tablet 1 11/07/19 25 Active busPIRone (Buspar) 10 MG tabletIndicat ions:Generali zed anxiety disorder,Recu rrent major depressive disorder, in partial remission Take 2 tablets (20 mg) by mouth in the morning and 2 tablets (20 mg) before bedtime. 360 tablet 3 08/18/19 25 025 Discontinued(R eorder) sertraline (Zoloft) 50 MG tabletIndicat ions:Generali zed anxiety disorder Take 1 tablet (50 mg) by mouth Daily 30 tablet 10/11/19 25 025 Discontinued nitrofurantoi n, macrocrystal- monohydrate, (Macrobid) 100 MG capsuleIndica tions:Acute cystitis without hematuria Take 1 capsule (100 mg) by mouth in the morning and 1 capsule (100 mg) before bedtime. Do all this for 5 days. 10 capsule 11/07/19 25 025 Active Problems Problem Noted Date Diagnosed Date [...] 2 obesity 09/12/2018 12/27/2023 Maxillary sinusitis 03/17/2018 12/27/19 Gastroesophageal reflux dise ase with esophagitis 08/16/2017 12/27/2023 Encounters Date Type Department Care Team Description 11/17/2024 Telephone [facility] [address] [place] [phone] Jolie Mohamud MD 11/06/2024 Orders Only [facility] [address] [facility] [place] [phone] Bambi Contreras NP Acute cystitis without hematuria (Primary Dx) 11/06/2024 Refill [facility] [address] [place] [phone] Sabina Krueger NP Generalized anxiety disorder ; Recurrent major depressive disorder, in partial remission 11/06/2024 [address] [place] [address] [place] [address] Jolie Mohamud MD Generalized anxiety disorder 10/16/2024 Clinisync Result Encounter [facility] External Department Unsolicited Provider, Generic External Data 10/13/2024 Orders Only [place] [address] [place] [phone] Bambi Contreras NP Immunity status testing (Primary Dx); Encounter for school history and physical examination 10/10/2024 Refill [address] [place] [address] [place] [phone] Jolie Mohamud MD Generalized anxiety disorder 09/22/2024 Results Follow-Up [place] [address] [place] [address] Bambi Contreras NP Vascular US lower extremity venous duplex right 09/21/2024 2:30 PM EDT Ancillary Procedure [facility] [address] [facility] [address] [place] [phone] Right leg pain 09/21/2024 Travel 09/20/2024 Telephone [place] [address] [facility] [address] Jolie Mohamud MD 09/19/2024 6:30 PM EDT Office Visit [place] [address] [place] [address] Bambi Contreras, GAYE Right leg pain (Primary Dx) 09/19/2024 Bamboo flowsheet [place] [address] [facility] [place] [address] Bambi Contreras NP 09/19/2024 Travel 09/13/2024 Refill [place] [address] [place] [address] Jolie Mohamud MD Spondylosis without myelopathy or radiculopathy, lumbar region 09/12/2024 Refill [address] [place] [address] [place] [address] Bambi Contreras NP 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 09/04/2024 Results Follow-Up [address] [place] [address] Rachele Mccallum NP MEASLES/MUMPS/RUBEL LA IMMUNITY, ALL HEPATITIS B SURFACE AB, VARICELLA-ZOSTER V AB, IGG 09/01/2024 Abstract [place] [address] [facility] [address] Rachele Mccallum NP 08/31/2024 Clinisync Result Encounter [facility] External Department Unsolicited Rachele Mccallum NP 08/28/2024 6:30 PM EDT Office Visit [place] [address] [facility] [place] [address] Rachlee Mccallum NP Generalized anxiety disorder (Primary Dx); Obesity (BMI 30-39.9); Encounter for antibody response examination; Hair loss 08/28/2024 Bamboo flowsheet [place] [address] [place] [address] Rachele Mccallum NP 08/28/2024 Travel from Last 3 Months Immunizations Immunization Administration Dates Next Due HepB-CpG 09/05/2024 Influenza, High Dose Seasona l, Preservative Free 04/05/2019,04/04/2019 Influenza, injectable, MDCK, preservative free, quadrivalent 12/18/2020 Influenza, injectable, quadrivalent 01/27/2018 Influenza, injectable, quadr ivalent, preservative free 12/10/2022,12/29/2021,12/18/2020,2019,04/05/2019,01/27/2018 Influenza, seasonal, injecta ble, preservative free 12/23/2023 Influenza, seasonal, intrade rmal, preservative free 12/21/2014 MMR 09/05/2024 Tdap 03/03/2016 Zoster, Recombinant 03/24/2024,12/23/2023 Family History Medical History Relation Name Comments [...] 0.6 oz pur e alcohol) Caffeine intake: 340mg daily Social Connection and Isolat ion Panel [NHANES] Answer Date Recorded In a typical week, how many times do you talk on the phone with family, friends, or neighbors? Once a week 05/23/2023 How often do you get togethe r with friends or relatives? Once a week 05/23/2023 How often do you attend chur or muslim services? More than 4 times per year [...] Recorded Patient Health Questionnaire-2 Score 0 07/24/2024 [facility] - Occupational Stress Questionnaire Answer Date Recorded [...] place to sleep or slept in a nursing home (including now)? No 05/23/2023 Comments Unknown Sex and Gender Information Value Date Recorded Sex Assigned at Not on file Legal Sex Female 6:47 PM EDT Gender Identity Not on file Sexual Orientation Not on file Last Filed Vital Signs Vital Sign Reading Time Taken Comments Blood Pressure 116/72 09/19/2024 6:23 PM EDT Pulse 93 09/19/2024 6:23 PM EDT Temperature 36.3 C (97.3 F) 09/19/2024 6:23 PM EDT Respiratory Rate 18 08/28/2024 4:39 PM EDT Oxygen Saturation 97% 09/19/2024 6:23 PM EDT Inhaled Oxygen Concentration - - Weight 83.9 kg (185 lb) 09/19/2024 6:23 PM EDT Height 165.1 cm (5' 5 ) 08/28/2024 4:39 PM EDT Body Mass Index 30.79 08/28/2024 4:39 PM EDT Plan of Treatment Health Maintenance Due Date Last Done Comments CT Colonography 1972 Colonoscopy 1972 FIT 1972 FOBT 1972 Sigmoidoscopy 1972 Influenza Vaccine (#1) 2024 , 12/10/2022, 12/29/2021, Additional history exists Mammogram 12/28/2024 12/29/2023, 12/13, 10/23/2022, Additional history exists Colorectal Cancer Screening 10/24/2025 FIT-DNA 10/24/2025 10/24/2022 Goals Goal Patient Goal Type Associated Problems Recent Progress Patient-Stated? Author Help patient manage antidepressant medication Care Plan Patient on antidepressant monitoring plan Rachele Lovelace NP Procedures Procedure Name Priority Date/Time Associated Diagnosis Comments MEASLES/MUMPS/RUBELLA IMMUNITY Routine 10/16/2024 7:03 AM EDT ALL HEPATITIS B SURFACE AB Routine 10/16/2024 7:03 AM EDT VASC US LOWER EXTREMITY VENOUS DUPLEX RIGHT Routine 09/21/2024 3:01 PM EDT Right leg pain VARICELLA-ZOSTER V AB, IGG Routine 08/31/2024 9:26 AM EDT ALL HEPATITIS B SURFACE AB Routine 08/31/2024 9:26 AM EDT MEASLES/MUMPS/RUBELLA IMMUNITY Routine 08/31/2024 9:26 AM EDT BI MAMMOGRAM DIAGNOSTIC TOMOSYNTHESIS RIGHT Routine 12/29/2023 2:22 PM EDT Abnormal mammogram of right breast LAB COLOGUARD COLON CANCER SCREEN Routine 10/24/2022 1:23 PM EDT Screening for colon cancer from Last 3 Months or Most Recently Relevant to Health Maintenance Results * MEASLES/MUMPS/RUBELLA IMMUNITY (10/16/2024 7:03 AM EDT) Only the most recent of2 resultswithin the time period is included. RUBELLA ANTIBODIES, IGG 4.22 Immune >0.99 index [facility] Comment: Non-immune <0.90 Equivocal 0.90 - 0.99 Immune >0.99 MEASLES ANTIBODIES, IGG 186.0 Immune >16.4 AU/mL [facility] Comment: Negative <13.5 Equivocal 13.5 - 16.4 Positive >16.4 Presence of antibodies to Rubeola is presumptive evidence of immunity except when acute infection is suspected. MUMPS ABS, IGG 111.0 Immune >10.9 AU/mL TB Comment: Negative <9.0 Equivocal 9.0 - 10.9 Positive >10.9 A positive result generally indicates past exposure to Mumps virus or previous vaccination. Performed at: [address] [id number] Service Station Attendant: Abdullahi Phelps PhD, Phone: [phone] 10/16/2024 7:03 AM EDT 10/16/2024 7:05 AM EDT Narrative TRISH - 10/17/2024 8:08 AM EDT Generic External Data Provider LAB BLOOD ORDERAB LES Final Result Performing Organization Address [facility] [address]/[facility] Co de Phone Number [place] * ALL HEPATITIS B SURFACE AB (10/16/2024 7:03 AM EDT) Only the most recent of2 resultswithin the time period is included. Pathologist [facility] HEP B SURFACE AB Reactive . [facility] Comment: Non Reactive: Not immune to HBV infection. Equivocal: Unable to determine if anti-HBs is present at levels consistent with immunity. Reactive: Anti-HBs concentration detected at greater than 10 mIU/mL. Individual is considered to be immune to infection with HBV. Performed at: [address] [id number] Service Station Attendant: Abdullahi Phelps PhD, Phone: [phone] 10/16/2024 7:03 AM EDT 10/16/2024 7:05 AM EDT Narrative TRISH - 10/17/2024 5:08 AM EDT Generic External Data Provider CLIN[facility]YNC F inal Result Performing Organization Address [facility] [address]/[facility] Co de Phone Number [place] * Vascular US lower extremity venous duplex right (09/21/2024 3:01 PM EDT) Anatomical Region Laterality Modality Lower Extremities Ultrasound 09/21/2024 3:32 PM EDT Impressions 09/21/2024 3:33 PM EDT No acute DVT of the right leg. ELECTRONICALLY SIGNED BY: Nathen Mejia MD Narrative 09/21/2024 3:33 PM EDT HISTORY: Right leg pain. COMPARISON: None. TECHNIQUE: The right lower extremity veins were evaluated with color Doppler, grayscale imaging, and spectral analysis while using compression and augmentation when possible. RESULT: Evaluation of the right lower extremity veins from the thigh to the calf shows normal phasic flow, and normal augmentation of the Doppler signal, and normal compression of the deep veins. There is no sonographic evidence for acute deep venous thrombosis from the right groin to the popliteal region. There is no sonographic evidence for acute deep vein thrombosis in the right calf veins. No evidence for SVT. Limited sonographic evaluation of the area of pain is grossly unremarkable. Procedure Note Nathen Mejia MD - 09/21/2024 HISTORY: Right leg pain. COMPARISON: None. TECHNIQUE: The right lower extremity veins were evaluated with colorDoppler, grayscale imaging, and spectral analysis while using compressionand augmentation when possible. RESULT: Evaluation of the right lower extremity veins from the thigh to the calfshows normal phasic flow, and normal augmentation of the Doppler signal,and normal compression of the deep veins. There is no sonographic evidencefor acute deep venous thrombosis from the right groin to the poplitealregion. There is no sonographic evidence for acute deep vein thrombosis inthe right calf veins. No evidence for SVT. Limited sonographic evaluation of the area of pain is grosslyunremarkable. IMPRESSION: No acute DVT of the right leg. ELECTRONICALLY SIGNED BY: Nathen Mejia MD Bambi Contreras NP IMG US PROCEDURES Final Result * VARICELLA-ZOSTER V AB, IGG (08/31/2024 9:26 AM EDT) [facility] Reactive Non Reactive [facility] Comment: Please note reference interval change A Reactive result is considered evidence of immunity to VZV. Reactive indicates that VZV IgG was detected consistent with previous infection and/or vaccination. A Non Reactive result indicates that VZV IgG was not detected suggesting that immunity has not been acquired. Performed at: - [address] [id number] Service Station Attendant: Abdullahi Phelps PhD, Phone: [phone] 08/31/2024 9:26 AM EDT 08/31/2024 9:27 AM EDT Narrative CLINISYNC - 09/01/2024 5:07 AM EDT us Rachele Mccallum NP LAB BLOOD ORDERABLES Fi nal Result [facility] * Right diagnostic mammogram with tomosynthesis (12/29/2023 [...] 2 ELECTRONICALLY SIGNED BY: Jarek Treadwell M.D. Sabina Krueger CLERICAL INVESTIGATOR IMG BI PROCEDURES Final Result * Cologuard?? colon cancer screening (10/24/2022 1:23 PM EDT) NONINV COLON CA DNA+OCC BLD SCRN STL-IMP Negative Negative 11/04/2022 1:34 PM EDT [facility] (CLIA #:[id number]) Comment: NEGATIVE TEST RESULT. A negative Cologuard [...] screened with both Cologuard and colonoscopy. (Boyd Thorne al, N Engl J Med 2014;370(14):2352-8071) The normal value (reference range) for this assay is negative. COLOGUARD RE-SCREENING RECOMMENDATION: Periodic colorectal cancer screening is an important part of preventive healthcare for asymptomatic individuals at average risk for colorectal cancer. Following a negative Cologuard result, the [place] [employer] Society and U.S. Multi-Society Task Force screening guidelines recommend a Cologuard re-screening interval of 3 years. References: [place] [employer] Guideline for Colorectal Cancer Screening: https://www.cancer.org/cancer/olovy-mgmzqc-vqrwxa/oeirdnves-khzqfqani-ikosqcr/ac s-rec ommendations.html.; Jamari DK, Felicita CR, Arun BoschK, Colorectal Cancer Screening: Recommendations for Physicians and Patients from the U.S. Multi-Society Task Force on Colorectal Cancer Screening , Am J Gastroenterology 2017; 112:8041-5972. TEST DESCRIPTION: Composite algorithmic analysis of stool [...] screened with both Cologuard and colonoscopy. (Boyd Thorne al, N Engl J Med 2014;370(14):7703-8201.) Cologuard may produce a false negative or false positive result (no colorectal cancer or precancerous polyp present at colonoscopy follow up). A negative Cologuard test result does not guarantee the absence of CRC or advanced adenoma (pre-cancer). The current Cologuard screening interval is every 3 years. ([place] [employer] Society and U.S. Multi-Society Task Force). Cologuard performance data in a 10,000 patient pivotal study using colonoscopy as the reference method can be accessed at the following location: www.[employer]/results. Additional description of the Cologuard test process, warnings and precautions can be found at www.W[employer]. Stool specimen (specimen) 10/24/2022 1:23 PM EDT 10/27/2022 10:39 PM EDT Rachele Mccallum CLERICAL INVESTIGATOR LAB MOLECULAR DIAGNOSTI CS ORDERABLES Final Result .[facility] (CLIA #:[id number]) [address] [place] [id number], [facility] (CLIA #:[id number]) [address] [place] [address] from Last 3 Months or Most Recently Relevant to Health Maintenance Additional Health Concerns Active Problems Noted Date Diagnosed Date Patient on antidepressant monitoring plan [address] [facility] Care Teams Landscape Specialist Relationship Specialty Start Date End Date Jolie Mohamud MD [address] [facility] [place], [place] [id number] PCP - General Family Medicine 08/11/22 Rachele Mccallum NP [address] [facility] [address] [place] [address] PCP - [place] 06/13/24 Rachele Mccallum NP [address] [place] [address] Nurse Practitioner Family Medicine 08/11/22 Anna Pino DO [address] [place] [address] Referring Physician Neurology 05/31/23
--- OUTSIDE RECORDS SUMMARY | 2024-11-18 07:00 | XMS_ITS | Encounter Summary ---
Author Organization [facility] Address [address] [place] [address] Care Team Providers Care Sap Business Objects Consultant Name Role Phone Jolie Mohamud MD Primary Care Provider [phone] Rachele Mccallum [employer]ER [employer] Unavailable [phone] Anna Pino DO Unavailable [phone] Rachele Mccallum [employer]IL[employer] Unavailable [phone] Encounter Details Date Type Department Care Team (Late st Contact Info) Description 04/30/2023 Abstract [facility] Family Medicine [address] [place] [address] Jolie Mohamud MD [address] [place] [address] Social History Tobacco Use Types [...] on filedocumented in this encounter Care Teams Sap Business Objects Consultant Relationship Specialty Start Date End Date Jolie Mohamud MD [address] [place] [address] PCP - General Family Medicine 08/11/22 Rachele Mccallum NP [address] [address] PCP - [facility] 06/13/24 Rachele Mccallum NP [address] [facility] [place] [address] Nurse Practitioner Family Medicine 08/11/22 Anna Pino DO [address] [place] [address] Referring Physician Neurology 05/31/23 documented as of this encounter
--- OUTSIDE RECORDS SUMMARY | 2024-11-18 07:00 | XMS_ITS | Encounter Summary ---
Author Organization [facility] Healthcare Address [address] [place] [address] Care Team Providers Care Hearing Aid Mechanic Name Role Phone Jolie Mohamud MD Primary Care Provider [phone] Rachele Mccallum KENNEL ATTENDANT Unavailable Anna Pino DO Unavailable [phone] Racehle Mccallum KENNEL ATTENDANT Unavailable Reason for Visit * Reason Comments Med Change Request Encounter Details Date Type Department Care Team (Late st Contact Info) Description 06/19/2024 Refill [facility] Family Medicine [address] [place] [address] Bambi Contreras NP [address] [place] [address] Hot flashes Social History Tobacco Use Types [...] often do you attend chur ch or muslim services? More than 4 times [...] Recorded Patient Health Questionnaire-2 Score 1 03/27/2024 [facility] - Occupational Stress [...] place to sleep or slept in a half-way (including now)? No 05/23/2023 Comments Unknown Sex [...] documented as of this encounter Care Teams Hearing Aid Mechanic Relationship Specialty Start Date End Date Jolie Mohamud MD [address] [place] [address] PCP - General Family Medicine 08/11/22 Rachele Mccallum NP [address] [facility] [place] [address] [facility] 06/13/24 Rachele Mccallum NP [address] [facility] [place] [address] Nurse Practitioner Family Medicine 08/11/22 Anna Pino DO [address] [place] [address] Referring Physician Neurology 05/31/23 documented as of this encounter
--- OUTSIDE RECORDS SUMMARY | 2024-11-18 07:00 | XMS_ITS | Encounter Summary ---
Author Organization [facility] Address [address] [place] [address] Care Team Providers Care Survey Research Associate Name Role Phone Jolie Mohamud MD Primary Care Provider [phone] Rachele Mccallum MARKER MACHINE Unavailable [phone] Anna Pino DO Unavailable [phone] Rachele Mccallum MARKER MACHINE Unavailable Encounter Details Date Type Department Care Team (Late st Contact Info) Description 11/26/2022 Abstract [facility] Family Medicine [address] [place] [address] Jolie Mohamud MD [address] [place] [address] Social History Tobacco Use Types [...] on filedocumented in this encounter Care Teams Survey Research Associate Relationship Specialty Start Date End Date Jolie Mohamud MD [address] [place] [address] PCP - General Family Medicine 08/11/22 Rachele Mccallum NP [address] [address] PCP - [facility] 06/13/24 Rachele Mccallum NP [address] [facility] [place] [address] Nurse Practitioner Family Medicine 08/11/22 Anna Pino DO [address] [place] [address] Referring Physician Neurology 05/31/23 documented as of this encounter
--- OUTSIDE RECORDS SUMMARY | 2024-11-18 07:00 | XMS_ITS | Encounter Summary ---
Author Organization [facility] Healthcare Address [address] [place] [address] Care Team Providers Care Clinical Laboratory Medical Director Name Role Phone Jolie Mohamud MD Primary Care Provider [phone] Rachele Mccallum SALES LEDGER ADMINISTRATOR Unavailable Anna Pino DO Unavailable [phone] Rachele Mccallum SALES LEDGER ADMINISTRATOR Unavailable Reason for Visit * Reason Comments Med Change Request Encounter Details Date Type Department Care Team (Late st Contact Info) Description 09/30/2022 Refill [facility] Family Medicine [address] [place] [address] Bambi Contreras NP [address] [place] [address] Seasonal allergies Social History Tobacco Use Types [...] unspecified documented in this encounter Care Teams Clinical Laboratory Medical Director Relationship Specialty Start Date End Date Jolie Mohamud MD [address] [place] [address] PCP - General Family Medicine 08/11/22 Rachele Mccallum NP [address] [address] PCP - [facility] 06/13/24 Rachele Mccallum NP [address] [facility] [place] [address] Nurse Practitioner Family Medicine 08/11/22 Anna Pino DO [address] [place] [address] Referring Physician Neurology 05/31/23 documented as of this encounter
--- OUTSIDE RECORDS SUMMARY | 2024-11-18 07:00 | XMS_ITS | Encounter Summary ---
Author Organization [facility] Address [address] [place] [address] Care Team Providers Care Marine Service Operator Name Role Phone Jolie Mohamud MD Primary Care Provider [phone] Rachele Mccallum LABOR CREW SUPERVISOR Unavailable [phone] Anna Pino DO Unavailable [phone] Rachele Mccallum LABOR CREW SUPERVISOR Unavailable [phone] Encounter Details Date Type Department Care Team (Late st Contact Info) Description 09/01/2024 Abstract [facility] [address] [place] [address] Rachele Mccallum LABOR CREW SUPERVISOR [address] [place] [phone] Social History Tobacco Use Types Packs/Day Years [...] often do you attend chur ch or methodist services? More than 4 times per year 05/23/2023 Do you belong to any clubs o r organizations such as quaker groups, unions, fraternal or athletic groups, or [...] Recorded Patient Health Questionnaire-2 Score 0 07/24/2024 [facility] of Occupat ional [facility] - Occupational Stress Questionnaire Answer Date [...] place to sleep or slept in a chcf (including now)? No 05/23/2023 Comments Unknown Sex [...] documented as of this encounter Care Teams Marine Service Operator Relationship Specialty Start Date End Date Jolie Mohamud MD [address] [place] [address] PCP - General Family Medicine 08/11/22 Rachele Mccallum NP [address] [address] [place] [phone] [facility]/13[facility]24 Rachele Mccallum NP [address] [place] [address] Nurse Practitioner Family Medicine 08/11/22 Anna Pino DO [address] [place] [address] Referring Physician Neurology 05/31/23 documented as of this encounter
--- OUTSIDE RECORDS SUMMARY | 2024-11-18 07:00 | XMS_ITS | Encounter Summary ---
Author Organization [facility] Healthcare Address [address] [place] [address] Care Team Providers Care Electric Sign Wirer Name Role Phone Jolie Mohamud MD Primary Care Provider [phone] Rachele Mccallum ENGLISH LANGUAGE LEARNER TUTOR Unavailable Anna Pino DO Unavailable [phone] Rachele Mccallum ENGLISH LANGUAGE LEARNER TUTOR Unavailable [phone] Reason for Visit * Reason Onset Date Comments Med Refill 01/16/2023 Encounter Details Date Type Department Care Team (Late st Contact Info) Description 01/16/2023 Refill [facility] Family Medicine [address] [place] [address] Jolie Mohamud MD [address] [place] [address] 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) Social History Tobacco Use Types Packs/Day Years Used Date Smoking Tobacco: Former Cigarettes 1 - 2013 Smokeless Tobacco: Never Comments:Last smoked: 5-10 [...] Primary documented in this encounter Care Teams Electric Sign Wirer Relationship Specialty Start Date End Date Jolie Mohamud MD [address] [place] [address] PCP - General Family Medicine 08/11/22 Rachele Mccallum NP [facility] 1 [place] [address] PCP - [facility] 06/13/24 Rachele Mccallum NP [address] [place] [address] Nurse Practitioner Family Medicine 08/11/22 Anna Pino DO [address] [place] [address] Referring Physician Neurology 05/31/23 documented as of this encounter
--- OUTSIDE RECORDS SUMMARY | 2024-11-18 07:00 | XMS_ITS | Clinical Summary ---
Author Organization [employer] Address [id number] [address] [place] [address] Care Team Providers Care Director Shopper Marketing Name Role Phone Jolie Mohamud MD Primary [...] 03/03/2016 Medical Devices Not on file Insurance [facility] Care Teams Director Shopper Marketing Relationship Specialty Start Date End Date Jolie Mohamud MD [address] [place] [address] PCP - General Family Medicine 06/06/18
--- OUTSIDE RECORDS SUMMARY | 2024-11-18 07:00 | XMS_ITS | Encounter Summary ---
Author Organization [facility] Healthcare Address [address] [place] [address] Care Team Providers Care Police Stenographer Name Role Phone Jolie Mohamud MD Primary Care Provider [phone] PATCHER Unavailable [phone] Anna Pino DO Unavailable [phone] PATCHER Unavailable Reason for Visit * Reason Onset Date Comments Med Refill 11/06/2024 Encounter Details Date Type Department Care Team (Late st Contact Info) Description 11/06/2024 Refill [facility] Family Medicine [address] [place] [address] PATCHER [address] [place] [address] Generalized anxiety disorder ; Recurrent [...] How often do you attend chur or baptism services? More than 4 times per year 05/23/2023 Do you belong to any clubs o r organizations such as hindu groups, unions, fraternal or athletic groups, or [...] Recorded Patient Health Questionnaire-2 Score 0 07/24/2024 [facility] of Occupat ional Health - Occupational [...] documented as of this encounter Care Teams Police Stenographer Relationship Specialty Start Date End Date Jloie Mohamud MD [address] [place] [address] PCP - General Family Medicine 08/11/22 Rachele Mccallum NP [address] [facility] [place] [address] PCP - [place] [employer] 06/13/24 Rachele Mccallum NP [address] [place] [address] Nurse Practitioner Family Medicine 08/11/22 Anna Pino DO [address] [place] [address] Referring Physician Neurology 05/31/23 documented as of this encounter
--- OUTSIDE RECORDS SUMMARY | 2024-11-18 07:00 | XMS_ITS | Encounter Summary ---
Author Organization [facility] Healthcare Address [address] [place] [address] Care Team Providers Care Media Associate Name Role Phone Jolie Mohamud MD Primary Care Provider [phone] Rachele Mccallum HIGH SCHOOL DRAFTING TEACHER Unavailable Anna Pino DO Unavailable [phone] Rachele Mccallum HIGH SCHOOL DRAFTING TEACHER Unavailable [phone] Reason for Visit * Reason Comments Med Refill Encounter Details Date Type Department Care Team (Late st Contact Info) Description 04/19/2024 Refill [facility] Family Medicine [address] [place] [address] Bambi Contreras NP [address] [place] [address] Spondylosis without myelopathy or radiculopathy, lumbar region [...] often do you attend chur ch or rastafarian services? More than 4 times per year 05/23/2023 Do you belong to any clubs o r organizations such as bahai groups, unions, fraternal or athletic groups, or [...] Recorded Patient Health Questionnaire-2 Score 1 03/27/2024 [facility] of Occupat ional Health - [...] documented as of this encounter Care Teams Media Associate Relationship Specialty Start Date End Date Jolie Mohamud MD [address] [place] [address] PCP - General Family Medicine 08/11/22 Rachele Mccallum NP [address] [phone] PCP - [place] [employer] 06/13/24 Rachele Mccallum NP [address] [place] [address] Nurse Practitioner Family Medicine 08/11/22 Anna Pino DO [address] [place] [address] Referring Physician Neurology 05/31/23 documented as of this encounter
--- OUTSIDE RECORDS SUMMARY | 2024-11-18 07:00 | XMS_ITS | Encounter Summary ---
Author Organization [facility] Address [address] [place] [address] Care Team Providers Care Blueprinting Machine Operator Name Role Phone Jolie Mohamud MD Primary Care Provider [phone] Rachele Mccallum TAKE UP OPERATOR Unavailable Anna Pino DO Unavailable [phone] Rachele Mccallum TAKE UP OPERATOR Unavailable Reason for Visit * Reason Onset Date Comments Med Refill 05/06/2023 Encounter Details Date Type Department Care Team (Late st Contact Info) Description 05/06/2023 Telephone [facility] Family Medicine [address] [place] [address] Jolie Mohamud MD [address] [place] [address] Med Refill Social History Tobacco [...] following medications: Other - Oxybutnin Preferred pharmacy: [id number] [place], [place] - [address] [place] [address] Delivery method: Pickup documented in this encounter Plan of Treatment Not on file documented as of this encounter Visit Diagnoses Diagnosis Stress incontinence of urine- Primary documented in this encounter Care Teams Blueprinting Machine Operator Relationship Specialty Start Date End Date Jolie Mohamud MD [address] [facility] [place] [address] PCP - General Family Medicine 08/11/22 Rachele Mccallum NP [facility] [address] [phone] PCP - [place] [employer] 06/13/24 Rachele Mccallum NP [address] [facility] [place] [address] Nurse Practitioner Family Medicine 08/11/22 Anna Pino DO [address] [place] [address] Referring Physician Neurology 05/31/23 documented as of this encounter
--- OUTSIDE RECORDS SUMMARY | 2024-11-18 07:00 | XMS_ITS | Encounter Summary ---
Author Organization [facility] Address [address] [place] [address] Care Team Providers Care Spa Attendant Name Role Phone Jolie Mohamud MD Primary Care Provider [phone] Rachele Mccallum PARALEGAL ASSISTANT Unavailable [phone] Anna Pino DO Unavailable [phone] Rachele Mccallum PARALEGAL ASSISTANT Unavailable Encounter Details Date Type Department Care Team (Late st Contact Info) Description 01/21/2023 Abstract [facility] Family Medicine [address] [place] [address] Bambi Contreras NP [address] [place], [place] [phone] Social History Tobacco Use Types Packs/Day Years [...] on filedocumented in this encounter Care Teams Spa Attendant Relationship Specialty Start Date End Date Jolie Mohamud MD [address] [place] [address] PCP - General Family Medicine 08/11/22 Rachele Mccallum NP [address] [facility] 1 [place] [address] PCP - [facility] 06/13/24 Rachele Mccallum NP 14[address] [facility] [place] [address] Nurse Practitioner Family Medicine 08/11/22 Anna Pino DO [address] [place] [address] Referring Physician Neurology 05/31/23 documented as of this encounter
--- OUTSIDE RECORDS SUMMARY | 2024-11-18 07:00 | XMS_ITS | Encounter Summary ---
Author Organization [facility] Healthcare Address [address] [place] [address] Care Team Providers Care Lead Business Analyst Name Role Phone Jolie Mohamud MD Primary Care Provider [phone] Rachele Mccallum LEASE ATTENDANT Unavailable [phone] Anna Pino DO Unavailable [phone] Rachele Mccallum LEASE ATTENDANT Unavailable [phone] Reason for Visit * Reason Comments Med Change Request Encounter Details Date Type Department Care Team (Late st Contact Info) Description 10/12/2023 Refill [facility] Family Medicine [address] [place] [address] Rachele Mccallum LEASE ATTENDANT [address] [place] [address] Recurrent major depressive disorder, in partial remission [...] often do you attend chur ch or anabaptist services? More than 4 times per year [...] Recorded Patient Health Questionnaire-2 Score 2 10/04/2023 [facility] of Occupat ional [facility] - Occupational Stress Questionnaire Answer [...] place to sleep or slept in a senior care (including now)? No 05/23/2023 Comments Unknown Sex [...] documented as of this encounter Care Teams Lead Business Analyst Relationship Specialty Start Date End Date Jolie Mohamud MD [address] [place] [address] PCP - General Family Medicine 08/11/22 Rachele Mccallum NP [address] [facility] [place] [address] PCP - [place] [employer] 06/13/24 Rachele Mccallum NP [address] [place] [address] Nurse Practitioner Family Medicine 08/11/22 Anna Pino DO [address] [place] [address] Referring Physician Neurology 05/31/23 documented as of this encounter
--- OUTSIDE RECORDS SUMMARY | 2024-11-18 07:00 | XMS_ITS | Encounter Summary ---
Author Organization [employer] Address [id number] [address] [place] [address] Care Team Providers Care Display Department Manager Name Role Phone Jolie Mohamud MD Primary Care Provider [phone] Encounter Details Date Type Department Care Team (Late st Contact Info) Description 10/23/2022 Abstract [facility] - Medical Oncology [address] [place] [phone] Mamie Banks Social History Tobacco Use Types [...] on filedocumented in this encounter Care Teams Display Department Manager Relationship Specialty Start Date End Date Jolie Mohamud MD [address] [place] [address] PCP - General Family Medicine 06/06/18 documented as of this encounter
--- OUTSIDE RECORDS SUMMARY | 2024-11-18 07:00 | XMS_ITS | Encounter Summary ---
Author Organization [facility] Address [address] [place] [address] Care Team Providers Care Assistant Golf Course Superintendent Name Role Phone Jolie Mohamud MD Primary Care Provider [phone] Rachele Mccallum RESIDENCE COUNSELOR Unavailable [phone] Anna Pino DO Unavailable [phone] Rachele Mccallum RESIDENCE COUNSELOR Unavailable Encounter Details Date Type Department Care Team (Late st Contact Info) Description 12/05/2023 Abstract [facility] Family Medicine [address] [place] [address] Bambi Contreras NP [address] [place] [address] Social History Tobacco Use Types [...] How often do you attend chur or uatsdin services? More than 4 times per year 05/23/2023 Do you belong to any clubs o r organizations such as anglican groups, unions, fraternal or athletic groups, or [...] Recorded Patient Health Questionnaire-2 Score 0 12/09/2023 [facility] of Occupat ional [facility] - Occupational Stress Questionnaire Answer Date [...] place to sleep or slept in a long term (including now)? No 05/23/2023 Comments Unknown Sex [...] documented as of this encounter Care Teams Assistant Golf Course Superintendent Relationship Specialty Start Date End Date Jolie Mohamud MD [address] [facility] [place] [address] PCP - General Family Medicine 08/11/22 Rachele Mccallum NP [address] [address] [place] [address] PCP - [facility] 06/13/24 Rachele Mccallum NP [address] [facility] [place] [address] Nurse Practitioner Family Medicine 08/11/22 Anna Pino DO [address] [place] [address] Referring Physician Neurology 05/31/23 documented as of this encounter
--- OUTSIDE RECORDS SUMMARY | 2024-11-18 07:00 | XMS_ITS | Encounter Summary ---
Author Organization [facility] Healthcare Address [address] [place] [address] Care Team Providers Care Rocket Scientist Name Role Phone Jolie Mohamud MD Primary Care Provider [phone] Rachele Mccallum AREA DIRECTOR OF HOME HEALTH SALES Unavailable [phone] Anna Pino DO Unavailable [phone] Rachele Mccallum AREA DIRECTOR OF HOME HEALTH SALES Unavailable [phone] Reason for Visit * Reason Onset Date Comments Med Refill 08/23/2023 Encounter Details Date Type Department Care Team (Late st Contact Info) Description 08/23/2023 Refill [facility] Family Medicine [address] [place] [address] Rachele Mccallum, AREA DIRECTOR OF HOME HEALTH SALES [address] [facility] 1 [place] [address] Recurrent major depressive disorder, in partial remission [...] How often do you attend chur or rastafarian services? More than 4 times per year 05/23/2023 Do you belong to any clubs o r organizations such as confucianism groups, unions, fraternal or athletic groups, or [...] Recorded Patient Health Questionnaire-2 Score 0 06/24/2023 [facility] - Occupational Stress Questionnaire Answer [...] place to sleep or slept in a mcc (including now)? No 05/23/2023 Comments Unknown Sex [...] documented as of this encounter Care Teams Rocket Scientist Relationship Specialty Start Date End Date Jolie Mohamud MD [address] [place] [address] PCP - General Family Medicine 08/11/22 Rachele Mccallum NP [address] [phone] PCP - [facility] 06/13/24 Rachele Mccallum NP [address] [place] [address] Nurse Practitioner Family Medicine 08/11/22 Anna Pino DO [address] [place] [address] Referring Physician Neurology 05/31/23 documented as of this encounter
--- OUTSIDE RECORDS SUMMARY | 2024-11-18 07:00 | XMS_ITS | Encounter Summary ---
Author Organization [facility] Address [address] [place] [address] Care Team Providers Care Still Operator Gin Name Role Phone Jolie Mohamud MD Primary Care Provider [phone] Rachele Mccallum SHOEMAKER APPRENTICE Unavailable Anna Pino DO Unavailable [phone] Rachele Mccallum SHOEMAKER APPRENTICE Unavailable Encounter Details Date Type Department Care Team (Late st Contact Info) Description 01/01/2023 Orders Only [facility] Family Medicine [address] [place] [address] Rachele Mccallum SHOEMAKER APPRENTICE [address] [place] [address] Social History Tobacco Use Types Packs/Day Years [...] on filedocumented in this encounter Care Teams Still Operator Gin Relationship Specialty Start Date End Date Jolie Mohamud MD [address] [facility] [place] [address] PCP - General Family Medicine 08/11/22 Rachele Mccallum NP [address] [address] PCP - [facility] 06/13/24 Rachele Mccallum NP [address] [facility] [place] [address] Nurse Practitioner Family Medicine 08/11/22 Anna Pino DO [address] [place] [address] Referring Physician Neurology 05/31/23 documented as of this encounter
--- OUTSIDE RECORDS SUMMARY | 2024-11-18 07:00 | XMS_ITS | Encounter Summary ---
Author Organization [employer] Address [id number] [address] [place] [address] Care Team Providers Care Rehabilitation Nurse Name Role Phone Jolie Mohamud MD Primary Care Provider [phone] Reason for Visit * Reason Comments Med Refill Encounter Details Date Type Department Care Team (Late st Contact Info) Description 10/03/2018 Refill [facility] General Surgery [address] [place] [phone] Jose E Baldwin DO [address] [place], [place] [phone] Social History Tobacco Use Types Packs/Day Years [...] on filedocumented in this encounter Care Teams Rehabilitation Nurse Relationship Specialty Start Date End Date Jolie Mohamud MD [address] [facility] [place] [address] PCP - General Family Medicine 06/06/18 documented as of this encounter
--- OUTSIDE RECORDS SUMMARY | 2024-11-18 07:00 | XMS_ITS | Encounter Summary ---
Author Organization [facility] Address [address] [place] [address] Care Team Providers Care Certified Travel Counselor Name Role Phone Jolie Mohamud MD Primary Care Provider [phone] Rachele Mccallum TEST DIRECTOR Unavailable [phone] Anna Pino DO Unavailable [phone] Rachele Mccallum TEST DIRECTOR Unavailable Encounter Details Date Type Department Care Team (Late st Contact Info) Description 11/17/2024 Telephone [facility] [address] [place] [address] Jolie Mohamud MD [address] [place] [address] Social History Tobacco Use Types [...] any clubs o r organizations such as buddhism groups, unions, fraternal or athletic groups, or [...] Recorded Patient Health Questionnaire-2 Score 0 07/24/2024 [facility] of Occupat ional [facility] - Occupational Stress Questionnaire Answer Date [...] encounter Miscellaneous Notes * Telephone Encounter - Jolie Luna MA - 11/17/2024 10:25 AM EDT faxed * Addendum Note - Bambi Contreras NP - 11/17/2024 10:22 AM EDTAddended by: BAMBI CONTRERAS on: 11/17/2024 10:22 AM Modules accepted: Orders * Telephone Encounter - Merritt Garsia - 11/17/2024 10:09 AM EDT Lauren needs an order for a drug screen for work - please send order to [facility] , ty she said a 10 or 12 panel , either was kathy Aguilar [address] [facility] fax# [phone] documented in this encounter Plan of Treatment Scheduled Orders Name Type Priority Associated Diagnoses Orde r Schedule URINE DRUG SCREEN W/CONFIRM ([facility]) Lab Routine Encounter for drug screening Expected: 11/17/2024 (Approximate), Expires: 11/17/2025 documented as of this encounter Goals Goal Patient Goal Type Associated Problems Recent Progress Patient-Stated? Author Help patient manage antidepressant medication Care Plan Patient on antidepressant monitoring plan No Rachele Mccallum NP documented as of this encounter Visit Diagnoses Diagnosis Encounter for drug screening- Primary documented in this encounter Additional Health Concerns Active Problems Noted Date Diagnosed Date Patient on antidepressant monitoring plan 2024 Assessment Noted Time PHQ-9 Depression Total Score: 0 07/25/19 25 6:00 PM EDT documented as of this encounter Care Teams Certified Travel Counselor Relationship Specialty Start Date End Date Jolie Mohamud MD [address] [place] [address] PCP - General Family Medicine 08/11/22 Rachele Mccallum NP [address] [facility] 1 [place] [address] PCP - [facility] 06/13/24 Rachele Mccallum NP [address] [facility] [place] [address] Nurse Practitioner Family Medicine 08/11/22 Anna Pino DO [address] [place] [address] Referring Physician Neurology 05/31/23 documented as of this encounter
--- OUTSIDE RECORDS SUMMARY | 2024-11-18 07:00 | XMS_ITS | Encounter Summary ---
Author Organization [facility] Address [address] [place] [address] Care Team Providers Care Stringing Machine Tender Name Role Phone Jolie Mohamud MD Primary Care Provider [phone] Rachele Mccallum AIRCRAFT INSTRUMENT REPAIRER Unavailable [phone] Anna Pino DO Unavailable [phone] Rachele Mccallum AIRCRAFT INSTRUMENT REPAIRER Unavailable Encounter Details Date Type Department Care Team (Late st Contact Info) Description 11/06/2024 Orders Only [facility] Family Medicine [address] [place] [address] Bambi Contreras NP [address] [place] [address] Acute cystitis without hematuria (Primary Dx) Social History Tobacco Use Types [...] often do you attend chur ch or adventist services? More than 4 times per year 05/23/2023 Do you belong to any clubs o r organizations such as mormon groups, unions, fraternal or athletic groups, or [...] Recorded Patient Health Questionnaire-2 Score 0 07/24/2024 [facility] of Occupat ional Health - Occupational [...] place to sleep or slept in a skilled nursing (including now)? No 05/23/2023 Comments Unknown Sex [...] as of this encounter Visit Diagnoses Diagnosis Acute cystitis without hematuria- Primary documented in this encounter Additional Health Concerns Active Problems Noted Date Diagnosed Date Patient on antidepressant monitoring plan 2024 Assessment Noted Time PHQ-9 Depression Total Score: 0 07/25/19 25 6:00 PM EDT documented as of this encounter Care Teams Stringing Machine Tender Relationship Specialty Start Date End Date Jolie Mohamud MD [address] [place] [address] PCP - General Family Medicine 08/11/22 Rachele Mccallum NP [address] [place] [address] [facility] Rachele Mccallum NP [address] [facility] [address] Nurse Practitioner Family Medicine 08/11/22 Anna Pino DO [address] [place] [address] Referring Physician Neurology 05/31/23 documented as of this encounter
--- OUTSIDE RECORDS SUMMARY | 2024-11-18 07:00 | XMS_ITS | Encounter Summary ---
Author Organization [facility] Healthcare Address [address] [place] [address] Care Team Providers Care Ore Digger Name Role Phone Jolie Mohamud MD Primary Care Provider [phone] Rachele Mccallum ROTARY KILN OPERATOR Unavailable [phone] Anna Pino DO Unavailable [phone] Rachele Mccallum ROTARY KILN OPERATOR Unavailable Reason for Visit * Reason Comments Med Change Request Encounter Details Date Type Department Care Team (Late st Contact Info) Description 11/06/[address] [facility] Family Medicine [address] [place] [address] Jolie Mohamud MD [address] [place] [address] Generalized anxiety disorder Social History [...] any clubs o r organizations such as advent groups, unions, fraternal or athletic groups, or [...] Recorded Patient Health Questionnaire-2 Score 0 07/24/2024 [facility] [place] of Occupat ional Health - Occupational Stress [...] documented as of this encounter Care Teams Ore Digger Relationship Specialty Start Date End Date Jolie Mohamud MD [address] [place] [address] PCP - General Family Medicine 08/11/22 Rachele Mccallum NP [address] [facility] [place] [phone] [facility] 06/13/24 Rachele Mccallum NP [address] [facility] [place] [address] Nurse Practitioner Family Medicine 08/11/22 Anna Pino DO [address] [place] [address] Referring Physician Neurology 05/31/23 documented as of this encounter
--- OUTSIDE RECORDS SUMMARY | 2024-11-18 07:00 | XMS_ITS | Encounter Summary ---
Author Organization [facility] Address [address] [place] [address] Care Team Providers Care Small Engine Specialist Name Role Phone Jolie Mohamud MD Primary Care Provider [phone] Rachele Mccallum SORT LINE WORKER Unavailable [phone] Anna Pino DO Unavailable [phone] Rachele Mccallum SORT LINE WORKER Unavailable Encounter Details Date Type Department Care Team (Late st Contact Info) Description 05/13/2023 [facility] Family [facility] [address] [place] [address] Rachele Mccallum SORT LINE WORKER [address] [place] [address] Social History Tobacco Use Types Packs/Day Years [...] on filedocumented in this encounter Care Teams Small Engine Specialist Relationship Specialty Start Date End Date Jolie Mohamud MD [address] [place] [address] PCP - General Family Medicine 08/11/22 Rachele Mccallum NP [address] [address] PCP - [facility] 06/13/24 Rachele Mccallum NP [address] [facility] [place] [address] Nurse Practitioner Family Medicine 08/11/22 Anna Pino DO [address] [place] [address] Referring Physician Neurology 05/31/23 documented as of this encounter
--- OUTSIDE RECORDS SUMMARY | 2024-11-18 07:00 | XMS_ITS | Encounter Summary ---
Author Organization [facility] Address [address] [place] [address] Care Team Providers Care Laboratory Chemist Name Role Phone Jolie Mohamud MD Primary Care Provider [phone] Rachele Mccallum CHEMICAL WASTE MANAGEMENT TECHNICIAN Unavailable [phone] Anna Pino DO Unavailable [phone] Rachele Mccallum CHEMICAL WASTE MANAGEMENT TECHNICIAN Unavailable Encounter Details Date Type Department Care Team (Late st Contact Info) Description 11/30/2022 Abstract [facility] Family Medicine [address] [place] [address] Jolie Mohamud MD [address] [place] [address] Social History Tobacco Use Types [...] on filedocumented in this encounter Care Teams Laboratory Chemist Relationship Specialty Start Date End Date Jolie Mohamud MD [address] [place] [address] PCP - General Family Medicine 08/11/22 Rachele Mccallum NP [address] [address] PCP - [facility] 06/13/24 Rachele Mccallum NP [address] [facility] [place] [address] Nurse Practitioner Family Medicine 08/11/22 Anna Pino DO [address] [place] [address] Referring Physician Neurology 05/31/23 documented as of this encounter
--- OUTSIDE RECORDS SUMMARY | 2024-11-18 07:00 | XMS_ITS | Encounter Summary ---
Author Organization [facility] Address [address] [place] [address] Care Team Providers Care Fire Protection Fabricator Name Role Phone Jolie Mohamud MD Primary Care Provider [phone] Rachele Mccallum MASTER COOK Unavailable [phone] Anna Pino DO Unavailable [phone] Rachele Mccallum MASTER COOK Unavailable [phone] Encounter Details Date Type Department Care Team (Late st Contact Info) Description 05/12/2023 Abstract [facility] Family Medicine [address] [place] [address] Bambi Contreras NP [address] [place], [place] [id number] Social History Tobacco Use Types Packs/Day Years [...] on filedocumented in this encounter Care Teams Fire Protection Fabricator Relationship Specialty Start Date End Date Jolie Mohamud MD [address] [place] [address] PCP - General Family Medicine 08/11/22 Rachele Mccallum NP [address] [facility] [address] [place] [address] PCP - [facility] 06/13/24 Rachele Mccallum NP 14[address] [facility] [place] [place] [address] Nurse Practitioner Family Medicine 08/11/22 Anna Pino DO [address] [place] [address] Referring Physician Neurology 05/31/23 documented as of this encounter
--- OUTSIDE RECORDS SUMMARY | 2024-11-18 07:01 | XMS_ITS | Encounter Summary ---
Author Organization [facility] tem Address [id number] [place] [address] Care Team Providers Care Radio Board Operator Name Role Phone Jolie Mohamud MD Primary Care Provider [phone] Reason for Visit * Reason Onset Date Comments GENETICS 11/09/2022 CLERICAL Encounter Details Date Type Department Care Team (Late st Contact Info) Description 11/09/2022 Telephone [facility] Division of [facility] - Medical Oncology [address] [place] [address] [facility] [address] [id number] GENETICS (CLERICAL) Social History Tobacco Use Types [...] on filedocumented in this encounter Care Teams Radio Board Operator Relationship Specialty Start Date End Date Jolie Mohamud MD [address] [place] [address] PCP - General Family Medicine 06/06/18 documented as of this encounter
--- OUTSIDE RECORDS SUMMARY | 2024-11-18 07:01 | XMS_ITS | Patient Health Record ---
Author Organization [facility] [place] Address [address] [place] [address] Care Team Providers Care Cd Reactor Operator Name Role Phone None, Unknown or Primary Care Provider Unavailab leora BrasherRajat dougherty Unavailable [phone] Ema Hanson Unavailable [phone] KenKelvin varner Unavailable [phone] Allergies Allergen (clinical drug ingredient) Drug/Non Drug [...] Problem Status W/U Status Risk Notes Problem Urinary incontinence (731291691) Unspecified urinary incontinence (R32) Active confirmed Vital Signs Height 66 in 06/26/2024 Weight 195 lbs 06/26/2024 BMI 31.47 kg/m2 06/26/2024 Procedures Procedure Date Ordered Date Performed Result Body Sit e Urodynamics 05/08/2024 05/08/2024 N/A Cystoscopy in Office 05/08/2024 05/08/2024 N/A Encounters Encounter Location Date Provider Diagnosis Urology [address] [place] [address] 06/26/2024 Rajat Lewis Unspecified urinary incontinence R32 [address] [place] [address] 05/08/2024 Rajat Lewis Unspecified urinary incontinence R32 [address] [place] [address] 06/20/2024 Ema Hanson Unspecified urinary incontinence R32 [...] Date Coverage End Date [employer] [id number] [place] [address] [id number] Lauren Hagan Self - patient is the insured Medical (General) History Medical History History ICD Code arthritis depression Unspecified urinary incontinence R32 Surgical History Surgery Date(Month/Year) bladder sling 2018 ERCP cholecystectomy hysterectomy appendectomy tubal ligation
[2024-11-18 07:24] LABS: Cannabinoid Screen Urine NEGATIVE (NEGATIVE); Methamphetamines Screen Urine NEGATIVE (NEGATIVE); Tricyclic Antidepressant Urine NEGATIVE (NEGATIVE)
== END 2024-11-18 06:56 | disposition home or self-care (01) ==
PROVIDERS: PCP Family Medicine; Visit Provider Nurse Practitioner Family
DX: Z02.83 Encounter for blood-alcohol and blood-drug test (principal)
CPT/HCPCS: 80307

== ENCOUNTER 2025-01-05 10:16 | Outpatient (OUT) | payer BC, SELFPAY ==
--- OUTSIDE RECORDS SUMMARY | 2024-05-01 04:40 | XMS_ITS ---
Author Organization [facility] in [place] Address [address] [place] [address] Care Team Providers Care Canvas Worker Apprentice Name Role Phone None, Unknown or Primary Care Provider Unavailab Rajat Contreras Unavailable [phone] REASON FOR VISIT Self Ref --urinary incontinence--pt previously seen by at [facility] Encounters Encounter Location Date Provider Diagnosis Urology [address] [place] [address] 05/01/2024 Rajat Lewis Plan Of Treatment No Information Progress Notes * Abena HAGANOB:[birth year] (54 yo F)Acc No.[id number]:05/01/2024 UNLOCKED PROGRESS NOTE Progress Note Patient: Lauren CONTRERAS :?[facility]at Lewis [facility]1970???Age:54 Y ???Sex:FemaleDate:05/01/2024Phone:[phone]:[address] [place], [place] [address]Pcp:Unknown or None Subjective: * Chief Complaints: * 1 . Self Ref --urinary incontinence--pt previously seen by at [facility]. * Medical History: Objective: * Vitals: Assessment: Plan: * Treatment: * * Electronic signature of Rajat Lewis MD, [id number] on 01/05/2025 at 10:20 AM EDT Sign off status: PendingVisit Status:?R/S (Rescheduled) * Provider: Ming Lewis MD Date: 0 05/01/2024 Generated for Printing/Faxing/eTransmitting on:?01/05/2025 10:20 AM EDT
--- OUTSIDE RECORDS SUMMARY | 2024-05-24 04:40 | XMS_ITS ---
Author Organization The [facility] in [place] Address [address] [place] [address] Care Team Providers Care Casing In Line Feeder Name Role Phone None, Unknown or Primary Care Provider Unavailab Ema Barksdale Unavailable [phone] REASON FOR VISIT gave patient urod packet Encounters Encounter Location Date Provider Diagnosis Urology [address] [place] [address] 05/24/2024 Ema Hanson Unspecified urinary incontinence R32 Assessments Encounter Date Diagnosis (ICD Code) Assessment Notes Treatment Notes Treatment Clinical Notes Section Notes 05/24/2024 Unspecified urinary incontinence (ICD-10 - R32) Urodynamics Study: Uroflow: Pt voided: Max flow: PVR: Cystometerogram: First sensation: First desire: Strong desire: Capacity: Leaks?: Stress or Urge? Uninhibited contractions? Pt voided: Max flow: Max Pdet: PVR: Obstruction?: Interpretation: Plan Of Treatment Treatment Notes Assessment Notes Unspecified urinary incontinence Urodynamics Study: Uroflow: Pt voided: Max flow: PVR: Cystometerogram: First sensation: First desire: Strong desire: Capacity: Leaks?: Stress or Urge? Uninhibited contractions? Pt voided: Max flow: Max Pdet: PVR: Obstruction?: Interpretation: Next Appt Details Follow Up: 05/29/24 Dr. Lewis Cystoscopy, Reason: Progress Notes * Abena HAGANOB:[birth year] (54 yo F)Acc No.[id number]:05/24/2024 UNLOCKED PROGRESS NOTE Patient:Lauren ANNE :?Ema Hanson NP-CDOB:1970 ???Age:54 Y???Sex:FemaleDate:05/24/2024Phone:[phone]:JAYSON CASTRO, [id number]:Unknown or None Subjective: * Chief Complaints: * 1 . Gave patient urod packet kp. * HPI: ???Urology General:? 05/24/24 URO/Risa 05/08/24 Dr. Lewis New patient OV Note: here for urinary incontinence. had sling in 2019 by another urologist. now has intermittent leaking.? no dysuria, no hematuria. no pain good stream, feels that she empties has been on oxybutinin and that helped with some of the urgency. * Medical History: Objective: * Vitals: Assessment: * Assessment: 1.?Unspecified urinary incontinence - R32 (Primary)??? Plan: * Treatment: Notes: Urodynamics Study: Uroflow: Pt voided: Max flow: PVR: Cystometerogram: First sensation: First desire: Strong desire: Capacity: Leaks?: Stress or Urge? Uninhibited contractions? Pt voided: Max flow: Max Pdet: PVR: Obstruction?: Interpretation: ?? * Follow Up: Dr. Lewis Cystoscopy * * Electronic signature of Ema Hanson NP, [id number] on 01/05/2025 at 10:19 AM EDTSign off status: PendingVisit Status:?R/S (Rescheduled) * Provider: UDAY Faust Date: 0 05/24/2024 Generated for Printing/Faxing/eTransmitting on:?01/05/2025 10:19 AM EDT
--- OUTSIDE RECORDS SUMMARY | 2024-05-29 06:00 | XMS_ITS ---
Author Organization [facility] in [place] Address [address] [place] [address] Care Team Providers Care Mentally Retarded Teacher Name Role Phone None, Unknown or Primary Care Provider Unavailab Rajat Contreras [phone] Encounters Encounter Location Date Provider Diagnosis Urology [address] [place] [address] 05/29/2024 Rajat Lewis Plan Of Treatment No Information Progress Notes * Abena HAGANOB:[birth year] (54 yo F)Acc No.[id number]:05/29/2024 UNLOCKED PROGRESS NOTE 0 Patient: Lauren CONTRERAS :?[facility]1970???Age:54 Y ???Sex:FemaleDate:05/29/2024Phone:[phone]:[address] [place], [place] [address]Pcp:Unknown or None Subjective: * Chief Complaints: * * Medical History: Objective: * Vitals: Assessment: Plan: * Treatment: * * Electronic signature of Rajat Lewis MD, [id number] on 01/05/2025 at 10:20 AM EDT Sign off status: PendingVisit Status:?R/S (Rescheduled) * Provider: Ming Lewis MD Date: 0 05/29/2024 Generated for Printing/Faxing/eTransmitting on:?01/05/2025 10:20 AM EDT
--- OUTSIDE RECORDS SUMMARY | 2024-08-28 06:30 | XMS_ITS ---
Author Organization [facility] [place] Address [address] [place] [address] Care Team Providers Care Volunteer Services Manager Name Role Phone None, Unknown or Primary Care Provider Unavailab Kelvin Elder Unavailable [phone] REASON FOR VISIT 2 mos Encounters Encounter Location Date Provider Diagnosis Urology [address] [place] [address] 08/28/2024 Kelvin Rogers Plan Of Treatment No Information Progress Notes * BENTLEY AbenaOB:[birth year] (54 yo F)Acc No.[id number]:08/28/2024 UNLOCKED PROGRESS NOTE Patient:Lauren ANNE :?Kelvin Rogers NPDOB:1970???Age:54 Y ???Sex:FemaleDate:08/28/2024Phone:[phone]:[address] [place], [place] [address]Pcp:Unknown or None Subjective: * Chief Complaints: * 1 . 2 mos. * Medical History: Objective: * Vitals: Assessment: Plan: * Treatment: * * Electronic signature of Kelvin Rogers NP on 01/05/2025 at 10:20 AM EDTSign off status: PendingVisit Status:?CANCSMS (CANCSMS) * Provider: Neil Rogers NP Date: 0 08/28/2024 Generated for Printing/Faxing/eTransmitting on:?01/05/2025 10:20 AM EDT
--- OUTSIDE RECORDS SUMMARY | 2025-01-05 10:21 | XMS_ITS | Encounter Summary ---
Author Organization [facility] Address [address] [place] [address] Care Team Providers Care Cnmt Name Role Phone Jolie Mohamud MD Primary Care Provider [phone] Rachele Mccallum MATERNITY NURSE Unavailable [phone] Anna Pino DO Unavailable [phone] Rachele Mccallum MATERNITY NURSE Unavailable Encounter Details DateTypeDepartmentCare Team (Latest Contact Info)Qvkwvnrnuvt69/23/2025Orders Only [facility] Family Medicine [address] [place] [address] Jolie Luna MA [address] [place], [place] [phone] Screening mammogram for breast cancer (Primary Dx) Social History Tobacco UseTypesPacks/DayYears UsedDateSmoking Tobacco: FormerCigarettes0.526.5 09/13/1987 - 03/29/2014Smokeless Tobacco: Never Comments:Last smoked: 5-10 y ears. Moderate cigarette smoker (10-19 cigs/day) Alcohol UseStandard Drinks/WeekCommentsNot Currently2 (1 standard drink = 0.6 oz pure alcohol)Caffeine intake: 340mg dailySocial Connection and Isolation Panel AnswerDate RecordedIn a typical week, how many times do you talk on the phone with family, friends, or neighbors?Once a week05/23/2023How often do you get together with friends or relatives?Once a week05/23/2023How often do you attend mandaeism or shinto services?More than 4 times per year05/23/2023o you belong to any clubs or organizations such as mandaeism groups, unions, fraternal or athletic groups, or school groups?Yes05/23/2023How often do you attend meetings of the clubs or organizations you belong to?More than 4 times per year05/23/2023 Are you , , , , never , or living with a partner?Cmvftgm9905/23/2023UDIT-CAnswerDate RecordedQ1: How often do you have a drink containing alcohol?2-3 times a week05/23/2023Q2: How many drinks containing alcohol do you have on a typical day when you are drinking?1 or 2 05/23/2023Q3: How often do you have six or more drinks on one occasion?Never 05/23/2023Overall Financial Resource Strain (CARDIA)AnswerDate RecordedHow hard is it for you to pay for the very basics like food, housing, medical care, and heating?Not hard at all05/23/2023HQ-2AnswerDate RecordedPatient Health Questionnaire-2 [id number] point medical center [place] of Occupational Health - Occupational Stress QuestionnaireAnswerDate RecordedDo you feel stress - tense, restless, nervous, or anxious, or unable to sleep at night because yourmind is troubled all the time - these days?To some mtbhoi4405/23/2023Exercise Vital Sign AnswerDate RecordedOn average, how many days per week do you engage in moderate to strenuous exercise (like a brisk walk)?4 days05/23/2023On average, how many minutes do you engage in exercise at this level?40 min05/23/2023Hunger Vital SignAnswerDate RecordedWithin the past 12 months, you worried that your food would run out before you got the money to buymore.Never true05/23/2023Within the past 12 months, the food you bought just didn't last and you didn't have money to get more.Never true03/10/2024PRAPARE - TransportationAnswerDate RecordedIn the past 12 months, has lack of transportation kept you from medical appointments or from getting medications?No05/23/2023In the past 12 months, has lack of transportation kept you from meetings, work, or from getting things needed for daily living?No05/23/2023Housing Stability Vital SignAnswerDate RecordedIn the last 12 months, was there a time when you were not able to pay the mortgage or rent on time?No05/23/2023In the last 12 months, how many places have you lived?In the last 12 months, was there a time when you did not have a steady place to sleep or slept in ashelter (including now)?No 4CommentsUnknownSex and Gender InformationValueDate RecordedSex Assigned at BirthNot on fileLegal RpoPgtzic68/15/2023 6:47 PM EDTGender Identity Not on fileSexual OrientationNot on filedocumented as of this encounter Progress Notes * Jolie Luna MA - 01/04/2025 2:20 PM EDT Subjective ?Quick Links Last Note in Specialty Snapshot Edit RFV/CC Edit Screenings Current Meds Patient ID: Lauren Hagan is a 54 y.o. female who presents for No chief complaint on file.. HPI History of Present Illness ?Quick Review Review Full History Meds - Current Medications[1] --- PMH - Allergic Anxiety Arthritis COVID-19 CTS (carpal tunnel syndrome) Depression Gastritis GERD (gastroesophageal reflux disease) Obesity (HHS-HCC) Trigger finger Urinary incontinence Objective ?Quick Links Add Vitals Timeline (Adult) Labs Imaging Results Review Trend Vitals ?? Avoid pulling in long tables of results. Comment on relevant results to support your medical decision making. There were no vitals taken for this visit. Physical Exam Physical Exam ?Quick Links Full Problem List Chronic Pain GI Assessment & Plan Screening mammogram for breast cancer Orders: Bilateral screening mammogram with tomosynthesis; Future Assessment & Plan [1] Xhwomkrqy-Lzksrrfockw-Fpn D (Glucosamine Complex -Boswellia) tablet busPIRone (Buspar) 10 MG tablet celecoxib (CeleBREX) 200 MG capsule ferrous sulfate 325 (65 Fe) MG EC tablet Fezolinetant (Veozah) 45 MG tablet levocetirizine (Xyzal) 5 MG tablet LORazepam (Ativan) 0.5 MG tablet mirabegron ER (Myrbetriq) 50 MG 24 hr tablet Multiple Vitamin (MULTIVITAMIN ADULT PO) Multiple Vitamins-Minerals (HAIR VITAMINS PO) omeprazole (PriLOSEC) [address] capsule Vit-DSS-Fe Cbn-FA ( AD PO) saccharomyces boulardii (Florastor) 250 MG capsule sertraline (Zoloft) 50 MG tablet Tirzepatide-Weight Management (Zepbound) 12.5 MG/0.5ML solution auto-injector Vitamin E (E-400) 268 MG (400 UNIT) capsule documented in this encounter Plan of Treatment DateTypeDepartmentCare Team (Latest Contact Info)Rjwhdiaotrd29/17/2025 4:00 PM ESTAncillary Procedure [facility] [address] [facility] [address] [place] [address] NameTypePriorityAssociated DiagnosesOrder ScheduleBilateral screening mammogram with tomosynthesisImagingRoutine Screening mammogram for breast cancer Expected: 01/04/2025, Expires: 03/06/2026documented as of this encounter Goals GoalPatient Goal TypeAssociated ProblemsRecent ProgressPatient-Stated?Author Help patient manage antidepressant medication Care PlanPatient on antidepressant monitoring Rachele Isaacs NP documented as of this encounter Visit Diagnoses Diagnosis Screening mammogram for breast cancer- Primary documented in this encounter Additional Health Concerns Active ProblemsNoted DateDiagnosed DatePatient on antidepressant monitoring plan 07/24/2024ssessmentNoted TimePHQ-9 Depression Total Score: 6:00 PM EDTdocumented as of this encounter Care Teams Team MemberRelationshipSpecialtyStart DateEnd Date Jolie Mohamud MD [address] [place] [address] PCP - GeneralFamily Medicine08/11/22 [facility] [address] [place] [address] PCP - [facility]06/13/24 [facility] [address] [place] [address] Nurse PractitionerFawily Medicine08/11/22 Anna Pino DO [address] [place] [address] Referring PhysicianNeurology05/31/23documented as of this encounter
--- OUTSIDE RECORDS SUMMARY | 2025-01-05 10:21 | XMS_ITS | Clinical Summary ---
Author Organization [facility] Healthcare Address [address] [place] [address] Care Team Providers Care Wire Welder Name Role Phone Jolie Mohamud MD Primary Care Provider [phone] Rachele Mccallum ART CRITIC Unavailable [phone] Anna Pino DO Unavailable [phone] Rachele Mccallum ART CRITIC Unavailable Allergies Active AllergyReactionsCriticalityNoted DateCommentsAmoxicillin-Pot Clavulanate Uameamz5610/28/2021 Other Reaction(s): yeast infection GchyuXzjyCzb68/16/2022 Medications MedicationSigDispense QuantityRefillsLast FilledStart DateEnd DateStatus Multiple Vitamin (MULTIVITAMIN ADULT PO) MultivitaminActive levocetirizine (Xyzal) 5 MG tablet Indications:Postnasal dripTAKE 1 TABLET BY MOUTH EVERY DAY IN THE EVENING FOR 90 DAYS 90 tablet 4Active Hjwikpiyt-Dxmdqeodqbc-Dut D (Glucosamine Complex -Boswellia) tablet Take by mouth Daily 2 pillsActive saccharomyces boulardii (Florastor) 250 MG capsule Take 250 mg by mouth in the morning and 250 mg before bedtime.Active mirabegron ER (Myrbetriq) 50 MG 24 hr tablet Take 50 mg by mouth Daily5Active Vitamin E (E-400) 268 MG (400 UNIT) capsule Take 268 capsules by mouth DailyActive LORazepam (Ativan) 0.5 MG tablet Indications:Generalized anxiety disorderTake 1 tablet (0.5 mg) by mouth Daily as needed for anxiety for up to 6 days 6 tablet 5Active omeprazole (PriLOSEC) [address] capsule Indications: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TAKE 1 CAPSULE (40 MG) BY MOUTH EVERY 12 (TWELVE) HOURS 180 capsule 5Active Vit-DSS-Fe Cbn-FA ( AD PO) Take by mouthActive Multiple Vitamins-Minerals (HAIR VITAMINS PO) Take by mouthActive sertraline (Zoloft) 50 MG tablet Indications:Generalized anxiety disorderTAKE 1 TABLET BY MOUTH EVERY DAY 90 tablet 5Active busPIRone (Buspar) 10 MG tablet Indications:Generalized anxiety disorder,Recurrent major depressive disorder, in partial remissionTake 2 tablets (20 mg) by mouth in the morning and 2 tablets (20 mg) before bedtime. 360 tablet 5Active celecoxib (CeleBREX) 200 MG capsule Indications:Spondylosis without myelopathy or radiculopathy, lumbar regionTAKE 1 CAPSULE BY MOUTH EVERY MORNING 90 capsule 5Active ferrous sulfate 325 (65 Fe) MG EC tablet Indications:Iron deficiencyTake 1 tablet (325 mg) by mouth in the morning. Take with meals. Do not crush, chew, or split. 90 tablet 5Active Fezolinetant (Veozah) 45 MG tablet Indications:Hot flashes,Menopausal vasomotor syndromeTake 1 tablet by mouth Daily 90 tablet 5Active Tirzepatide-Weight Management (Zepbound) 12.5 MG/0.5ML solution auto-injector Indications:Obstructive sleep apnea,Morbid (severe) obesity due to excess calories ([facility])Inject 12.5 mg under the skin 1 (one) time per week 6 mL 5Active Tirzepatide-Weight Management (Zepbound) 15 MG/0.5ML solution auto-injector Indications:Obesity (BMI 30-39.9)Inject 15 mg under the skin 1 (one) time per week 6 mL 9/Discontinued(Alternate therapy) celecoxib (CeleBREX) 200 MG capsule Indications:Spondylosis without myelopathy or radiculopathy, lumbar regionTAKE 1 CAPSULE BY MOUTH EVERY MORNING 30 capsule 509/Discontinued Semaglutide-Weight Management (Wegovy) 0.25 MG/0.5ML solution auto-injector Indications:Obesity (BMI 30-39.9)Inject 0.25 mg under the skin 1 (one) time per week 2 mL /06/2024Discontinued(Alternate therapy) Active Problems ProblemNoted DateDiagnosed DateUrinary emxzvvrsxuwf98/30/2025rthritis of both knees07/31/2022rthritis of lumbar spine07/31/2022arrett's rwuvkoafs64/19/2023 Qghedfs8107/31/2022 Assessment & Plan (12/12/2024 1:36 PM EDT): Orders: TSH W/REFLEX TO FT4; Future Ferritin; Future Hemoglobin A1c; Future Comprehensive metabolic panel; Future Iron + transferrin + TIBC; Future Vitamin D 25 hydroxy; Future Vitamin B12; Future Gastroesophageal reflux disease without gaflresddnl15/19/2023eneralized anxiety ouxwspqo43/19/2023Morbid (severe) obesity due to excess svanpomu99/19/2023 Obstructive sleep apnea07/31/2022Recurrent major depressive disorder, in partial agwesztnf09/19/2023Urge incontinence of urine07/31/2022ody mass index (BMI) 37.0-37.9, adult02/14/2021Mixed anxiety depressive pooipcam30/03/2021imple dpbwzvv0702/14/2021ecurrent major depressive disorder, in jpkvetngs91/04/2021/P laparoscopic uorcxzcfpckfmgo35/23/2020Ex-blqnfc4804/05/2019Hyperbilirubinemia 04/05/2019Adjustment furbwehr75/19/2019Stress incontinence (female) (male) 09/12/2018Chronic pain06/14/20181855Ijhjfgw59/21/2019Stress incontinence of urine 01/28/2017H/O: cnfosrbjnjxm38/26/2016 Resolved Problems ProblemNoted DateDiagnosed DateResolved DateAtopic cebixvwebt65/19/2023 12/27/2023ischarge from mlvwoh62/History of hysterectomy Increased prolactin levelOther chronic painectal xgeedjuc04Situational stress ain in limbTransaminitis04/05/2019 12/27/2023holelithiasis, common bile ductlass 2 obesity Maxillary sbbkbuqml61Gastroesophageal reflux disease with kowcixtawfk27 Encounters DateTypeDepartmentCare QlyhFbfsnfhnpfv18/23/2025Orders Only [address] [place] [phone] Jolie Luna MA Screening mammogram for breast cancer (Primary Dx)01/04/2025Telephone [address] [place] [phone] Jolie Mohamud MD 12/16/2024Refill [address] [place] [phone] Bambi Contreras NP Obstructive sleep apnea; Morbid (severe) obesity due to excess calories ([facility])12/16/2024Refill [address] [place] [phone] Bambi Contreras NP Obstructive sleep apnea; Morbid (severe) obesity due to excess calories ([facility])12/16/2024Orders Only [address] [facility] [place] [phone] Bambi Contreras NP Obstructive sleep apnea (Primary Dx); Morbid (severe) obesity due to excess calories ([facility])12/15/2024bstract [address] [place] [phone] Bambi Contreras NP 12/15/2024Telephone [address] [facility] [phone] Jolie Luna MA 12/13/2024Telephone [address] [facility] [phone] Jolie Mohamud MD 12/13/2024Orders Only [address] [place] [phone] Bambi Contreras NP Hot flashes (Primary Dx); Menopausal vasomotor vezeowrg02/01/2025Results Follow-Up [address] [facility] [phone] Bambi Contreras NP TSH W/REFLEX TO FT4, Hemoglobin A1c, Comprehensive metabolic panel, Additional followed-up results: 12:30 PM EDTOffice Visit [address] [place] [phone] Bambi Contreras NP Fatigue, unspecified type (Primary Dx); Obesity (BMI 30-39.9); Obstructive sleep apnea (adult) (pediatric); Hot flashes; Igcjpuvzept27/30/2025amboo flowsheet [address] [facility] [place] [phone] Bambi Contreras NP 12/12/20240152Xglatr10/25/2025Refill [address] [place] [phone] Jolie Mohamud MD Spondylosis without myelopathy or radiculopathy, lumbar ttbnrj2511/18/2024Results Follow-Up [address] [place] [phone] Bambi Contreras NP URINE DRUG SCREEN W/CONFIRM ([facility])11/18/2024linisync Result Encounter [facility] External Department Unsolicited Provider, Generic External Data 11/17/2024Telephone [facility] [address] [facility] [place] [place] [phone] Jolie Mohamud MD 11/06/2024Orders Only [facility] [address] [facility] [place] [phone] Bambi Contreras NP Acute cystitis without hematuria (Primary Dx)11/06/2024Refill [facility] [address] [facility] [place] [place] [phone] Sabina Krueger NP Generalized anxiety disorder ; Recurrent major depressive disorder, in partial ijqtwbahf08/25/2025Refill [facility] [address] [facility] [place] [place] [phone] Jolie Mohamud MD Generalized anxiety gxcsshdu04/04/2025linisync Result Encounter NOM External Department Unsolicited Provider, Generic External Data 10/13/2024Orders Only [facility] [address] [facility] [place] [place] [phone] Bambi Contreras NP Immunity status testing (Primary Dx); Encounter for school history and physical pqljtnyrusm73/29/2025Refill [facility] [address] [facility] [place] [phone] Jolie Mohamud MD Generalized anxiety disorderfrom Last 3 Months Immunizations ImmunizationAdministration DatesNext [facility] [place]24Influenza, High Dose Seasonal, Preservative Free04/05/2019,04/04/2019Influenza, injectable, MDCK, preservative free, ddesudxchbzf91/06/2021Influenza, injectable, quadrivalent 01/27/2018Influenza, injectable, quadrivalent, preservative free12/10/2022, 12/29/2021,12/18/2020,12/29/2019,04/05/2019,01/27/2018Influenza, seasonal, injectable, preservative free12/23/2023Influenza, seasonal, intradermal, preservative free12/21/2014MMR09/05/2024Tdap105/04/2015Zoster, Recombinant 03/24/2024,12/23/2023 Family History Medical HistoryRelationNameCommentsArthritisFatherTedCOPDFatherTedDiabetesFather TedEarly natural deathFatherTedHeart failureFatherTedHypertensionFatherTed Pulmonary embolismFatherTedParkinsonismMaternal GrandfatherAnxiety disorder MotherDianeArthritisMotherDianeCOPDMotherDianeCancerMotherDianeDepressionMother DianeDiabetesMotherDianeParkinsonismMotherDianeStrokeMotherDianetriple negative breast cancerMotherDianeEarly natural deathPaternal GrandfatherRayRelationName StatusCommentsDaughterAlive2 daughtersFatherTedDeceasedMaternal Grandfather MotherDianeDeceasedPaternal GrandfatherRaySonDeceased Social History Tobacco UseTypesPacks/DayYears UsedDateSmoking Tobacco: FormerCigarettes0.526.5 09/13/1987 - 03/29/2014Smokeless Tobacco: Never Tobacco Cessation:Counseling Given: Not Answered Comments:Last smoked: 5-10 years. Moderate cigarette smoker (10-19 cigs/day) Alcohol UseStandard Drinks/WeekCommentsNot Currently2 (1 standard drink = 0.6 oz pure alcohol)Caffeine intake: 340mg dailySocial Connection and Isolation Panel AnswerDate RecordedIn a typical week, how many times do you talk on the phone with family, friends, or neighbors?Once a week05/23/2023How often do you get together with friends or relatives?Once a week05/23/2023How often do you attend spiritism or judaism services?More than 4 times per year05/23/2023o you belong to any clubs or organizations such as spiritism groups, unions, fraternal or athletic groups, or school groups?Yes05/23/2023How often do you attend meetings of the clubs or organizations you belong to?More than 4 times per year05/23/2023 Are you , , , , never , or living with a partner?Tefmwbk48/10/2024AUDIT-CAnswerDate RecordedQ1: How often do you have a [...] heating?Not hard at all05/23/2023HQ-2AnswerDate RecordedPatient Health Questionnaire-2 Kknzb412Fin[facility] [place] of Occup[facility] - Occupational Stress QuestionnaireAnswerDate RecordedDo you feel stress - tense, restless, nervous, or anxious, or unable to sleep at night because yourmind is troubled all the time - these days?To some bymsec6805/23/2023Exercise Vital Sign AnswerDate RecordedOn average, how many [...] you didn't have money to get more.Never true05/23/2023RAPARE - TransportationAnswerDate RecordedIn the past 12 months, [...] InformationValueDate RecordedSex Assigned at BirthNot on fileLegal AbsAoseki14/15/2023 6:47 PM EDTGender Identity Not on fileSexual OrientationNot on file Last Filed Vital Signs Vital SignReadingTime TakenCommentsBlood Qjmsmcon942/7209 12:25 PM EDT Rwypc362312/12/2024 12:25 PM LLZDvgiqjfivrq86.3 ??C (97.3 ??F)09/19/2024 6:23 PM EDTRespiratory Bzhy405908/28/2024 4:39 PM EDTOxygen Nuvpqfuzxy11%12/12/2024 12:25 PM EDTInhaled Oxygen Concentration--Acjrkn78.6 kg (182 lb)12/12/2024 12:25 PM UGIVcellz343.1 cm (5' 5 )08/28/2024 4:39 PM EDTBody Mass Index30.29008/28/2024 4:39 PM EDT Plan of Treatment DateTypeDepartmentCare Team (Latest Contact Info)Rbqqnmhvagt11/17/2025 4:00 PM ESTAncillary Procedure [facility] [address] [facility] [address] [place] [phone] Health MaintenanceDue DateLast DoneCommentsCT Vikbcrtfeyii1972Colonoscopy 1972FIT1972FOBT1972 8956Tqvpthtduczsv1972Influenza Vaccine (#1), 12/10/2022, 12/29/2021, Additional history exists Dcwekquys59, 12/27/2023, 10/23/2022, Additional history exists Colorectal Cancer Duxtcmzoq70/12/2026FIT-DNA Goals GoalPatient Goal TypeAssociated ProblemsRecent ProgressPatient-Stated?Author Help patient manage antidepressant medication Care PlanPatient on antidepressant monitoring Rachele Isaacs NP Procedures Procedure NamePriorityDate/TimeAssociated DiagnosisCommentsVITAMIN Y90Wwnifup 12/12/2024 12:48 PM EDT Fatigue, unspecified type VITAMIN D 25 HYDROXY BAYVXRmnhima00/30/2025 12:48 PM EDT Fatigue, unspecified type Obesity (BMI 30-39.9) IRON + TRANSFERRIN + HTGRDsaiely17/30/2025 12:48 PM EDT Fatigue, unspecified type COMPREHENSIVE METABOLIC MECLCDjurvmo94/30/2025 12:48 PM EDT Fatigue, unspecified type Prediabetes HEMOGLOBIN F4OUpiuvif66/30/2025 12:48 PM EDT Fatigue, unspecified type Obesity (BMI 30-39.9) Prediabetes TSH W/REFLEX TO MO8Ukreisg41/30/2025 12:48 PM EDT Fatigue, unspecified type Obesity (BMI 30-39.9) URINE DRUG SCREEN W/CONFIRM ([facility])Ppqqnwl4411/18/2024 9:51 AM EDT Encounter for drug screening [facility] DRUG SCREEN RAPID (URINE)Hfgsntv8411/18/2024 7:09 AM EDT MEASLES/MUMPS/RUBELLA XIKSQQLLShdnhxe47/04/2025 7:03 AM EDT ALL HEPATITIS B SURFACE DYEuorahr36/04/2025 7:03 AM EDT BI MAMMOGRAM DIAGNOSTIC TOMOSYNTHESIS HRTFRKuvrqci71/16/2024 2:22 PM EDT Abnormal mammogram of right breast LAB COLOGUARD?? COLON CANCER CBVXESRixvwhi31/12/2023 1:23 PM EDT Screening for colon cancer from Last 3 Months or Most Recently Relevant to Health Maintenance Results * (ABNORMAL) Iron + transferrin + TIBC (12/12/2024 12:48 PM EDT)ComponentValue Ref RangeTest MethodAnalysis TimePerformed AtPathologist SignatureIRON, TOTAL 62447 - 160 mcg/dLQUESTIRON BINDING FACFRHNR834487 - 450 mcg/dL (calc)QUEST% SOMOQMCZCR0522 - 45 % (calc)HVVIFZOQKPPME68(L)16 - 232 ng/mLQUESTSpecimen (Source)Anatomical Location / LateralityCollection Method / VolumeCollection TimeReceived TimeBloodVenous blood specimen / Loubqrq1312/12/2024 12:48 PM EDT 12/12/2024 12:49 PM EDT Narrative Resulting Agency Comment Performing Organization Information ?Site ID: QPT ?Name: [facility] ?Address: [address] [place], [place] [address]sandeep Velazquez, [address] [place] [phone] ?Director: Nithin Wasserman MD Authorizing ProviderResult TypeResult StatusSara Diane NPLAB BLOOD ORDERABLES Final ResultPerforming OrganizationAddressCity/State/[facility] CodePhone Number [facility] * TSH W/REFLEX TO FT4 (12/12/2024 12:48 PM EDT)ComponentValueRef RangeTest MethodAnalysis TimePerformed AtPathologist SignatureTSH W/REFLEX TO FT40.88 mIU/LQUESTComment: ?Reference Range ? > or = 20 Years 0.40-4.50 ? Ranges ?First trimester ?0.26-2.66 ?Second trimester ?? 0.55-2.73 ?Third trimester ?0.43-2.91 Specimen (Source)Anatomical Location / LateralityCollection Method / Volume Collection TimeReceived Time12/12/2024 12:48 PM EDT12/12/2024 12:49 PM EDT Narrative Resulting Agency Comment Performing Organization Information ?Site ID: QPT ?Name: [facility] ?Address: [facility] Miguel Ángel Velazquez, [address] [place] [phone] ?Director: Nithin Wasserman MD Authorizing ProviderResult TypeResult StatusSaradeepali Contreras NPLAB BLOOD ORDERABLES Final ResultPerforming OrganizationAddressCity/State/ZIP CodePhone Number [facility] * Vitamin D 25 hydroxy (12/12/2024 12:48 PM EDT)ComponentValueRef RangeTest MethodAnalysis TimePerformed AtPathologist SignatureVITAMIN D,25-OH,TOTAL,IA33 30 - 100 ng/mLQUESTComment: Vitamin D Status ? 25-OH Vitamin D: Deficiency: <20 ng/mL Insufficiency: ? 20 - 29 ng/mL Optimal: > or = 30 ng/mL For 25-OH Vitamin D testing on patients on D2-supplementation and patients for whom quantitation of D2 and D3 fractions is required, the QuestAssureD(TM) 25-OH VIT D, (D2,D3), LC/MS/MS is recommended: order code 58947 (patients >2yrs). See Note 1 Note 1 For additional information, please refer to http://education.TrustRadius.RockYou/faq/ESV249 (This link is being provided for informational/ educational purposes only.) Specimen (Source)Anatomical Location / LateralityCollection Method / Volume Collection TimeReceived TimeBloodVenous blood specimen / Knzxfmn7512/12/2024 12:48 PM EDT12/12/2024 12:49 PM EDT Narrative Resulting Agency Comment Performing Organization Information ?Site ID: QPT ?Name: [facility] ?Address: [address] [place] [address], [address] [place] [phone] ?Director: Nihtin Wasserman MD Authorizing ProviderResult TypeResult StatusSalizeth Contreras NPLAB BLOOD ORDERABLES Final ResultPerforming OrganizationAddressCity/State/ZIP CodePhone Number [facility] * Hemoglobin A1c (12/12/2024 12:48 PM EDT)ComponentValueRef RangeTest Method Analysis TimePerformed AtPathologist SignatureHemoglobin A1C5.0<5.7 %QUEST Comment: For the purpose of screening for the presence of diabetes: <5.7% Consistent with the absence of diabetes 5.7-6.4% ?Consistent with increased risk for diabetes ?(prediabetes) > or =6.5% Consistent with diabetes This assay result is consistent with a decreased risk of diabetes. Currently, no consensus exists regarding use of hemoglobin A1c for diagnosis of diabetes in children. According to [place] [employer] Association (ADA) guidelines, hemoglobin A1c <7.0% represents optimal control in non- diabetic patients. Different metrics may apply to specific patient populations. Standards of Medical Care in Diabetes(ADA). Specimen (Source)Anatomical Location / LateralityCollection Method / Volume Collection TimeReceived TimeBloodVenous blood specimen / Zyhhrlp3212/12/2024 12:48 PM EDT12/12/2024 12:49 PM EDT Narrative Resulting Agency Comment Performing Organization Information ?Site ID: QPT ?Name: [facility] ?Address: [address] [place] [address], [address] [place] [address] ?Director: Nithin Wasserman MD Authorizing ProviderResult TypeResult StatusSaraMovetisLAB BLOOD ORDERABLES Final ResultPerforming OrganizationAddressCity/State/ZIP CodePhone Number [facility] * Vitamin B12 (12/12/2024 12:48 PM EDT)ComponentValueRef RangeTest Method Analysis TimePerformed AtPathologist SignatureVITAMIN B121,494693 - 1,100 pg/mLQUESTSpecimen (Source)Anatomical Location / LateralityCollection Method / VolumeCollection TimeReceived TimeBloodVenous blood specimen / Unknown 12/12/2024 12:48 PM EDT12/12/2024 12:49 PM EDT Narrative Resulting Agency Comment Performing Organization Information ?Site ID: QPT ?Name: [facility] ?Address: [address] [place] [address], [address] [place] [phone] ?Director: Nithin Wasserman MD Authorizing ProviderResult TypeResult StatusSaraSyncing.Net NPLAB BLOOD ORDERABLES Final ResultPerforming OrganizationAddressCity/State/ZIP CodePhone Number [facility] * Comprehensive metabolic panel (12/12/2024 12:48 PM EDT)ComponentValueRef Range Test MethodAnalysis TimePerformed AtPathologist UmutqwhncYnbrxfa6493 - 99 mg/dLQUESTComment: ? Fasting reference interval EQT116 - 25 mg/dLQUESTCreatinine0.940.50 - 1.03 mg/uNFGSMYJRJC93> OR = 60 mL/min/1.19o0MTXQVHAZ/CREATININE RATIOSEE NOTE:6 - (calc)QUESTComment: ?? Not Reported: BUN and Creatinine are within ?? reference range. ? Fvgxzb492621 - 146 mmol/LQUESTPotassium, Bld4.03.5 - 5.3 mmol/PWLLPZVeyyjcol082 98 - 110 mmol/LQUESTCarbon Qiefvez9281 - 32 mmol/LQUESTCalcium9.28.6 - 10.4 mg/dLQUESTPROTEIN, TOTAL6.76.1 - 8.1 g/dLQUESTALBUMIN4.33.6 - 5.1 g/dLQUEST GLOBULIN2.41.9 - 3.7 g/dL (calc)QUESTALBUMIN/GLOBULIN RATIO1.81.0 - 2.5 (calc) QUESTBILIRUBIN, TOTAL0.70.2 - 1.2 mg/dLQUESTALKALINE KCNWFHVIZUS6641 - 153 U/L QLPWPKLO0511 - 35 U/NZFIRLOTH961 - 29 U/LQUESTSpecimen (Source)Anatomical Location / LateralityCollection Method / VolumeCollection TimeReceived TimeBlood Venous blood specimen / Wkrjpep0712/12/2024 12:48 PM EDT12/12/2024 12:49 PM EDT Narrative Resulting Agency Comment Performing Organization Information ?Site ID: QPT ?Name: [facility] ?Address: [address] [place] [address], [address] [place] [phone] ?Director: Nithin Wasserman MD Authorizing ProviderResult TypeResult Jay POWERS BLOOD ORDERABLES Final ResultPerforming OrganizationAddressCity/State/ZIP CodePhone Number [facility] * URINE DRUG SCREEN W/CONFIRM ([facility]) (11/18/2024 9:51 AM EDT) Narrative Authorizing ProviderResult TypeResult Jay Garayfer NPLAB BLOOD ORDERABLES Final ResultPerforming OrganizationAddressCity/State/ZIP CodePhone Number EXTERNAL LAB * [facility] DRUG SCREEN RAPID (URINE) (11/18/2024 7:09 AM EDT)ComponentValueRef Range Test MethodAnalysis TimePerformed AtPathologist SignatureCANNABINOID SCREEN URINENEGATIVENEGATIVETBHPHENCYCLIDINE SCREEN URINENEGATIVENEGATIVETBHCOCAINE SCREEN URINENEGATIVENEGATIVETBHMETHAMPHETAMINES SCREEN URINENEGATIVENEGATIVE TBHOPIATE SCREEN URINENEGATIVENEGATIVETBHAMPHETAMINE SCREEN URINENEGATIVE NEGATIVETBHBENZODIAZEPINES SCREEN URINENEGATIVENEGATIVETBHTRICYCLIC ANTIDEPRESSANT URINENEGATIVENEGATIVETBHMETHADONE SCREEN URINENEGATIVENEGATIVE TBHBARBITURATES SCREEN URINENEGATIVENEGATIVETBHOXYCODONE SCREEN URINENEGATIVE NEGATIVETBHBUPRENORPHINE SCREEN URINENEGATIVENEGATIVETBHComment: DRUG CLASS TEST SYSTEM CUT-OFF CONCENTRATIONS ARE FOLLOWS: AMP (Amphetamine): 500 ng/mL BAR (Barbiturates): 200 ng/mL BZO (Benzodiazepines): 150 ng/mL BUP (Buprenorphine): 10 ng/mL PREM (Cocaine): 150 ng/mL mAMP (Methamphetamine): 500 ng/mL MTD (Methadone): 200 ng/mL OPI (Opiates): 100 ng/mL OXY (Oxycodone): 100 ng/mL PCP (Phencyclidine): 25 ng/mL THC (Cannabinoids): 50 ng/mL TCA (Trycyclic Antidepressants): 300 ng/mL Specimen (Source)Anatomical Location / LateralityCollection Method / Volume Collection TimeReceived Time11/18/2024 7:09 AM EDT11/18/2024 7:24 AM EDT Narrative CLINISYNC - 11/18/2024 7:24 AM EDT W/CONFIRMATION Authorizing ProviderResult TypeResult StatusGeneric External Data Provider CLINISYNCFinal ResultPerforming OrganizationAddressCity/State/ZIP CodePhone Number CLINISYFORMERLY [facility] * MEASLES/MUMPS/RUBELLA IMMUNITY (10/16/2024 7:03 AM EDT)ComponentValueRef Range Test MethodAnalysis TimePerformed AtPathologist SignatureRUBELLA ANTIBODIES, IGG4.22Immune >0.99 indexTBHComment: Non-immune <0.90 ?Equivocal ??0.90 - 0.99 Immune >0.99 MEASLES ANTIBODIES, UVS939.0Immune >16.4 AU/mLTBHComment: Negative <13.5 ? Equivocal 13.5 - 16.4 Positive >16.4 Presence of antibodies to Rubeola is presumptive evidence of immunity except when acute infection is suspected. MUMPS ABS, LUE295.0Immune >10.9 AU/mLTBHComment: Negative <9.0 ?Equivocal ??9.0 - 10.9 Positive >10.9 A positive result generally indicates past exposure to Mumps virus or previous vaccination. Performed at: ??[facility] - [facility] [address] ??[id number] Tool Honing Machine Set Up Operator: Abdullahi Phelps PhD, Phone: ??[phone] Specimen (Source)Anatomical Location / LateralityCollection Method / Volume Collection TimeReceived Time10/16/2024 7:03 AM EDT10/16/2024 7:05 AM EDT Narrative CLINISYNC - 10/17/2024 8:08 AM EDT Authorizing ProviderResult TypeResult StatusGeneric External Data ProviderLAB BLOOD ORDERABLESFinal ResultPerforming OrganizationAddressCity/State/ZIP Code Phone Number [facility] * ALL HEPATITIS B SURFACE AB (10/16/2024 7:03 AM EDT)ComponentValueRef RangeTest MethodAnalysis TimePerformed AtPathologist SignatureHEP B SURFACE ABReactive. TBHComment: ? Non Reactive: Not immune to HBV infection. ? Equivocal: Unable to determine if anti-HBs ?is present at levels consistent ?with immunity. ?Reactive: Anti-HBs concentration detected ?at greater than 10 mIU/mL. ?Individual is considered to be ?immune to infection with HBV. Performed at: ??[facility] - [facility] [address], [place], [place] ??[id number] Tool Honing Machine Set Up Operator: Abdullahi Phelps PhD, Phone: ??[phone] Specimen (Source)Anatomical Location / LateralityCollection Method / Volume Collection TimeReceived Time10/16/2024 7:03 AM EDT10/16/2024 7:05 AM EDT Narrative CLINISYNC - 10/17/2024 5:08 AM EDT Authorizing ProviderResult TypeResult StatusGeneric External Data Provider CLINISYNCFinal ResultPerforming OrganizationAddressCity/State/ZIP CodePhone Number [facility] * Right diagnostic mammogram with tomosynthesis (12/29/2023 2:22 PM EDT) Anatomical RegionLateralityModalityBreastRightMammographySpecimen (Source) Anatomical Location / LateralityCollection Method / VolumeCollection Time Received Time12/29/2023 5:06 PM EDT Impressions 12/29/2023 5:16 PM [...] a cyst at the 10 o'clock position, feltto correlate the mammographic density. No convincing evidence [...] 2 ELECTRONICALLY SIGNED BY: Jarek Treadwell M.D. Authorizing ProviderResult TypeResult StatusChristy A Krueger NPIMG BI PROCEDURESFinal Result * Cologuard?? colon cancer screening (10/24/2022 1:23 PM EDT)ComponentValueRef RangeTest MethodAnalysis TimePerformed AtPathologist SignatureNONINV COLON CA DNA+OCC BLD SCRN STL-WCTYrbkwoihUfyrwpzy69/23/2023 1:34 PM [employer] (CLIA #:[id number])Comment: NEGATIVE TEST RESULT. A negative Cologuard result indicates a low likelihood that a colorectal cancer (CRC) or advanced adenoma (adenomatous polyps with more advanced pre-malignant features) ??is present. The chance that a person with a negative Cologuard test has a colorectal cancer is less than 1in 1500 (negative predictive value >99.9%) or has an advanced adenoma is less than 5.3% (negative predictive value 94.7%). These data are based on a prospective cross-sectional study of 10,000individuals at average risk for colorectal cancer who were screened with both Cologuard and colonoscopy. (Boyd Garcia et al, N Engl J Med 2014;370(14):3253-5061) The normal value (reference range) for this assay is negative. COLOGUARD RE-SCREENING RECOMMENDATION: Periodic colorectal cancer screening is an important part ofpreventive healthcare for asymptomatic individuals at average risk for colorectal cancer. ??Following a negative Cologuard result, the [employer] and U.S. Multi-Society Task Force screening guidelines recommend a Cologuard re-screening interval of 3 years. References: [employer] Guideline for Colorectal Cancer Screening: https://www.cancer.or g/cancer/xrdiz-wavqrr-aqhzhl/bzjdvpdbh-jltgzkedv-ffaddze/acs-recommendations.htm dalia; Jamari ANDERSON, Felicita MCINTOSH, Arun BoschK, Colorectal Cancer Screening: Recommendations for Physicians and Patients from the U.S. Multi-Society Task Force on Colorectal Cancer Screening , Am J Gastroenterology 2017; 112:4399-2397. TEST DESCRIPTION: Composite algorithmic analysis of stool DNA-biomarkers with hemoglobin immunoassay. ?? Quantitative values of individual biomarkers are not reportable and are not associated with individual biomarker result reference ranges. Cologuard is intended for colorectal cancer screening ofadults of either sex, 45 years or older, [...] (Boyd Thorne al, N Engl J Med 2014;370(14):8473-7627.) Cologuard may produce a false negative or false positive result (no colorectal cancer or precancerous polyp present at colonoscopy follow up). A negative Cologuard test result does not guarantee the absence of CRC or advanced adenoma (pre-cancer). The current Cologuard screening interval is every 3 years. ([place] [employer] and U.S. Multi-Society Task Force). Cologuard performance data in a 10,000 patient pivotal study using colonoscopy as the reference method can be accessed at the following location: www.[employer].RockYou/results. Additional description of the Cologuard test process, warnings and precautions can be found at www.cologuard.com. Specimen (Source)Anatomical Location / LateralityCollection Method / Volume Collection TimeReceived TimeStool specimen (specimen)10/24/2022 1:23 PM EDT 10/27/2022 10:39 PM EDT Narrative Authorizing ProviderResult TypeResult StatusPacaldwell medical centeria [facility] MOLECULAR DIAGNOSTICS ORDERABLESFinal ResultPerforming OrganizationAddress City/State/ZIP CodePhone Number .X[employer] (CLIA #:[id number]) [address] [address] [phone] [employer] (CLIA #:[id number]) [address] [address] from Last 3 Months or Most Recently Relevant to Health Maintenance Additional Health Concerns Active ProblemsNoted DateDiagnosed DatePatient on antidepressant monitoring plan 07/24/2024 Insurance * Guarantor: Lauren Hagan TypeRelation to PatientDate of BirthPhone Billing AddressPersonal/OlxfogEcmb97/ [address] [place] [phone] Care Teams Team MemberRelationshipSpecialtyStart DateEnd Date Jolie Mohamud MD [address] [place], [place] [id number] PCP - GeneralFamily Medicine08/11/22 Rachele Mccallum NP [address] [facility] [address] [place] [phone] PCP - [facility]06/13/24 Rachele Mccallum NP [address] [place] [address] Nurse PractitionerFamily Medicine08/11/22 Anna Pino DO [address] [place] [address] Referring PhysicianNeurology05/31/23
--- OUTSIDE RECORDS SUMMARY | 2025-01-05 10:21 | XMS_ITS | Encounter Summary ---
Author Organization [facility] Healthcare Address [address] [place] [address] Care Team Providers Care Bale Coverer Name Role Phone Jolie Mohamud MD Primary Care Provider [phone] Rachele Mccallum WET CROWN BLOCKING OPERATOR Unavailable [phone] Anna Pino DO Unavailable [phone] Rachele Mccallum WET CROWN BLOCKING OPERATOR Unavailable Encounter Details DateTypeDepartmentCare Team (Latest Contact Info)Qmuxjfboifl83/23/2025Telephone [facility] [address] [place] [address] Jolie Mohamud MD [address] [place] [address] Social History Tobacco UseTypesPacks/DayYears UsedDateSmoking Tobacco: FormerCigarettes0.526.5 [...] relatives?Once a week05/23/2023How often do you attend taoist or congregational services?More than 4 times per year05/23/2023o you belong to any clubs or organizations such as taoist groups, unions, fraternal or athletic groups, or school groups?Yes05/23/2023How often do you attend meetings of the clubs or organizations you belong to?More than 4 times per year05/23/2023 Are you , , , , never , or living with a partner?Tzxhlph7905/23/2023UDIT-CAnswerDate RecordedQ1: How often do you have a [...] heating?Not hard at all05/23/2023HQ-2AnswerDate RecordedPatient Health Questionnaire-2 Izsoc882[facility] [place] [facility] - Occupational Stress QuestionnaireAnswerDate RecordedDo you feel stress - tense, restless, nervous, or anxious, or unable to sleep at night because yourmind is troubled all the time - these days?To some ctsnpm9605/23/2023Exercise Vital Sign AnswerDate RecordedOn average, how many [...] sleep or slept in ashelter (including now)?No 05/23/2023CommentsUnknownSex and Gender InformationValueDate RecordedSex Assigned at BirthNot on fileLegal CefOsmfnm16/15/2023 6:47 PM EDTGender Identity Not on fileSexual OrientationNot on filedocumented as of this encounter Miscellaneous Notes * Telephone Encounter - Marbella Beth - 01/04/2025 1:47 PM EDT Please order yearly mammogram documented in this encounter Plan of Treatment DateTypeDepartmentCare Team (Latest Contact Info)Yzxibmghelq99/17/2025 4:00 PM ESTAncillary Procedure [facility] [address] [facility] [address] [place] [phone] documented as of this encounter Goals GoalPatient Goal [...] DateEnd Date Jolie Mohamud MD [address] [place] [address] PCP - GeneralFamily Medicine08/11/22 Rachele Mccallum NP [address] [place] [address] [facility]06/13/24 Rachele Mccallum NP [address] [place] [address] Nurse PractitionerFamily Medicine08/11/22 Anna Pino DO [address] [place] [address] Referring PhysicianNeurology05/31/23documented as of this encounter
--- OUTSIDE RECORDS SUMMARY | 2025-01-05 10:21 | XMS_ITS | Clinical Summary ---
Author Organization Private Outlet tem Address [facility] [address] [place] [address] Care Team Providers Care Register Clerk Name Role Phone Jolie Mohamud MD Primary Care Provider Allergies Active AllergyReactionsCriticalityNoted DateCommentsAmoxicillin-Pot Clavulanate Other (See Comments)07/27/2023 Causes yeast infection TjserKaeoSuo33/23/2020 Medications MedicationSigDispense QuantityRefillsLast FilledStart DateEnd DateStatus oxybutynin XL (DITROPAN-XL) 10 mg 24 hr tablet Take 1 tablet (10 mg total) by mouth in the morning.Active GREEN TEA EXTRACT ORAL Take by mouth.Active omeprazole (PriLOSEC) 40 mg capsule Take 1 capsule (40 mg total) by mouth 2 (two) times a day. 40 capsule Active DULoxetine (CYMBALTA) 60 mg capsule Take 1 capsule (60 mg total) by mouth in the morning.Active busPIRone (BUSPAR) 10 mg tablet Take 1 tablet (10 mg total) by mouth in the morning and 1 tablet (10 mg total) before bedtime.Active levocetirizine (XYZAL) 5 mg tablet Take 1 tablet (5 mg total) by mouth every evening.Active celecoxib (CeleBREX) 100 mg capsule Take 1 capsule (100 mg total) by mouth in the morning and 1 capsule (100 mg total) before bedtime.Active Active Problems ProblemNoted DateDiagnosed DateGERD (gastroesophageal reflux disease)06/27/2018 Family History Medical HistoryRelationNameCommentsEsophageal cancerMaternal UncleBreast cancer Mothertriple negativeParkinsonismMotherCervical cancerPaternal Grandmother Pancreatic cancerPaternal Uncle 1Stomach cancerPaternal Uncle 2Breast cancer Paternal great-grandmotherRelationNameStatusCommentsFatherDeceasedMaternal Uncle MotherAlivePaternal GrandmotherDeceasedPaternal Uncle 1DeceasedPaternal Uncle 2 AlivePaternal great-grandmotherDeceased Social History Tobacco UseTypesPacks/DayYears UsedDateSmoking Tobacco: FormerSmokeless Tobacco: Never Tobacco Cessation:Counseling Given: Not Answered Comments:quit 9 years ago Alcohol UseStandard Drinks/WeekCommentsYes0 (1 standard drink = 0.6 oz pure alcohol)socialOverall Financial Resource Strain (CARDIA)AnswerDate RecordedHow hard is it for you to pay for the very basics like food, housing, medical care, and heating?Not hard at all11/04/2022RAPARE - TransportationAnswerDate Recorded In the past 12 months, has lack of transportation kept you from medical appointments or from getting medications?No11/04/2022In the past 12 months, has lack of transportation kept you from meetings, work, or from getting things needed for daily living?No11/04/2022Housing InstabilityAnswerDate RecordedAre you worried or concerned that in the next two months you may not have stable housing that you own, rent or stay in as a part of a household?No11/04/2022 ChildcareAnswerDate AzmjekihUxxgolylxNwxfhnk18/06/2019EmploymentAnswerDate SpqgbzeqGfxbuiixpjEhqrlub28/06/2019Hunger ScreeningAnswerDate RecordedWithin the past 12 months we worried whether our food would run out before we got money to buy more.Never True11/04/2022Within the past 12 months the food we bought just didn't last and we didn't have money to get more.Never True11/04/2022urpose - LifeAnswerDate RecordedPurpose and direction in oatsQetsdtt18/11/2021 CommentsNoSex and Gender InformationValueDate RecordedSex Assigned at BirthNot on fileLegal AajNwlnmv79/06/2015 11:43 AM EDTGender IdentityNot on fileSexual OrientationNot on file Last Filed Vital Signs Vital SignReadingTime TakenCommentsBlood Lbxgyujn306/7710 4:28 AM EDT Cyfss4458 4:28 AM VSGCqvtbzvytgp24.6 ??C (97.8 ??F)01/06/2020 4:28 AM EDTRespiratory Ulma5862 4:28 AM EDTOxygen Oujzxknsqg21%01/06/2020 4:28 AM EDTInhaled Oxygen Concentration--Rvlcqg097.4 kg (250 lb)07/27/2023 9:36 AM WGEZjnewb789.6 cm (5' 6 )07/27/2023 9:36 AM EDTBody Mass Index40.35007/27/2023 9:36 AM EDT Plan of Treatment Health MaintenanceDue DateLast DoneCommentsDepression Ihsufytgy19/22/1984Zoster (Shingles) Vaccine (2 of 2)/4Adult BMI Jvhovbloc22/14/2025 07/27/2023Tobacco Euxqnjavw64/4COVID-19 Vaccine (3 - season)507/, 09/11/2020Influenza Fpumjdx13/12/2023, 12/10/2022, 12/29/2021, Additional history existsDTaP,Tdap and Td Vaccines (2 - Td or Tdap) Medical Devices Not on file Insurance Care Teams Team MemberRelationshipSpecialtyStart DateEnd Date Jolie Mohamud MD [address] [place] [address] PCP - GeneralFamily Medicine06/06/18
--- OUTSIDE RECORDS SUMMARY | 2025-01-05 10:21 | XMS_ITS | Patient Health Record ---
Author Organization [facility] [place] Address [address] [place] [address] Care Team Providers Care [facility] Name Role Phone None, Unknown or Primary Care Provider Unavailab leora BrasherRajat dougherty Unavailable [phone] Ema Hanson Unavailable [phone] KenKelvin varner Unavailable [phone] Allergies Allergen (clinical drug ingredient) Drug/Non Drug Allergy documented on EMR Reaction Allergy Type Onset Date Status Information temporarily unavailable Augmentin cause s yeast infection Drug Allergy Active Reason For Referral No Information Medications Medication SIG (Take, Route, Frequency, Duration) Notes Start Date End Date Status Mirabegron ER 50 MG 1 tablet Orally Once a day; Duration: 30 days 5ActivecloNIDine HCl 0.1 MGOral; Duration: 30 DaysActiveMultivitamin ZydeaxAbzytntjfe10/24/2025ActiveoxyBUTYnin Chloride ER 10 MGTAKE 1 TABLET (10 MG) BY MOUTH DAILY DO NOT CRUSH, CHEW, OR SPLIT. Oral; Duration: 90 Days Not-TakingBoswelliaActivebusPIRone HCl 10 MGTAKE 2 TABLETS BY MOUTH IN THE MORNING AND 2 TABLETS BEFORE BEDTIME. Oral; Duration: 90 DaysActiveCeleBREX QyeummYmonyzmrpOtlercKnuiywbzen98/24/0949QapjspCmzjlbuqRvaddoKrqxjjr44/24/2025 Active Social History Tobacco Use: Social History Observation Description Date Details (start date - stop date) Former Smoker NA - NA Tobacco Control (Standard) Question Answer Notes Tobacco use: Former smoker AUDIT-C (Standard) Question Answer Notes Did you have a drink containing alcohol in the p ast year? Yes How often did you have a drink containing alcohol in the past year?Never (0 point)How many drinks did you have on a typical day when you were drinking in the past year?1 or 2 drinks (0 point)How often did you have six or more drinks on one occasion in the past year?Less than monthly (1 point)Points1 InterpretationNegative Problems Problem Type SNOMED Code ICD Code Onset Dates Problem Status W/U Status Risk Notes Problem Information temporarily unavaila ble Unspecified urinary incontinence (R32) Activeconfirmed Vital Signs Height 66 in 06/26/2024 Iwfmcj143 lbs06/26/2024BMI31.47 kg/m206/26/2024 Procedures Procedure Date Ordered Date Performed Result Body Sit e Urodynamics 05/08/2024 05/08/2024 N/A Cystoscopy in Xrjcrj22N/A Encounters Encounter Location Date Provider Diagnosis [facility] [address] [place] [address] 06/26/2024 Rajat Lewis Unspecified urinary incontinence R32 [facility] [address] [place] [address] 05/08/2024 Rajat Lewis Unspecified urinary incontinence R32 [facility] [address] [place] [address] 06/20/2024 Ema Hanson Unspecified urinary incontinence R32 Assessments Encounter Date Diagnosis (ICD Code) Assessment Notes Treatment Notes Treatment Clinical Notes Section Notes 05/08/2024 Unspecified urinary incontinence (ICD-10 - R32) timed and double void pelvic floor therapy urodynamics cysto gemtesa trial if not better, refer to [facility] for pubovag sling vs urethral bulking agent 06/20/2024Unspecified urinary incontinence (ICD-10 - R32) Urodynamics Study: [...] be botox to increase her bladder capacity. 06/26/2024Unspecified urinary incontinence (ICD-10 - R32) try myrbetriq and timed void if not better do botox first may eventually need pubovag sling Plan Of Treatment No Information Insurance Providers Payer Name Payer Address Payer Phone Subscriber Number Group Number Insured Name Patient Relationship to Insured Coverage Start Date Coverage End Date [address] [place] [address] [id number] Lauren Hagan Self - patient is the insured Medical (General) History Medical History History ICD Code arthritis depressionUnspecified urinary tyqcvdssswpvN81Lwcltwzs History Surgery Date(Month/Year) tubal ligation appendectomyhysterectomycholecystectomyERCPbladder kfkql2823
[2025-01-05 11:31] LABS: Alanine Aminotransferase 26 U/L (14-59); Aspartate Amino Transferase 14 U/L (15-37)
== END 2025-01-05 10:17 | disposition home or self-care (01) ==
LOC: LAB 10:17
PROVIDERS: PCP Family Medicine; Visit Provider Nurse Practitioner Family
DX: R23.2 Flushing (principal); N95.1 Menopausal and female climacteric states
CPT/HCPCS: 36415; 84450; 84460

== ENCOUNTER 2025-01-30 12:52 | Outpatient (OUT) | payer BC, SELFPAY ==
[2025-01-30 13:41] LABS: Hematocrit 39.1 % (36.0-48.0); Hemoglobin 12.9 g/dL (12.0-16.0); Immature Granulocytes Abs Auto 0.02 10^3/uL (0.00-0.03); Immature Granulocytes Pct Auto 0.3 % (0.0-0.5); Lymphocytes Absolute Auto 2.7 10^3/uL (1.2-3.8); Mean Corpuscular HGB Conc 33.0 g/dL (29.9-35.2); Mean Corpuscular Hemoglobin 31.0 pg (26.7-34.0); Mean Corpuscular Volume 94.0 fL (81.0-99.0); Platelet Count 321 10^3/uL (150-450); Red Blood Count 4.16 10^6/uL (4.20-5.40); White Blood Count 7.6 10^3/uL (4.0-11.0)
== END 2025-01-30 12:53 | disposition home or self-care (01) ==
LOC: LAB 12:52
PROVIDERS: PCP Family Medicine; Visit Provider Family Medicine
DX: R61 Generalized hyperhidrosis (principal)
CPT/HCPCS: 36415; 85025; 85652